=== PATIENT | male | born 1940 | race Caucasian/White ===

== ENCOUNTER 2017-07-20 22:58 | Observation (INO) | payer MEDICARE, BC ==
[2017-07-20] MEDS ORDERED: Acetaminophen 500 MG Tab PO ONE (23:22)
--- NOTE | 2017-07-20 23:41 | EDM.PDOC ---
ED HPI GENERAL MEDICAL PROBLEM - General Chief Complaint: Fever Stated Complaint: ILLNESS Time Seen by Provider: 07/20/17 23:05 Source of Information: Reports: Patient, Family History Limitations: Reports: No Limitations - History of Present Illness INITIAL COMMENTS - FREE TEXT/NARRATIVE: 76 years old male patient brought in by ambulance from home with chief complaint of not feeling well and having a fever. Started today. Denies any headache or neck pain. Denies any sore throat or runny nose or congestion. Denies any cough. Denies any chest pain or shortness breath. Denies any abdominal pain diarrhea or constipation. Patient stated that today it is a little bit harder for him to urinate. However denies any frequency or dysuria. No blood in the urine or stool. No sick contact. No recent travel. Bilateral Shoulder Pain Score (Numeric/FACES): 8 - Related Data Allergies Allergy/AdvReac Type Severity Reaction Status Date / Time simvastatin Allergy Muscle Verified 07/20/17 23:06 Aches cats Allergy Unknown not known Uncoded 07/20/17 23:06 cow milk Allergy Unknown unknown Uncoded 07/20/17 23:06 dogs Allergy Unknown unknown Uncoded 07/20/17 23:06 environmental Allergy Unknown unknown Uncoded 07/20/17 23:06 horses Allergy Unknown unknown Uncoded 07/20/17 23:06 Home Meds: Home Meds Cyclobenzaprine [Flexeril] 10 mg PO BEDTIME PRN 05/06/14 [History] Metoprolol Succinate [Toprol XL 50mg] 25 mg PO DAILY 05/06/14 [History] predniSONE 7.5 mg PO DAILY 05/06/14 [History] Albuterol [Proair HFA] 2 inh PO Q4HR PRN 08/23/16 [History] Folic Acid [Folic Acid] 1 mg PO DAILY 08/23/16 [History] Methotrexate Sodium [Methotrexate] 7 tab PO .EVERY 7 DAYS 08/23/16 [History] Docusate Sodium [Colace] 100 - 200 mg PO DAILY PRN 08/25/16 [History] Past Medical History HEENT History: Reports: Hard of Hearing Cardiovascular History: Reports: High Cholesterol, Hypertension Respiratory History: Reports: Sleep Apnea Gastrointestinal History: Reports: Chronic Constipation, Hemorrhoids, Other ( See Below) Other Gastrointestinal History: "yellow jaundice" at age 3yo Musculoskeletal History: Reports: RA Oncologic (Cancer) History: Reports: Other (See Below) Other Oncologic History: skin cancer Dermatologic History: Reports: Other (See Below) Other Dermatologic History: skin cancer - Past Surgical History GI Surgical History: Reports: Colonoscopy, Hernia, Inguinal Dermatological Surgical History: Reports: Skin Biopsy Social & Family History - Tobacco Use Smoking Status *Q: Unknown Ever Smoked - Recreational Drug Use Recreational Drug Use: No ED ROS GENERAL - Review of Systems Review Of Systems: ROS reveals no pertinent complaints other than HPI. ED EXAM, SEPSIS - Physical Exam Exam: See Below Exam Limited By: No Limitations General Appearance: Alert, WD/WN, No Apparent Distress Ears: Normal External Exam, Normal Canal, Hearing Grossly Normal, Normal TMs Nose: Normal Inspection, Normal Mucosa, No Blood Throat/Mouth: Normal Inspection, Normal Lips, Normal Teeth, Normal Gums, Normal Oropharynx, Normal Voice, No Airway Compromise Head: Atraumatic, Normocephalic Neck: Normal Inspection, Supple, Non-Tender, Full Range of Motion Respiratory/Chest: No Respiratory Distress, No Accessory Muscle Use, Chest Non- Tender, Crackles (Mild basilar crackle in the left lower lobe.) Cardiovascular: Normal Peripheral Pulses, No Edema, No Gallop, No JVD, No Murmur , No Rub, Tachycardia Extremities: Normal Inspection, Normal Range of Motion, Non-Tender, No Pedal Edema, Normal Capillary Refill Neurological: Alert, Oriented, CN II-XII Intact, Normal Cognition, Normal Gait, Normal Reflexes, No Motor/Sensory Deficits Psychiatric: Normal Affect, Normal Mood Course - Vital Signs Last Recorded V/S: Last Vital Signs Temp 38.0 C 07/21/17 00:00 Pulse 105 H 07/20/17 23:16 Resp 15 07/21/17 00:00 BP 141/92 H 07/21/17 00:00 Pulse Ox 92 L 07/21/17 00:00 - Orders/Labs/Meds Orders: Active Orders 24 hr Category Date Time Status Chest 1V Frontal [CR] Urgent Exams 07/20/17 23:32 Taken CULTURE BLOOD [BC] Urgent Lab 07/20/17 00:05 Received CULTURE BLOOD [BC] Urgent Lab 07/20/17 00:15 Received Piperacillin/Tazobactam [Zosyn] 3.375 gm Med 07/21/17 01:00 Ordered Sodium Chloride 0.9% [Normal Saline] 50 ml IV Q6H Sodium Chloride 0.9% [Normal Saline] 500 ml Med 07/20/17 23:45 Active IV .BOLUS Vancomycin 1 gm Med 07/21/17 00:50 Ordered Sodium Chloride 0.9% [Normal Saline] 250 ml IV ONETIME Blood Culture x2 Reflex Set [OM.PC] Urgent Oth 07/20/17 23:32 Ordered Medication Orders Sodium Chloride (Normal Saline) 500 mls @ 999 mls/hr IV .BOLUS [facility] Last Admin: 07/21/17 00:01 Dose: 999 mls/hr Piperacillin Sod/Tazobactam (Sod 3.375 gm/ Sodium Chloride) 50 mls @ 100 mls/ hr IV Q6H [facility] Vancomycin HCl 1 gm/ Sodium (Chloride) 250 mls @ 150 mls/hr IV ONETIME ONE Stop: 07/21/17 02:29 Labs: Laboratory Tests 07/20/17 07/20/17 07/20/17 Range/Units 23:32 23:32 23:32 WBC 13.7 H (4.5-11.0) K/uL RBC 4.38 (4.30-5.90) M/uL Hgb 13.7 (12.0-15.0) g/dL Hct 40.3 (40.0-54.0) % MCV 92 (80-98) fL MCH 31 (27-31) pg MCHC 34 (32-36) % Plt Count 182 (150-400) K/uL Neut % (Auto) 82 H (36-66) % Lymph % (Auto) 5 L (24-44) % Mcmullen % (Auto) 12 H (2-6) % Eos % (Auto) 0 L (2-4) % Baso % (Auto) 0 (0-1) % Sodium 132 L (140-148) mmol/L Potassium 4.0 (3.6-5.2) mmol/L Chloride 99 L (100-108) mmol/L Carbon Dioxide 25 (21-32) mmol/L Anion Gap 12.0 (5.0-14.0) mmol/L BUN 13 (7-18) mg/dL Creatinine 1.0 (0.8-1.3) mg/dL Est Cr Clr Drug Dosing 62.70 mL/min Estimated GFR (MDRD) > 60 (>60) Glucose 188 H (74-106) mg/dL Lactic Acid 1.8 (0.4-2.0) mmol/L Calcium 8.6 (8.5-10.1) mg/dL Total Bilirubin 1.1 H (0.2-1.0) mg/dL AST 20 (15-37) U/L ALT 29 (12-78) U/L Alkaline Phosphatase 96 (46-116) U/L Total Protein 7.4 (6.4-8.2) g/dL Albumin 3.6 (3.4-5.0) g/dL Globulin 3.8 H (2.3-3.5) g/dL Albumin/Globulin Ratio 1.0 L (1.2-2.2) Urine Color Urine Appearance Urine pH (4.5-8.0) Ur Specific [place] (1.008-1.030) Urine Protein (NEGATIVE) mg/dL Urine Glucose (UA) (NEGATIVE) mg/dL Urine Ketones (NEGATIVE) mg/dL Urine Occult Blood (NEGATIVE) Urine Nitrite (NEGAITVE) Urine Bilirubin (NEGATIVE) Urine Urobilinogen (NORMAL) mg/dL Ur Leukocyte Esterase (NEGATIVE) Urine RBC (0-5) Urine WBC (0-5) Ur Epithelial Cells Amorphous Sediment Urine Bacteria Urine Mucus 07/20/17 Range/Units 23:52 WBC (4.5-11.0) K/uL RBC (4.30-5.90) M/uL Hgb (12.0-15.0) g/dL Hct (40.0-54.0) % MCV (80-98) fL MCH (27-31) pg MCHC (32-36) % Plt Count (150-400) K/uL Neut % (Auto) (36-66) % Lymph % (Auto) (24-44) % Mcmullen % (Auto) (2-6) % Eos % (Auto) (2-4) % Baso % (Auto) (0-1) % Sodium (140-148) mmol/L Potassium (3.6-5.2) mmol/L Chloride (100-108) mmol/L Carbon Dioxide (21-32) mmol/L Anion Gap (5.0-14.0) mmol/L BUN (7-18) mg/dL Creatinine (0.8-1.3) mg/dL Est Cr Clr Drug Dosing mL/min Estimated GFR (MDRD) (>60) Glucose (74-106) mg/dL Lactic Acid (0.4-2.0) mmol/L Calcium (8.5-10.1) mg/dL Total Bilirubin (0.2-1.0) mg/dL AST (15-37) U/L ALT (12-78) U/L Alkaline Phosphatase (46-116) U/L Total Protein (6.4-8.2) g/dL Albumin (3.4-5.0) g/dL Globulin (2.3-3.5) g/dL Albumin/Globulin Ratio (1.2-2.2) Urine Color Yellow Urine Appearance Clear Urine pH 6.5 (4.5-8.0) Ur Specific [place] 1.010 (1.008-1.030) Urine Protein Negative (NEGATIVE) mg/dL Urine Glucose (UA) 250 H (NEGATIVE) mg/dL Urine Ketones Negative (NEGATIVE) mg/dL Urine Occult Blood Negative (NEGATIVE) Urine Nitrite Negative (NEGAITVE) Urine Bilirubin Negative (NEGATIVE) Urine Urobilinogen Normal (NORMAL) mg/dL Ur Leukocyte Esterase Negative (NEGATIVE) Urine RBC 0-5 (0-5) Urine WBC 0-5 (0-5) Ur Epithelial Cells Few Amorphous Sediment Few Urine Bacteria Rare Urine Mucus Few Meds: Medications Generic Name Dose Route Start Last Admin Trade Name Freq PRN Reason Stop Dose Admin Sodium Chloride 500 mls @ 999 mls/hr 07/20/17 23:45 07/21/17 00:01 Normal Saline IV 999 mls/hr .BOLUS [facility] Administration Piperacillin Sod/Tazobactam 50 mls @ 100 mls/hr 07/21/17 01:00 Sod 3.375 gm/ Sodium Chloride IV Q6H [facility] Vancomycin HCl 1 gm/ Sodium 250 mls @ 150 mls/hr 07/21/17 00:50 Chloride IV 07/21/17 02:29 ONETIME ONE Discontinued Medications Generic Name Dose Route Start Last Admin Trade Name Freq PRN Reason Stop Dose Admin Acetaminophen 1,000 mg 07/20/17 23:22 07/20/17 23:28 Tylenol Extra Strength PO 07/20/17 23:23 1,000 mg ONETIME ONE Administration - Re-Assessments/Exams Free Text/Narrative Re-Assessment/Exam: 07/20/17 23:40 Patient was seen and examined shortly after arrival. Started on monitoring manager. Patient meets SIRS criteria. Lactic acid was drawn and blood culture. IV Given 500 ml normal saline bolus. Given 1 g of Tylenol. Lab and imaging reviewed with the patient and his at the bedside. Chest x-ray suspicious for left lower lobe pneumonia. Urine unremarkable. Blood culture is pending. Patient is immunocompromised on methotrexate with no definitive clear source of infection and patient meets SIRS criteria. I opted to have him on broad- spectrum antibiotic Vanco, Zosyn for broader coverage. We'll might also need to add Levaquin for atypical coverage. Case was discussed was Dr. Cardenas hospitalist sales operations manager and he accepted admission for further management. Decision regarding adding Levaquin or any other antibiotic regimen will be up to him. Patient agrees with the plan. Stable for admission. 07/21/17 00:59 Departure - Departure Time of Disposition: 00:57 Disposition: Admitted As Inpatient 68 Condition: Good Clinical Impression: Sepsis, Pneumonia - Discharge Information Referrals: Dewey Cardenas MD [Primary Care Provider] - Forms: ED Department Discharge - My Orders Last 24 Hours: My Active Orders 07/20/17 00:05 CULTURE BLOOD [BC] Urgent 07/20/17 00:15 CULTURE BLOOD [BC] Urgent 07/20/17 23:32 Chest 1V Frontal [CR] Urgent Blood Culture x2 Reflex Set [OM.PC] Urgent 07/20/17 23:45 Sodium Chloride 0.9% [Normal Saline] 500 ml IV .BOLUS 07/21/17 00:50 Vancomycin 1 gm Sodium Chloride 0.9% [Normal Saline] 250 ml IV ONETIME 07/21/17 01:00 Piperacillin/Tazobactam [Zosyn] 3.375 gm Sodium Chloride 0.9% [Normal Saline] 50 ml IV Q6H - Assessment/Plan Last 24 Hours: My Active Orders 07/20/17 00:05 CULTURE BLOOD [BC] Urgent 07/20/17 00:15 CULTURE BLOOD [BC] Urgent 07/20/17 23:32 Chest 1V Frontal [CR] Urgent Blood Culture x2 Reflex Set [OM.PC] Urgent 07/20/17 23:45 Sodium Chloride 0.9% [Normal Saline] 500 ml IV .BOLUS 07/21/17 00:50 Vancomycin 1 gm Sodium Chloride 0.9% [Normal Saline] 250 ml IV ONETIME 07/21/17 01:00 Piperacillin/Tazobactam [Zosyn] 3.375 gm Sodium Chloride 0.9% [Normal Saline] 50 ml IV Q6H
[2017-07-20] MEDS ORDERED: Sodium Chloride 0.9% 500 ML IV SCH (23:45)
[2017-07-21] MEDS ORDERED: Piperacillin/Tazobactam 3.375 GM in Sodium Chloride 0.9% 50 ML IV SCH ×2 (01:00→02:00)
[2017-07-21] MEDS ORDERED: Acetaminophen 325 MG Tab PO PRN (01:43)
[2017-07-21] MEDS ORDERED: Sodium Chloride 0.9% 1,000 ML IV SCH (01:45)
[2017-07-21] MEDS ORDERED: CYCLOBENZAPRINE 10 MG PO PRN (01:53)
[2017-07-21] MEDS ORDERED: Docusate Sodium 100 MG Cap PO PRN (01:53)
[2017-07-21] MEDS ORDERED: Albuterol 8 GM Inhaler INH PRN ×2 (01:53→01:59)
[2017-07-21] MEDS ORDERED: Piperacillin/Tazobactam/Dext 3.375 GM in Premix Bag 1 BAG IV SCH ×2 (03:00→09:00)
[2017-07-21] MEDS ORDERED: Sodium Chloride 0.9% 50 ML ONE (03:35)
--- NOTE | 2017-07-21 05:46 | HP ---
CHIEF COMPLAINT: Fever. HISTORY OF PRESENT ILLNESS: This is a 76-year-old with significant rheumatoid arthritis, which has been somewhat flaring in shoulders with more pain, just did not feel well today, but really was not real descriptive as far as explaining how he did not feel well. He complained of his shoulders being painful and was noted to have a fever. His was concerned that maybe he was having a stroke, although there was no increase of symptoms in his arms or legs, swallowing or speaking problems. They called the ambulance for further evaluation, was noted to have a fever, but no definite identifiable source for the fever was identified. I was asked to admit the patient for further evaluation for a possible sepsis. PAST MEDICAL HISTORY: Significant for rheumatoid arthritis. MEDICATIONS: Albuterol inhaler p.r.n., Flexeril 10 mg at bedtime, docusate sodium 100 to 200 mg daily p.r.n., folic acid 1 mg daily, methotrexate 2.5 mg tablets 7 tablets every 7 days, metoprolol 25 mg daily extended release, and prednisone 2.5 mg daily. ALLERGIES: SIMVASTATIN, CATS, COW MILK, DOGS, HORSES, AND OTHER ENVIRONMENTAL ALLERGIES. SOCIAL HISTORY: Nonsmoker. . FAMILY HISTORY: Noncontributory. REVIEW OF SYSTEMS: Denies headaches, vision changes, or upper respiratory symptoms. No chest pain, shortness of breath, maybe a minimal cough. No nausea, vomiting, diarrhea, or constipation. No urinary problems reported. No swelling in his legs. No skin problems. No new neurologic complaints. He does complain of bilateral shoulder pain. OBJECTIVE: VITAL SIGNS: Weight 74 kg; initially temperature was 38.8, now 37.4; pulse 102; blood pressure 148/85; respirations 15; and O2 saturation 92% on room air. GENERAL: The patient is alert and oriented x3. Pharynx is clear. NECK: Supple. No adenopathy, thyromegaly, JVD, or carotid bruits. LUNGS: Clear. HEART: Regular without murmurs. ABDOMEN: Soft and nontender. No mass or organomegaly palpated. EXTREMITIES: No edema. SKIN: Negative. NEURO: Cranial nerves II through XII were grossly intact. Moves all extremities equally, but does have pain in his shoulders. LABORATORY DATA: White count slightly elevated at 13.7, hemoglobin 13.7, platelets 182,000 with 82% neutrophils, 5% lymphocytes, and 12% monocytes. Sodium 132, potassium 4.0, chloride 99, BUN 13, creatinine 1.0, and glucose 188. Liver function was normal. Had some sugar in his urine, but otherwise urine was unremarkable. IMAGING: Chest x-ray does not show a definite infiltrate, but await Radiology interpretation. Blood cultures are pending. ASSESSMENT: 1. Fever of unknown origin. The patient already started on IV vancomycin and Zosyn in the emergency room, which will continue. We will admit him under observation, anticipate less than 2 midnight stay. 2. Rheumatoid arthritis, for which he does see Rheumatology, on methotrexate. Dewey Cardenas MD /[id number]
[2017-07-21] MEDS: FOLIC ACID 1 MG PO SCH (08:53)
[2017-07-21] MEDS: PREDNISONE 2.5 MG PO SCH (08:54)
[2017-07-21] MEDS: Metoprolol Succinate 25 MG (PTOM) PO SCH (08:55)
[2017-07-21] MEDS ORDERED: predniSONE 5 MG Tab PO SCH (09:00)
[2017-07-22 08:07] VITALS: BP 141/96
[2017-07-22] MEDS: PREDNISONE 2.5 MG PO SCH (08:55)
[2017-07-22] MEDS: FOLIC ACID 1 MG PO SCH (08:55)
[2017-07-22] MEDS: Metoprolol Succinate 25 MG (PTOM) PO SCH (08:56)
--- NOTE | 2017-07-22 10:05 | PCM.DCSUM1 ---
Discharge Summary - Hospital Course Brief History: 76-year-old male with history of rheumatoid arthritis who presented with increased shoulder pain and weakness. He was admitted with concern for pneumonia and sepsis. - Discharge Data Discharge Date: 07/22/17 Discharge Disposition: Home, Self-Care 01 Condition: Good - Discharge Diagnosis/Problem(s) (1) Rheumatoid arthritis flare SNOMED Code(s): 125965989 ICD Code: M06.9 - RHEUMATOID ARTHRITIS, UNSPECIFIED Status: Acute - Patient Summary/Data Hospital Course: Jose was admitted for management of possible sepsis after he presented with fever and increased joint pains. There is no obvious route for infection at the time of presentation but with his mild tachycardia and fever there was concern for sepsis. He was started on broad-spectrum antibiotics at the time of presentation. After admission he did not have any additional fevers. The morning after admission he is feeling a little better but still has a fair amount of increased pain from baseline. He does not have a cough. His urine is clear. No abdominal pain. I elected to discontinue antibiotics with the suspicion that this is more of a rheumatoid arthritis flare been an infectious issue. We did increase his prednisone from 2.5 to 5 mg. Overnight following discontinuation of antibiotics there were no acute events. He did have one mild temperature elevation but no true fever. With the increased prednisone he had a fairly rapid improvement in his joint pains including both shoulders and wrists. He feels nearly back to his usual self at this time. His appetite has been good. He has been ambulating effectively and feels safe to go home at this point. He will continue his increased dose of prednisone for 4 more days before returning to his usual 2.5 mg dose. He will be following up this week if symptoms do not continue to improve or if things get worse. - Patient Instructions Diet: Regular Diet as Tolerated Activity: As Tolerated Showering/Bathing: May Shower Notify Provider of: Fever, Increased Pain, Nausea and/or Vomiting Other/Special Instructions: 1. You were in the hospital for management of fever and increased pain in your shoulders. Initially there was concern for infection but I do not believe you have an active infection. I think all of your symptoms were related to a flare of your rheumatoid arthritis. I would recommend that you take your methotrexate today as scheduled. I also recommend that you increase your prednisone to 5 mg daily for the next 4 days. 2. Please continue your other medications as previously prescribed with the exception of the prednisone listed above. 3. Please seek medical attention if you develop fever greater than 101, have severe pain not controlled with your current medications or if you develop sudden onset of shortness of breath or chest pain. - Discharge Plan Home Medications: Home Meds Cyclobenzaprine [Flexeril] 10 mg PO BEDTIME PRN 05/06/14 [History] Metoprolol Succinate [Toprol XL 50mg] 25 mg PO DAILY 05/06/14 [History] predniSONE 2.5 mg PO DAILY 05/06/14 [History] Albuterol [Proair HFA] 2 inh PO Q4HR PRN 08/23/16 [History] Folic Acid 1 mg PO DAILY 08/23/16 [History] Methotrexate Sodium [Methotrexate] 7 tab PO .EVERY 7 DAYS 08/23/16 [History] Docusate Sodium [Colace] 100 - 200 mg PO DAILY PRN 08/25/16 [History] Patient Handouts: Rheumatoid Arthritis, Prednisone tablets Referrals: Dewey Cardenas MD [Primary Care Provider] - (f/u as needed if symptoms do not continue to get better or they get worse) - Discharge Summary/Plan Comment DC Time >30 min.: No (25) - Patient Data Vitals - Most Recent: Last Vital Signs Temp 36.9 C 07/22/17 08:05 Pulse 93 07/22/17 08:56 Resp 16 07/22/17 08:05 BP 141/96 H 07/22/17 08:56 Pulse Ox 96 07/22/17 08:05 Weight - Most Recent: 78.925 kg I&O - Last 24 hours: Intake & Output 07/21/17 07/22/17 07/22/17 22:59 06:59 14:59 Intake Total 120 Output Total 200 500 450 Balance -200 -380 -450 Med Orders - Current: Current Medications Acetaminophen (Tylenol) 650 mg PO Q4H PRN PRN Reason: Pain (Mild 1-3)/fever Last Admin: 07/21/17 14:18 Dose: 650 mg Albuterol (Ventolin Hfa) 0 gm INH Q4H PRN PRN Reason: Shortness of Breath Cyclobenzaprine HCl (Flexeril) 10 mg PO BEDTIME PRN PRN Reason: Cramping Docusate Sodium (Colace) 100 - 200 mg PO DAILY PRN PRN Reason: Constipation Folic Acid (Folic Acid) 1 mg PO DAILY [facility] Last Admin: 07/22/17 08:55 Dose: 1 mg Metoprolol Succinate (Toprol Xl) 25 mg PO DAILY [facility] Last Admin: 07/22/17 08:56 Dose: 25 mg Prednisone 2.5mg ( (Ptom)) 0 each PO DAILY [facility] Last Admin: 07/22/17 08:55 Dose: 1 each Discontinued Medications Acetaminophen (Tylenol Extra Strength) 1,000 mg PO ONETIME ONE Stop: 07/20/17 23:23 Last Admin: 07/20/17 23:28 Dose: 1,000 mg Albuterol (Ventolin Hfa) 2 gm INH Q4H PRN PRN Reason: Shortness of Breath Sodium Chloride (Normal Saline) 500 mls @ 999 mls/hr IV .BOLUS [facility] Last Admin: 07/21/17 00:01 Dose: 999 mls/hr Piperacillin Sod/Tazobactam (Sod 3.375 gm/ Sodium Chloride) 50 mls @ 100 mls/ hr IV Q6H [facility] Last Admin: 07/21/17 03:02 Dose: Not Given Vancomycin HCl 1 gm/ Sodium (Chloride) 250 mls @ 150 mls/hr IV ONETIME ONE Stop: 07/21/17 02:29 Last Admin: 07/21/17 01:40 Dose: 150 mls/hr Sodium Chloride (Normal Saline) 1,000 mls @ 125 mls/hr IV ASDIRECTED [facility] Last Admin: 07/21/17 03:18 Dose: 125 mls/hr Piperacillin Sod/Tazobactam (Sod 3.375 gm/ Sodium Chloride) 50 mls @ 100 mls/ hr IV Q6H [facility] Last Admin: 07/21/17 03:02 Dose: Not Given Piperacillin/Tazobactam/ (Dextrose 3.375 gm/ Premix) 50 mls @ 100 mls/hr IV Q6H [facility] Last Admin: 07/21/17 03:46 Dose: 100 mls/hr Sodium Chloride (Normal Saline) Confirm Administered Dose 50 mls @ as directed .ROUTE .STK-MED ONE Stop: 07/21/17 03:36 Last Admin: 07/21/17 03:45 Dose: Not Given Piperacillin/Tazobactam/ (Dextrose 3.375 gm/ Premix) 50 mls @ 100 mls/hr IV Q6H [facility] Last Admin: 07/21/17 08:58 Dose: 100 mls/hr - Exam Quality Assessment: Denies: Supplemental Oxygen General: Reports: Alert, Oriented, Cooperative, No Acute Distress Neck: Reports: Supple Lungs: Reports: Normal Respiratory Effort GI/Abdominal Exam: Soft, No Distention Extremities: Increased Warmth (mild left anterior shoulder), Other (No thickening or warmth of either wrist joint) Psy/Mental Status: Reports: Alert, Normal Affect *Q Meaningful Use (DIS) - VTE *Q VTE Criteria *Q: - Stroke *Q Stroke Criteria *Q: - AMI *Q AMI Criteria *Q:
--- NOTE | 2017-07-23 09:23 | CR ---
Chest 1V Frontal INDICATION: fever FINDINGS: Comparison 04/07/2012. Shallow inspiration. No focal infiltrate. Chest otherwise negative.
== END 2017-07-22 10:55 | disposition home or self-care (01) ==
LOC: JP.ED 22:58 → JP.MS 07-21 01:43
PROVIDERS: ADMIT Family Medicine; ATTEND Internal Medicine
DX: M06.9 Rheumatoid arthritis, unspecified (principal); Z79.899 Other long term (current) drug therapy; Z88.8 Allergy status to other drugs, medicaments and biological substances; Z91.011 Allergy to milk products; Z91.048 Other nonmedicinal substance allergy status
CPT/HCPCS: 36415; 71010; 80048; 80053; 81001; 83605; 85025; 85027; 87040; 87086; 96361; 96365; 96366; 96367; 99217; 99284; 99285; A9270; G0378; J2543; J3370; J7040; J7050

== ENCOUNTER 2018-05-22 00:52 | Emergency (ER) | payer MEDICARE, BC ==
--- NOTE | 2018-05-22 01:23 | EDM.PDOC ---
ED HPI GENERAL MEDICAL PROBLEM - General Chief Complaint: Gastrointestinal Problem Stated Complaint: MEDICAL VIA NORTH Time Seen by Provider: 05/22/18 01:18 Source of Information: Reports: Patient, EMS, Old Records History Limitations: Reports: No Limitations - History of Present Illness INITIAL COMMENTS - FREE TEXT/NARRATIVE: 77 yo male developed nausea without vomiting and some diaphoresis tonight at home. EMS was called for transport. Is feeling almost back to normal on arrival. No fever or chest pain. No SOB. BM's have been normal. Feels worse if he tries to stand up. Onset: Today Onset Date: 05/22/18 Onset Time: 00:20 Duration: Minutes:, Improving Quality: Reports: Other (denies pain) Severity: Moderate (nausea) Improves with: Reports: Other (time or lying down) Worsens with: Reports: Other (standing) Context: Reports: Other (unknown) Associated Symptoms: Reports: Diaphoresis (now gone), Nausea/Vomiting (no vomiting). Denies: Chest Pain, Cough, Fever/Chills, Headaches, Shortness of Breath Treatments TRAINING COORDINATOR: Reports: Other (see below) Other Treatments TRAINING COORDINATOR: none - Related Data Allergies Allergy/AdvReac Type Severity Reaction Status Date / Time simvastatin Allergy Muscle Verified 05/22/18 01:43 Aches cats Allergy Unknown not known Uncoded 05/22/18 01:43 cow milk Allergy Unknown unknown Uncoded 05/22/18 01:43 dogs Allergy Unknown unknown Uncoded 05/22/18 01:43 environmental Allergy Unknown unknown Uncoded 05/22/18 01:43 horses Allergy Unknown unknown Uncoded 05/22/18 01:43 Home Meds: Home Meds Cyclobenzaprine [Flexeril] 10 mg PO BEDTIME PRN 05/06/14 [History] Metoprolol Succinate [Toprol XL 50mg] 25 mg PO DAILY 05/06/14 [History] Albuterol [Proair HFA] 2 inh PO Q4HR PRN 08/23/16 [History] Folic Acid 1 mg PO DAILY 08/23/16 [History] Methotrexate Sodium [Methotrexate] 7 tab PO .EVERY 7 DAYS 08/23/16 [History] Docusate Sodium [Colace] 100 - 200 mg PO DAILY PRN 08/25/16 [History] Past Medical History HEENT History: Reports: Hard of Hearing Cardiovascular History: Reports: High Cholesterol, Hypertension Respiratory History: Reports: Sleep Apnea Gastrointestinal History: Reports: Chronic Constipation, Hemorrhoids, Other ( See Below) Other Gastrointestinal History: "yellow jaundice" at age 3yo Musculoskeletal History: Reports: RA Oncologic (Cancer) History: Reports: Other (See Below) Other Oncologic History: skin cancer Dermatologic History: Reports: Other (See Below) Other Dermatologic History: skin cancer - Past Surgical History GI Surgical History: Reports: Colonoscopy, Hernia, Inguinal Dermatological Surgical History: Reports: Skin Biopsy Social & Family History - Caffeine Use Caffeine Use: Reports: None ED ROS GENERAL - Review of Systems Review Of Systems: See Below Constitutional: Reports: Diaphoresis HEENT: Reports: No Symptoms Respiratory: Reports: No Symptoms Cardiovascular: Reports: No Symptoms Endocrine: Reports: No Symptoms GI/Abdominal: Reports: No Symptoms : Reports: No Symptoms Musculoskeletal: Reports: No Symptoms Skin: Reports: Diaphoresis Neurological: Reports: No Symptoms, Tremors (chronic) ED EXAM, GI/ABD - Physical Exam Exam: See Below Exam Limited By: No Limitations General Appearance: Alert, WD/WN, No Apparent Distress Eyes: Bilateral: Normal Appearance Ears: Normal External Exam, Normal Canal, Hearing Grossly Normal Nose: Normal Inspection, Normal Mucosa, No Blood Throat/Mouth: Normal Inspection, Normal Lips, Normal Oropharynx, Normal Voice, No Airway Compromise Head: Atraumatic, Normocephalic Neck: Normal Inspection, Supple, Non-Tender Respiratory/Chest: No Respiratory Distress, Lungs Clear, Normal Breath Sounds, No Accessory Muscle Use Cardiovascular: Regular Rate, Rhythm, No Edema GI/Abdominal Exam: Normal Bowel Sounds, Soft, Non-Tender, Distended. No: No Distention, Guarding, Rigid, Rebound, Tender Back Exam: Normal Inspection. No: CVA Tenderness (R), CVA Tenderness (L) Extremities: Normal Inspection, Normal Range of Motion, Non-Tender, Pedal Edema (trace to both LE's below the knees). No: No Pedal Edema Neurological: Alert, Oriented, CN II-XII Intact, Normal Cognition, No Motor/ Sensory Deficits, Other (talks slowly and has mask-like facies, ? Parkinson's dz ) Psychiatric: Normal Mood, Flat Affect Skin Exam: Warm, Dry, Intact, Normal Color, No Rash Course - Vital Signs Last Recorded V/S: Last Vital Signs Temp 35.6 C 05/22/18 00:54 Pulse 66 05/22/18 01:25 Resp 14 05/22/18 01:25 BP 167/80 H 05/22/18 01:25 Pulse Ox 96 05/22/18 01:25 - Orders/Labs/Meds Orders: Active Orders 24 hr Category Date Time Status Abdomen 1V Upright [CR] Stat Exams 05/22/18 01:17 Taken UA W/MICROSCOPIC [URIN] Stat Lab 05/22/18 01:21 Ordered Labs: Laboratory Tests 05/22/18 05/22/18 Range/Units 01:25 01:25 WBC 6.9 (4.5-11.0) K/uL RBC 4.29 L (4.30-5.90) M/uL Hgb 13.6 (12.0-15.0) g/dL Hct 40.6 (40.0-54.0) % MCV 95 (80-98) fL MCH 32 H (27-31) pg MCHC 34 (32-36) % Plt Count 155 (150-400) K/uL Sodium 139 L (140-148) mmol/L Potassium 3.8 (3.6-5.2) mmol/L Chloride 103 (100-108) mmol/L Carbon Dioxide 27 (21-32) mmol/L Anion Gap 12.8 (5.0-14.0) mmol/L BUN 16 (7-18) mg/dL Creatinine 1.0 (0.8-1.3) mg/dL Est Cr Clr Drug Dosing 61.75 mL/min Estimated GFR (MDRD) > 60 (>60) Glucose 123 H (74-106) mg/dL Calcium 8.7 (8.5-10.1) mg/dL Troponin I < 0.017 (0.000-0.056) ng/mL - Radiology Interpretation Free Text/Narrative:: upright abd film-no sign of obstruction Departure - Departure Time of Disposition: 02:18 Disposition: Home, Self-Care 01 Condition: Good Clinical Impression: Nausea - Discharge Information *PRESCRIPTION DRUG MONITORING PROGRAM REVIEWED*: Not Applicable *COPY OF PRESCRIPTION DRUG MONITORING REPORT IN PATIENT JO ANN: Not Applicable Instructions: Nausea and Vomiting, Adult, [id number] Referrals: PCP,None [Primary Care Provider] - Forms: ED Department Discharge Additional Instructions: Get plenty of fluids daily, consider a dose of Miralax daily with a glass of water to keep your stools soft. Recheck with your provider if sx's continue, return here if worse. - My Orders Last 24 Hours: My Active Orders 05/22/18 01:17 Abdomen 1V Upright [CR] Stat 05/22/18 01:21 UA W/MICROSCOPIC [URIN] Stat - Assessment/Plan Last 24 Hours: My Active Orders 05/22/18 01:17 Abdomen 1V Upright [CR] Stat 05/22/18 01:21 UA W/MICROSCOPIC [URIN] Stat
[2018-05-22 02:18] VITALS: BP 164/75
--- NOTE | 2018-05-22 10:07 | CR ---
Abdomen 1V Upright FINDINGS: The bowel gas pattern is unremarkable. There is no bowel distention. There are no pathologi c air-fluid levels. No free air is seen. No pathologic calcifications are demonstrated. IMPRESSION: No acute findings are demonstrated.
== END 2018-05-22 02:46 | disposition home or self-care (01) ==
LOC: JP.ED 00:52
DX: R11.0 Nausea (principal); Z91.011 Allergy to milk products; Z91.09 Other allergy status, other than to drugs and biological substances; I10 Essential (primary) hypertension; Z88.8 Allergy status to other drugs, medicaments and biological substances
CPT/HCPCS: 36415; 74018; 74018-26; 80048; 84484; 85027; 99284

== ENCOUNTER 2018-11-03 14:16 | Emergency (ER) | payer MEDICARE, BC ==
[2018-11-03 15:57] VITALS: BP 141/79
--- NOTE | 2018-11-03 17:27 | EDM.PDOC ---
ED HPI GENERAL MEDICAL PROBLEM - General Chief Complaint: Neurological Problem Stated Complaint: SPEECH DISTURBANCE Time Seen by Provider: 11/03/18 14:57 Source of Information: Reports: Patient, Family History Limitations: Reports: No Limitations - History of Present Illness INITIAL COMMENTS - FREE TEXT/NARRATIVE: This man is here for some vague neuro symptoms. Last night he had a little problem word finding and then today they felt like his speech was a little bit slurred. The patient says that his mouth is dry and that's causing the problem. Sometimes a little bit weak but he's never had any kind of lateralizing weakness. Other than that he feels - Related Data Allergies Allergy/AdvReac Type Severity Reaction Status Date / Time simvastatin Allergy Muscle Verified 11/03/18 14:44 Aches cats Allergy Unknown not known Uncoded 11/03/18 14:44 cow milk Allergy Unknown unknown Uncoded 11/03/18 14:44 dogs Allergy Unknown unknown Uncoded 11/03/18 14:44 environmental Allergy Unknown unknown Uncoded 11/03/18 14:44 horses Allergy Unknown unknown Uncoded 11/03/18 14:44 Home Meds: Home Meds Cyclobenzaprine [Flexeril] 10 mg PO BEDTIME PRN 05/06/14 [History] Metoprolol Succinate [Toprol XL 50mg] 25 mg PO DAILY 05/06/14 [History] Albuterol [Proair HFA] 2 inh PO Q4HR PRN 08/23/16 [History] Folic Acid 1 mg PO DAILY 08/23/16 [History] Methotrexate Sodium [Methotrexate] 7 tab PO .EVERY 7 DAYS 08/23/16 [History] Docusate Sodium [Colace] 100 - 200 mg PO DAILY PRN 08/25/16 [History] Past Medical History HEENT History: Reports: Hard of Hearing Cardiovascular History: Reports: High Cholesterol, Hypertension Respiratory History: Reports: Sleep Apnea Gastrointestinal History: Reports: Chronic Constipation, Hemorrhoids, Other ( See Below) Other Gastrointestinal History: "yellow jaundice" at age 3yo Musculoskeletal History: Reports: RA Oncologic (Cancer) History: Reports: Other (See Below) Other Oncologic History: skin cancer Dermatologic History: Reports: Other (See Below) Other Dermatologic History: skin cancer - Infectious Disease History Infectious Disease History: Reports: Chicken Pox - Past Surgical History GI Surgical History: Reports: Colonoscopy, Hernia, Inguinal Dermatological Surgical History: Reports: Skin Biopsy Social & Family History - Family History Family Medical History: Unobtainable - Tobacco Use Smoking Status *Q: Never Smoker - Caffeine Use Caffeine Use: Reports: None ED ROS GENERAL - Review of Systems Review Of Systems: ROS reveals no pertinent complaints other than HPI. ED EXAM, NEURO - Physical Exam Exam: See Below Exam Limited By: No Limitations General Appearance: Alert, WD/WN, No Apparent Distress, Other (Speech sounds just a tiny bit slurred but does sound Like his mouth is dry although his mouth is intact moist) Eye Exam: Bilateral Eye: EOMI, PERRL Ears: Normal External Exam Nose: Normal Inspection Throat/Mouth: Normal Oropharynx Head Exam: Atraumatic Neck: Normal Inspection Respiratory/Chest: Lungs Clear Cardiovascular: Regular Rate, Rhythm, No Murmur GI/Abdominal: Soft, Non-Tender Neurological: Alert, Normal Mood/Affect, CN II-XII Intact, Normal Gait (Normal gait with assistance), No Motor/Sensory Deficits, Oriented x 3, Other (Speech may be slightly slurred but it is intelligible to me) Extremities: Normal Inspection Psychiatric: Normal Affect Skin Exam: Warm, Dry Course - Vital Signs Last Recorded V/S: Last Vital Signs Temp 36.5 C 11/03/18 14:57 Pulse 68 11/03/18 15:56 Resp 16 11/03/18 15:10 BP 141/79 H 11/03/18 15:56 Pulse Ox 95 11/03/18 15:56 - Orders/Labs/Meds Orders: Active Orders 24 hr Category Date Time Status Head wo Cont [CT] Stat Exams 11/03/18 14:58 Taken Labs: Laboratory Tests 11/03/18 11/03/18 11/03/18 Range/Units 15:10 15:10 16:15 WBC 6.1 (4.5-11.0) K/uL RBC 4.34 (4.30-5.90) M/uL Hgb 13.8 (12.0-15.0) g/dL Hct 40.8 (40.0-54.0) % MCV 94 (80-98) fL MCH 32 H (27-31) pg MCHC 34 (32-36) % Plt Count 166 (150-400) K/uL Neut % (Auto) 73 H (36-66) % Lymph % (Auto) 14 L (24-44) % [place] % (Auto) 11 H (2-6) % Eos % (Auto) 2 (2-4) % Baso % (Auto) 1 (0-1) % Sodium 139 L (140-148) mmol/L Potassium 3.8 (3.6-5.2) mmol/L Chloride 100 (100-108) mmol/L Carbon Dioxide 28 (21-32) mmol/L Anion Gap 14.8 H (5.0-14.0) mmol/L BUN 15 (7-18) mg/dL Creatinine 1.1 (0.8-1.3) mg/dL Est Cr Clr Drug Dosing 55.27 mL/min Estimated GFR (MDRD) > 60 (>60) Glucose 112 H (74-106) mg/dL Calcium 9.5 (8.5-10.1) mg/dL Total Bilirubin 0.7 (0.2-1.0) mg/dL AST 20 (15-37) U/L ALT 30 (12-78) U/L Alkaline Phosphatase 95 (46-116) U/L Total Protein 7.6 (6.4-8.2) g/dL Albumin 3.6 (3.4-5.0) g/dL Globulin 4.0 H (2.3-3.5) g/dL Albumin/Globulin Ratio 0.9 L (1.2-2.2) Urine Color Yellow Urine Appearance Clear Urine pH 6.0 (4.5-8.0) Ur Specific [place] 1.015 (1.008-1.030) Urine Protein Negative (NEGATIVE) mg/dL Urine Glucose (UA) Normal (NEGATIVE) mg/dL Urine Ketones Negative (NEGATIVE) mg/dL Urine Occult Blood Negative (NEGATIVE) Urine Nitrite Negative (NEGAITVE) Urine Bilirubin Negative (NEGATIVE) Urine Urobilinogen Normal (NORMAL) mg/dL Ur Leukocyte Esterase Negative (NEGATIVE) Urine RBC 0-5 (0-5) Urine WBC 0-5 (0-5) Ur Epithelial Cells Rare Amorphous Sediment Not seen Urine Bacteria Not seen Urine Mucus Rare - Radiology Interpretation Free Text/Narrative:: Head CT showed just age-related changes. - Re-Assessments/Exams Free Text/Narrative Re-Assessment/Exam: 11/03/18 17:25 After all labs and CT back we had him stand up and walk around little bit and he did just fine. The nurse thinks he might benefit from some physical therapy but there's nothing that would make it dangerous for him to go home. Departure - Departure Time of Disposition: 17:25 Disposition: Home, Self-Care 01 Condition: Fair Clinical Impression: TIA (transient ischemic attack) - Discharge Information Referrals: Dewey Cardenas MD [Primary Care Provider] - Additional Instructions: It's possible that you had a very mild mini stroke. If you're not already taking aspirin or any other blood thinner they go ahead and take one 81 mg aspirin daily. Follow-up with your doctor within a day or 2. - My Orders Last 24 Hours: My Active Orders 11/03/18 14:58 Head wo Cont [CT] Stat - Assessment/Plan Last 24 Hours: My Active Orders 11/03/18 14:58 Head wo Cont [CT] Stat
== END 2018-11-03 17:41 | disposition home or self-care (01) ==
LOC: JP.ED 14:16
DX: G45.9 Transient cerebral ischemic attack, unspecified (principal); I10 Essential (primary) hypertension; M06.9 Rheumatoid arthritis, unspecified; Z79.899 Other long term (current) drug therapy; Z91.011 Allergy to milk products; Z91.09 Other allergy status, other than to drugs and biological substances
CPT/HCPCS: 36415; 70450; 80053; 81001; 85025; 99284; 99285-25

== ENCOUNTER 2020-06-02 15:15 | Emergency (ER) | payer MEDICARE, BC ==
[2020-06-02 16:59] VITALS: BP 193/92; PULSE 79
--- NOTE | 2020-06-02 18:19 | EDM.PDOC ---
ED HPI GENERAL MEDICAL PROBLEM - General Chief Complaint: Neuro Symptoms/Deficits Stated Complaint: MEDICAL VIA [facility]TH Time Seen by Provider: 06/02/20 16:15 Source of Information: Reports: Patient, Family History Limitations: Reports: No Limitations - History of Present Illness INITIAL COMMENTS - FREE TEXT/NARRATIVE: This is a 79 yo gentleman with hx of Parkinson's disease who presents with concerns of gait instability. He reports that for the last several days he has felt more unstable with his gait, particularly when he stands up out of a chair. He believes this is due to running out of his Sinemet. He denies any fevers or chills, shortness of breath, abdominal pain. He does have urinary frequency. He has no focal weakness. He does not feel presyncopal. He has not fallen or struck his head. - Related Data Allergies Allergy/AdvReac Type Severity Reaction Status Date / Time simvastatin Allergy Muscle Verified 06/02/20 15:19 Aches cats Allergy Unknown not known Uncoded 06/02/20 15:19 cow milk Allergy Unknown unknown Uncoded 06/02/20 15:19 dogs Allergy Unknown unknown Uncoded 06/02/20 15:19 environmental Allergy Unknown unknown Uncoded 06/02/20 15:19 horses Allergy Unknown unknown Uncoded 06/02/20 15:19 Home Meds: Home Meds Cyclobenzaprine [Flexeril] 10 mg PO BEDTIME PRN 05/06/14 [History] Metoprolol Succinate [Toprol XL 50mg] 25 mg PO DAILY 05/06/14 [History] Albuterol [Proair HFA] 2 inh PO Q4HR PRN 08/23/16 [History] Folic Acid 1 mg PO DAILY 08/23/16 [History] Methotrexate Sodium [Methotrexate] 7 tab PO .EVERY 7 DAYS 08/23/16 [History] Docusate Sodium [Colace] 100 - 200 mg PO DAILY PRN 08/25/16 [History] Carbidopa/Levodopa [Sinemet 25-100 mg Tablet] 1 each PO BID #14 tablet 06/02/20 [Rx] predniSONE [Prednisone] 2.5 mg PO DAILY 06/02/20 [History] Past Medical History HEENT History: Reports: Hard of Hearing, Impaired Vision Cardiovascular History: Reports: High Cholesterol, Hypertension Respiratory History: Reports: Sleep Apnea Other Respiratory History: has cpap does not use Gastrointestinal History: Reports: Chronic Constipation, Hemorrhoids, Other (See Below) Other Gastrointestinal History: "yellow jaundice" at age 3yo Genitourinary History: Reports: Urinary Incontinence Musculoskeletal History: Reports: RA Neurological History: Reports: Parkinson's Immunologic History: Reports: None Oncologic (Cancer) History: Reports: Other (See Below) Other Oncologic History: skin cancer Dermatologic History: Reports: Other (See Below) Other Dermatologic History: skin cancer - Infectious Disease History Infectious Disease History: Reports: Chicken Pox - Past Surgical History Head Surgeries/Procedures: Reports: None HEENT Surgical History: Reports: Cataract Surgery Cardiovascular Surgical History: Reports: None Respiratory Surgical History: Reports: None GI Surgical History: Reports: Colonoscopy, Hernia, Inguinal Neurological Surgical History: Reports: None Oncologic Surgical History: Reports: None Dermatological Surgical History: Reports: Skin Biopsy Social & Family History - Family History Family Medical History: Unobtainable - Tobacco Use Smoking Status *Q: Never Smoker Second Hand Smoke Exposure: No - Caffeine Use Caffeine Use: Reports: None - Recreational Drug Use Recreational Drug Use: No ED ROS GENERAL - Review of Systems Review Of Systems: See Below Constitutional: Reports: No Symptoms HEENT: Reports: No Symptoms Respiratory: Reports: No Symptoms Cardiovascular: Reports: No Symptoms Endocrine: Reports: No Symptoms GI/Abdominal: Reports: No Symptoms : Reports: No Symptoms Musculoskeletal: Reports: No Symptoms Skin: Reports: No Symptoms Neurological: Reports: Difficulty Walking Psychiatric: Reports: No Symptoms Hematologic/Lymphatic: Reports: No Symptoms Immunologic: Reports: No Symptoms ED EXAM, NEURO - Physical Exam Exam: See Below Exam Limited By: No Limitations General Appearance: Alert, No Apparent Distress Ears: Normal External Exam Nose: Normal Inspection Throat/Mouth: Normal Inspection Head Exam: Atraumatic, Normocephalic Neck: Normal Inspection Respiratory/Chest: Lungs Clear Cardiovascular: Regular Rate, Rhythm GI/Abdominal: Soft, Non-Tender Neurological: Alert, Normal Mood/Affect, No Motor/Sensory Deficits, Other (tremor) Back Exam: Normal Inspection Extremities: Normal Inspection Psychiatric: Normal Affect, Normal Mood Skin Exam: Warm, Dry Course - Vital Signs Last Recorded V/S: Last Vital Signs Temp 36.8 C 06/02/20 15:26 Pulse 79 06/02/20 16:59 Resp 24 H 06/02/20 16:07 BP 193/92 H 06/02/20 16:59 Pulse Ox 96 06/02/20 16:07 - Orders/Labs/Meds Orders: Active Orders 24 hr Category Date Time Status EKG Documentation Completion [RC] ASDIRECTED Care 06/02/20 15:27 Active EKG 12 Lead [EK] Routine Ther 06/02/20 15:26 Ordered Labs: Laboratory Tests 06/02/20 06/02/20 06/02/20 Range/Units 16:47 16:47 17:28 WBC 5.1 (4.5-11.0) K/uL RBC 4.00 L (4.30-5.90) M/uL Hgb 12.6 (12.0-15.0) g/dL Hct 38.9 L (40.0-54.0) % MCV 97 (80-98) fL MCH 32 H (27-31) pg MCHC 32 (32-36) % Plt Count 164 (150-400) K/uL Sodium 140 (140-148) mmol/L Potassium 4.0 (3.6-5.2) mmol/L Chloride 103 (100-108) mmol/L Carbon Dioxide 28 (21-32) mmol/L Anion Gap 8.8 (5.0-14.0) mmol/L BUN 15 (7-18) mg/dL Creatinine 0.9 (0.8-1.3) mg/dL Est Cr Clr Drug Dosing 66.15 mL/min Estimated GFR (MDRD) > 60 (>60) Glucose 132 H (74-106) mg/dL Calcium 8.7 (8.5-10.1) mg/dL Total Bilirubin 0.8 (0.2-1.0) mg/dL AST 22 (15-37) U/L ALT 22 (12-78) U/L Alkaline Phosphatase 89 (46-116) U/L Total Protein 6.7 (6.4-8.2) g/dL Albumin 3.3 L (3.4-5.0) g/dL Globulin 3.4 (2.3-3.5) g/dL Albumin/Globulin Ratio 1.0 L (1.2-2.2) Urine Color Yellow (YELLOW) Urine Appearance Clear (CLEAR) Urine pH 6.0 (5.0-8.0) Ur Specific [place] 1.020 (1.008-1.030) Urine Protein Negative (NEGATIVE) mg/dL Urine Glucose (UA) Negative (NEGATIVE) mg/dL Urine Ketones Negative (NEGATIVE) mg/dL Urine Occult Blood Negative (NEGATIVE) Urine Nitrite Negative (NEGATIVE) Urine Bilirubin Negative (NEGATIVE) Urine Urobilinogen 0.2 (0.2-1.0) EU/dL Ur Leukocyte Esterase Negative (NEGATIVE) Urine RBC Not seen (0-5) Urine WBC Not seen (0-5) Ur Epithelial Cells Not seen Urine Bacteria Not seen - Re-Assessments/Exams Free Text/Narrative Re-Assessment/Exam: This is a 79-year-old male who presents with concerns of worsening Parkinson symptoms. This is in the setting of being out of his Sinemet. On exam he is found to have a tremor, he is somewhat soft spoken, but can relate history and is otherwise neuro intact. Performed basic screening labs and EKG which were unremarkable. I agree is likely to have worsening gait instability and parkinsonism since he has been off of Sinemet. He believes there was some sort of mixup with his medications, so I prescribed him a short course of this until he can touch base with his PCP or neurologist. I believe he is safe for discharge and patient is agreeable with our plan. We placed a referral to his PCP for follow-up. 06/02/20 18:26 Departure - Departure Time of Disposition: 18:17 Disposition: Home, Self-Care 01 Clinical Impression: Gait instability - Discharge Information Prescriptions: Carbidopa/Levodopa [Sinemet 25-100 mg Tablet] 1 each PO BID #14 tablet Instructions: How to Use a Cane Referrals: Dewey Cardenas MD [Primary Care Provider] - Forms: ED Department Discharge Additional Instructions: We did not find any abnormalities on your work up in the ER today. Your worsening Parkinson symptoms may be why you are having trouble with your gait. We have written a script for the medication you believe you are missing (sinemet). We have placed a referral to Dr Cardenas's office, please follow up with him. Return to the ER for worsening symptoms. Thank you for allowing us to care for you today. Sepsis Event Note (ED) - Evaluation Sepsis Screening Result: No Definite Risk - Focused Exam Vital Signs: Vital Signs Temp Pulse Resp BP Pulse Ox 06/02/20 16:59 79 193/92 H 06/02/20 16:07 75 24 H 156/75 H 96 06/02/20 15:26 36.8 C 81 16 158/91 H 95 06/02/20 15:23 36.8 C 81 16 158/91 H 95 - My Orders Last 24 Hours: My Active Orders 06/02/20 15:26 EKG 12 Lead [EK] Routine 06/02/20 15:27 EKG Documentation Completion [RC] ASDIRECTED - Assessment/Plan Last 24 Hours: My Active Orders 06/02/20 15:26 EKG 12 Lead [EK] Routine 06/02/20 15:27 EKG Documentation Completion [RC] ASDIRECTED
== END 2020-06-02 18:30 | disposition home or self-care (01) ==
LOC: JP.ED 15:15
DX: R26.89 Other abnormalities of gait and mobility (principal); R25.1 Tremor, unspecified; I10 Essential (primary) hypertension; Z88.8 Allergy status to other drugs, medicaments and biological substances; Z91.09 Other allergy status, other than to drugs and biological substances; Z91.011 Allergy to milk products; Z79.899 Other long term (current) drug therapy
CPT/HCPCS: 36415; 80053; 81001; 85027; 93005; 99284-25

== ENCOUNTER 2021-03-31 15:33 | Inpatient (IN) | payer MEDICARE, BC ==
[2021-03-31] MEDS ORDERED: Sodium Chloride 0.9% 1,000 ML IV SCH (16:15)
--- NOTE | 2021-03-31 16:21 | EDM.PDOC ---
ED HPI GENERAL MEDICAL PROBLEM - General Chief Complaint: General Stated Complaint: [facility] Time Seen by Provider: 03/31/21 15:50 Source of Information: Reports: Patient History Limitations: Reports: Other (limited historian) - History of Present Illness INITIAL COMMENTS - FREE TEXT/NARRATIVE: 80 year old male presents via EMS from home where he lives with his due to generalized weakness and left groin pain. Patient reports that he has had an intermittent "rash" to his left groin fold for "a while". He reports that he was seen by his PCP and given an ointment but symptoms seemed to have gotten worse since then. He reports that today he was too weak and tired to get out of bed so he called 911. He reports normal urination. Denies fevers. Onset: Gradual Duration: Day(s):, Getting Worse Location: Reports: Other (left groin) Quality: Reports: Other (painful) Severity: Moderate Improves with: Reports: None Worsens with: Reports: Movement Associated Symptoms: Reports: No Other Symptoms Left Groin Pain Score (Numeric/FACES): 0 - Related Data Allergies Allergy/AdvReac Type Severity Reaction Status Date / Time simvastatin Allergy Muscle Verified 06/02/20 15:19 Aches [id number] Reductase Allergy Cannot Verified 03/31/21 17:28 Inhibitor Remember sulfamethoxazole Allergy Cannot Verified 03/31/21 17:28 [From Remember Sulfamethoxazole-Trimethoprim] trimethoprim Allergy Cannot Verified 03/31/21 17:28 [From Remember Sulfamethoxazole-Trimethoprim] vancomycin Allergy Hives Verified 03/31/21 20:58 cats Allergy Unknown not known Uncoded 06/02/20 15:19 cow milk Allergy Unknown unknown Uncoded 06/02/20 15:19 dogs Allergy Unknown unknown Uncoded 06/02/20 15:19 environmental Allergy Unknown unknown Uncoded 06/02/20 15:19 horses Allergy Unknown unknown Uncoded 06/02/20 15:19 Home Meds: Home Meds Cyclobenzaprine [Flexeril] 10 mg PO BEDTIME PRN 05/06/14 [History] Metoprolol Succinate [Toprol XL 50mg] 25 mg PO DAILY 05/06/14 [History] Albuterol [Proair HFA] 2 inh PO Q4HR PRN 08/23/16 [History] Folic Acid 1 mg PO DAILY 08/23/16 [History] Methotrexate Sodium [Methotrexate] 7 tab PO .EVERY 7 DAYS 08/23/16 [History] Docusate Sodium [Colace] 100 - 200 mg PO DAILY PRN 08/25/16 [History] Carbidopa/Levodopa [Sinemet 25-100 mg Tablet] 1 each PO BID #14 tablet 06/02/20 [Rx] predniSONE [Prednisone] 2.5 mg PO DAILY 06/02/20 [History] Nystatin [Nystatin Crm] 1 dose TOP ASDIRECTED 03/31/21 [History] Past Medical History HEENT History: Reports: Hard of Hearing, Impaired Vision Cardiovascular History: Reports: High Cholesterol, Hypertension Respiratory History: Reports: Sleep Apnea Other Respiratory History: has cpap does not use Gastrointestinal History: Reports: Chronic Constipation, Hemorrhoids, Other (See Below) Other Gastrointestinal History: "yellow jaundice" at age 3yo Genitourinary History: Reports: Urinary Incontinence Musculoskeletal History: Reports: RA Neurological History: Reports: Parkinson's Immunologic History: Reports: None Oncologic (Cancer) History: Reports: Other (See Below) Other Oncologic History: skin cancer Dermatologic History: Reports: Other (See Below) Other Dermatologic History: skin cancer - Infectious Disease History Infectious Disease History: Reports: Chicken Pox - Past Surgical History HEENT Surgical History: Reports: Cataract Surgery GI Surgical History: Reports: Colonoscopy, Hernia, Inguinal Dermatological Surgical History: Reports: Skin Biopsy Social & Family History - Family History Family Medical History: Unobtainable - Tobacco Use Tobacco Use Status *Q: Unknown Ever Used Tobacco - Caffeine Use Caffeine Use: Reports: None - Recreational Drug Use Recreational Drug Use: No ED ROS GENERAL - Review of Systems Review Of Systems: See Below Constitutional: Reports: Malaise, Weakness, Fatigue HEENT: Reports: No Symptoms Respiratory: Reports: No Symptoms Cardiovascular: Reports: No Symptoms Endocrine: Reports: No Symptoms GI/Abdominal: Reports: No Symptoms : Reports: Other (significant erythema and edema to left groin area, there is a break in the skin, area is moist and foul odor is present. Swelling to scrotum with erythema as well) Musculoskeletal: Reports: No Symptoms Skin: Reports: Wound (cellulitis to left groin), Other Neurological: Reports: Weakness, Other (slight confusion, unsure if this is patients baseline) Psychiatric: Reports: No Symptoms Hematologic/Lymphatic: Reports: No Symptoms Immunologic: Reports: No Symptoms ED EXAM, GENERAL - Physical Exam Exam: See Below Free Text/Narrative:: Pt is alert and active on cart, significant swelling noted to scrotum with erythema that travels to left groin fold. Area is moist and there is a foul odor present. Edema LLE>RLE and is pitting x1. Pt is generally pale, skin is dry, dry oral mucous membranes. Respirations are regular and non labored. Exam Limited By: No Limitations General Appearance: Alert Throat/Mouth: Normal Inspection (dry) Head: Atraumatic Respiratory/Chest: No Respiratory Distress Cardiovascular: Normal Peripheral Pulses (BLE edema) GI/Abdominal: Soft, Non-Tender (Male) Exam: Scrotum Tenderness (L), Other (erythema, area is moist, foul odor) Extremities: Pedal Edema Neurological: Alert, Oriented Psychiatric: Normal Affect Skin Exam: Warm, Dry, Erythema, Wound/Incision Lymphatic: No Adenopathy Course - Vital Signs Text/Narrative:: CMC, CMP, Lactic, NS bolus 1000 mL, plan for admission due to cellulitis requiring IV ABX Last Recorded V/S: Last Vital Signs Temp 37.0 C 04/01/21 03:17 Pulse 108 H 04/01/21 03:17 Resp 16 04/01/21 03:17 BP 151/88 H 04/01/21 03:17 Pulse Ox 95 04/01/21 03:17 - Orders/Labs/Meds Orders: Active Orders 24 hr Category Date Time Status CULTURE BLOOD [BC] Urgent Lab 03/31/21 18:50 Received CULTURE BLOOD [BC] Urgent Lab 03/31/21 18:54 Received Sodium Chloride 0.9% [Normal Saline] 1,000 ml Med 03/31/21 16:15 Active IV ASDIRECTED Blood Culture x2 Reflex Set [OM.PC] Urgent Oth 03/31/21 18:43 Ordered Medication Orders Acetaminophen (Acetaminophen 325 Mg Tab) 650 mg PO Q4H PRN PRN Reason: Pain (Mild 1-3)/fever Albuterol (Albuterol 0.083% 2.5 Mg/3 Ml Neb Soln) 2.5 mg NEB Q4H PRN PRN Reason: Shortness Of Breath/wheezing Albuterol/Ipratropium (Albuterol/Ipratropium 3.0-0.5 Mg/3 Ml Neb Soln) 3 ml NEB QID PRN PRN Reason: Shortness Of Breath/wheezing Carbidopa/Levodopa (Carbidopa/Levodopa 25-100 Mg Tab) 1 tab PO BID [facility] Last Admin: 03/31/21 21:13 Dose: 1 tab Documented by: EMILY Cyclobenzaprine HCl (Cyclobenzaprine 10 Mg Tab) 10 mg PO BEDTIME PRN PRN Reason: Cramping Last Admin: 03/31/21 23:01 Dose: 10 mg Documented by: EMILY Docusate Sodium (Docusate Sodium 100 Mg Cap) 200 mg PO DAILY PRN PRN Reason: Constipation Folic Acid (Folic Acid 1 Mg Tab) 1 mg PO DAILY [facility] Sodium Chloride (Normal Saline) 1,000 mls @ 500 mls/hr IV ASDIRECTED [facility] Last Admin: 03/31/21 16:50 Dose: 500 mls/hr Documented by: NINOSKA Sodium Chloride (Normal Saline) 1,000 mls @ 125 mls/hr IV ASDIRECTED [facility] Last Admin: 04/01/21 04:44 Dose: 125 mls/hr Documented by: Infusion: 04/01/21 04:44 Dose: 125 mls/hr Documented by: Admin: 03/31/21 21:26 Dose: 125 mls/hr Documented by: EMILY Insulin Human Lispro (Insulin Lispro 100 Unit/Ml 3 Ml Kwikpen) 0 unit SUBCUT QIDACANDBED [facility]; Protocol Last Admin: 03/31/21 22:53 Dose: Not Given Documented by: INA Melatonin (Melatonin 3 Mg Tab) 6 mg PO BEDTIME PRN PRN Reason: Insomnia Metoprolol Succinate (Metoprolol Succinate 25 Mg Tab.Er) 25 mg PO DAILY [facility] Morphine Sulfate (Morphine 2 Mg/Ml Syringe) 2 mg IVPUSH Q2H PRN PRN Reason: Pain (severe 7-10) Nystatin (Nystatin Topical Powder 15 Gm Bottle) 0 gm TOP TID [facility] Last Admin: 03/31/21 21:24 Dose: 1 applic Documented by: EMILY Nystatin (Nystatin Susp 100,000 Unit/Ml 5 Ml Ud Cup) 5 ml PO QID [facility] Last Admin: 04/01/21 06:50 Dose: 5 ml Documented by: Admin: 03/31/21 21:15 Dose: 5 ml Documented by: EMILY Ondansetron HCl (Ondansetron 4 Mg Tab.Dis) 4 mg PO Q6H PRN PRN Reason: Nausea able to take PO Ondansetron HCl (Ondansetron 4 Mg/2 Ml Sdv) 4 mg IV Q4H PRN PRN Reason: Nausea/Vomiting Oxycodone HCl (Oxycodone 5 Mg Tab) 5 mg PO Q4H PRN PRN Reason: Pain (moderate 4-6) Pantoprazole Sodium (Pantoprazole 40 Mg Vial) 40 mg IV BEDTIME [facility] Last Admin: 03/31/21 21:21 Dose: 40 mg Documented by: EMILY Prednisone (Prednisone 5 Mg Tab) 2.5 mg PO DAILY@0800 [facility] Labs: Laboratory Tests 03/31/21 03/31/21 03/31/21 Range/Units 16:19 16:20 16:20 WBC 4.8 (4.5-11.0) K/uL RBC 3.33 L (4.30-5.90) M/uL Hgb 11.2 L (12.0-15.0) g/dL Hct 33.1 L (40.0-54.0) % MCV 99 H (80-98) fL MCH 34 H (27-31) pg MCHC 34 (32-36) % Plt Count 94 L (150-400) K/uL Neut % (Auto) 84.1 H (36-66) % Lymph % (Auto) 11.2 L (24-44) % Cascade % (Auto) 1.0 L (2-6) % Eos % (Auto) 3.5 (2-4) % Baso % (Auto) 0.2 (0-1) % Sodium (140-148) mmol/L Potassium (3.6-5.2) mmol/L Chloride (100-108) mmol/L Carbon Dioxide (21-32) mmol/L Anion Gap (5.0-14.0) mmol/L BUN (7-18) mg/dL Creatinine (0.8-1.3) mg/dL Est Cr Clr Drug Dosing mL/min Estimated GFR (MDRD) (>60) Glucose (74-106) mg/dL Lactic Acid 0.7 (0.4-2.0) mmol/L Calcium (8.5-10.1) mg/dL Total Bilirubin (0.2-1.0) mg/dL AST (15-37) U/L ALT (12-78) U/L Alkaline Phosphatase (46-116) U/L Total Protein (6.4-8.2) g/dL Albumin (3.4-5.0) g/dL Globulin (2.3-3.5) g/dL Albumin/Globulin Ratio (1.2-2.2) Urine Color Yellow (YELLOW) Urine Appearance Clear (CLEAR) Urine pH 5.5 (5.0-8.0) Ur Specific Anderson > 1.030 (1.008-1.030) Urine Protein Trace H (NEGATIVE) mg/dL Urine Glucose (UA) Normal (NEGATIVE) mg/dL Urine Ketones Negative (NEGATIVE) mg/dL Urine Occult Blood Negative (NEGATIVE) Urine Nitrite Negative (NEGATIVE) Urine Bilirubin Small H (NEGATIVE) Urine Urobilinogen 0.2 (0.2-1.0) EU/dL Ur Leukocyte Esterase Negative (NEGATIVE) Urine RBC 0-5 (0-5) Urine WBC Not seen (0-5) Ur Epithelial Cells Not seen Amorphous Sediment Not seen Urine Bacteria Rare Urine Mucus Not seen 03/31/21 Range/Units 16:20 WBC (4.5-11.0) K/uL RBC (4.30-5.90) M/uL Hgb (12.0-15.0) g/dL Hct (40.0-54.0) % MCV (80-98) fL MCH (27-31) pg MCHC (32-36) % Plt Count (150-400) K/uL Neut % (Auto) (36-66) % Lymph % (Auto) (24-44) % Cascade % (Auto) (2-6) % Eos % (Auto) (2-4) % Baso % (Auto) (0-1) % Sodium 138 L (140-148) mmol/L Potassium 3.8 (3.6-5.2) mmol/L Chloride 102 (100-108) mmol/L Carbon Dioxide 29 (21-32) mmol/L Anion Gap 10.8 (5.0-14.0) mmol/L BUN 21 H (7-18) mg/dL Creatinine 0.7 L (0.8-1.3) mg/dL Est Cr Clr Drug Dosing 83.70 mL/min Estimated GFR (MDRD) > 60 (>60) Glucose 108 H (74-106) mg/dL Lactic Acid (0.4-2.0) mmol/L Calcium 8.0 L (8.5-10.1) mg/dL Total Bilirubin 1.3 H D (0.2-1.0) mg/dL AST 26 (15-37) U/L ALT 32 (12-78) U/L Alkaline Phosphatase 75 (46-116) U/L Total Protein 6.1 L (6.4-8.2) g/dL Albumin 3.1 L (3.4-5.0) g/dL Globulin 3.0 (2.3-3.5) g/dL Albumin/Globulin Ratio 1.0 L (1.2-2.2) Urine Color (YELLOW) Urine Appearance (CLEAR) Urine pH (5.0-8.0) Ur Specific Anderson (1.008-1.030) Urine Protein (NEGATIVE) mg/dL Urine Glucose (UA) (NEGATIVE) mg/dL Urine Ketones (NEGATIVE) mg/dL Urine Occult Blood (NEGATIVE) Urine Nitrite (NEGATIVE) Urine Bilirubin (NEGATIVE) Urine Urobilinogen (0.2-1.0) EU/dL Ur Leukocyte Esterase (NEGATIVE) Urine RBC (0-5) Urine WBC (0-5) Ur Epithelial Cells Amorphous Sediment Urine Bacteria Urine Mucus Meds: Medications Generic Name Dose Route Start Last Admin Trade Name Freq PRN Reason Stop Dose Admin Acetaminophen 650 mg 03/31/21 20:32 Acetaminophen 325 Mg Tab PO Q4H PRN Pain (Mild 1-3)/fever Albuterol 2.5 mg 03/31/21 20:32 Albuterol 0.083% 2.5 Mg/3 Ml Neb Soln NEB Q4H PRN Shortness Of Breath/wheezing Albuterol/Ipratropium 3 ml 03/31/21 20:32 Albuterol/Ipratropium 3.0-0.5 Mg/3 Ml Neb Soln NEB QID PRN Shortness Of Breath/wheezing Carbidopa/Levodopa 1 tab 03/31/21 21:00 03/31/21 21:13 Carbidopa/Levodopa 25-100 Mg Tab PO 1 tab BID [facility] Administration Cyclobenzaprine HCl 10 mg 03/31/21 20:32 03/31/21 23:01 Cyclobenzaprine 10 Mg Tab PO 10 mg BEDTIME PRN Administration Cramping Docusate Sodium 200 mg 03/31/21 22:29 Docusate Sodium 100 Mg Cap PO DAILY PRN Constipation Folic Acid 1 mg 04/01/21 09:00 Folic Acid 1 Mg Tab PO DAILY [facility] Sodium Chloride 1,000 mls @ 500 mls/hr 03/31/21 16:15 03/31/21 16:50 Normal Saline IV 500 mls/hr ASDIRECTED [facility] Administration Sodium Chloride 1,000 mls @ 125 mls/hr 03/31/21 20:32 04/01/21 04:44 Normal Saline IV 125 mls/hr ASDIRECTED [facility] Administration Insulin Human Lispro 0 unit 03/31/21 20:32 03/31/21 22:53 Insulin Lispro 100 Unit/Ml 3 Ml Kwikpen SUBCUT Not Given QIDACANDBED [facility] Protocol Melatonin 6 mg 03/31/21 20:32 Melatonin 3 Mg Tab PO BEDTIME PRN Insomnia Metoprolol Succinate 25 mg 04/01/21 09:00 Metoprolol Succinate 25 Mg Tab.Er PO DAILY [facility] Morphine Sulfate 2 mg 03/31/21 20:32 Morphine 2 Mg/Ml Syringe IVPUSH Q2H PRN Pain (severe 7-10) Nystatin 0 gm 03/31/21 21:00 03/31/21 21:24 Nystatin Topical Powder 15 Gm Bottle TOP 1 applic TID [facility] Administration Nystatin 5 ml 03/31/21 22:00 04/01/21 06:50 Nystatin Susp 100,000 Unit/Ml 5 Ml Ud Cup PO 5 ml QID [facility] Administration Ondansetron HCl 4 mg 03/31/21 20:32 Ondansetron 4 Mg Tab.Dis PO Q6H PRN Nausea able to take PO Ondansetron HCl 4 mg 03/31/21 20:32 Ondansetron 4 Mg/2 Ml Sdv IV Q4H PRN Nausea/Vomiting Oxycodone HCl 5 mg 03/31/21 20:32 Oxycodone 5 Mg Tab PO Q4H PRN Pain (moderate 4-6) Pantoprazole Sodium 40 mg 03/31/21 21:00 03/31/21 21:21 Pantoprazole 40 Mg Vial IV 40 mg BEDTIME [facility] Administration Prednisone 2.5 mg 04/01/21 08:00 Prednisone 5 Mg Tab PO DAILY@0800 [facility] Discontinued Medications Generic Name Dose Route Start Last Admin Trade Name Bandar PRN Reason Stop Dose Admin Diphenhydramine HCl 25 mg 03/31/21 20:47 03/31/21 21:18 Diphenhydramine 50 Mg/Ml Sdv IVPUSH 03/31/21 20:48 25 mg ONETIME ONE Administration Diphenhydramine HCl Confirm 03/31/21 20:49 03/31/21 21:08 Diphenhydramine 50 Mg/Ml Sdv Administered 03/31/21 20:50 Not Given Dose 50 mg .ROUTE .STK-MED ONE Docusate Sodium 100 - 200 mg 03/31/21 20:32 Docusate Sodium 100 Mg Cap PO DAILY PRN Constipation Enoxaparin Sodium 30 mg 04/01/21 09:00 Enoxaparin 30 Mg/0.3 Ml Syringe SUBCUT DAILY [facility] Fluconazole 100 mg 03/31/21 20:32 03/31/21 21:13 Fluconazole 100 Mg Tab PO 03/31/21 20:33 100 mg ONETIME ONE Administration Sodium Chloride Confirm 03/31/21 18:52 03/31/21 19:04 Normal Saline Administered 03/31/21 18:53 Not Given Dose 50 mls @ as directed .ROUTE .STK-MED ONE Vancomycin HCl 1 gm/ Sodium 250 mls @ 166.667 mls/hr 03/31/21 19:00 03/31/21 19:07 Chloride IV 03/31/21 20:29 166.667 mls/hr ONETIME ONE Administration Ketorolac Tromethamine 30 mg 03/31/21 20:32 Ketorolac 30 Mg/Ml Sdv IVPUSH Q6H PRN Pain (moderate 4-6) Methylprednisolone Sodium Succinate 62.5 mg 03/31/21 20:55 03/31/21 21:19 Methylprednisolone Sodium Succinate 125 Mg/2 Ml Sdv IVPUSH 03/31/21 20:56 62.5 mg ONETIME ONE Administration Vancomycin HCl 1 gm 03/31/21 19:00 Vancomycin 1 Gm Sdv IV .PHARMACY TO DOSE [facility] Departure - Departure Time of Disposition: 20:10 Disposition: Admitted As Inpatient 68 Condition: Good Clinical Impression: Cellulitis of groin, left, Cellulitis - Discharge Information Sepsis Event Note (ED) - Evaluation Sepsis Screening Result: No Definite Risk - My Orders Last 24 Hours: My Active Orders 03/31/21 16:15 Sodium Chloride 0.9% [Normal Saline] 1,000 ml IV ASDIRECTED - Assessment/Plan Last 24 Hours: My Active Orders 03/31/21 16:15 Sodium Chloride 0.9% [Normal Saline] 1,000 ml IV ASDIRECTED
[2021-03-31] MEDS ORDERED: Sodium Chloride 0.9% 0 ML ONE (18:52)
[2021-03-31] MEDS ORDERED: Vancomycin 1 GM SDV IV SCH (19:00)
--- NOTE | 2021-03-31 20:25 | PCM.HP.2 ---
H&P History of Present Illness - General Date of Service: 03/31/21 Admit Problem/Dx: Admission Diagnosis/Problem Admission Diagnosis/Problem Cellulitis of left groin Source of Information: Patient, EMS Notes Reviewed, Family, Provider, RN History Limitations: Reports: No Limitations - History of Present Illness Initial Comments - Free Text/Narative: chief complaint-weakness ER Report History of Present Illness 80 year old male presents via EMS from home where he lives with his due to generalized weakness and left groin pain. Patient reports that he has had an in termittent "rash" to his left groin fold for "a while". He reports that he was seen by his PCP and given an ointment but symptoms seemed to have gotten worse since then. He reports that today he was too weak and tired to get out of bed so he called 911. He reports normal urination. Denies fevers. Onset: Gradual Onset of Symptoms: Reports: Gradual Duration of Symptoms: Reports: Day(s):, Getting Worse Location: Reports: Other (left groin and scrotum) Quality: Reports: Ache, Burning Severity: Severe Improves with: Reports: None Worsens with: Reports: None Context: Reports: Other (rash to the groin for months, now worse the past few days) Associated Symptoms: Reports: Malaise, Weakness Left Groin Pain Score (Numeric/FACES): 10 - Related Data Allergies/Adverse Reactions: Allergies Allergy/AdvReac Type Severity Reaction Status Date / Time simvastatin Allergy Muscle Verified 06/02/20 15:19 Aches Dunwkua-Rtd-Das Reductase Allergy Cannot Verified 03/31/21 17:28 Inhibitor Remember sulfamethoxazole Allergy Cannot Verified 03/31/21 17:28 [From Remember Sulfamethoxazole-Trimethoprim] trimethoprim Allergy Cannot Verified 03/31/21 17:28 [From Remember Sulfamethoxazole-Trimethoprim] vancomycin Allergy Hives Verified 03/31/21 20:58 cats Allergy Unknown not known Uncoded 06/02/20 15:19 cow milk Allergy Unknown unknown Uncoded 06/02/20 15:19 dogs Allergy Unknown unknown Uncoded 06/02/20 15:19 environmental Allergy Unknown unknown Uncoded 06/02/20 15:19 horses Allergy Unknown unknown Uncoded 06/02/20 15:19 Home Medications: Home Meds Cyclobenzaprine [Flexeril] 10 mg PO BEDTIME PRN 05/06/14 [History] Metoprolol Succinate [Toprol XL 50mg] 25 mg PO DAILY 05/06/14 [History] Albuterol [Proair HFA] 2 inh PO Q4HR PRN 08/23/16 [History] Folic Acid 1 mg PO DAILY 08/23/16 [History] Methotrexate Sodium [Methotrexate] 7 tab PO .EVERY 7 DAYS 08/23/16 [History] Docusate Sodium [Colace] 100 - 200 mg PO DAILY PRN 08/25/16 [History] Carbidopa/Levodopa [Sinemet 25-100 mg Tablet] 1 each PO BID #14 tablet 06/02/20 [Rx] predniSONE [Prednisone] 2.5 mg PO DAILY 06/02/20 [History] Nystatin [Nystatin Crm] 1 dose TOP ASDIRECTED 03/31/21 [History] Past Medical History HEENT History: Reports: Hard of Hearing, Impaired Vision Cardiovascular History: Reports: High Cholesterol, Hypertension Respiratory History: Reports: Sleep Apnea Other Respiratory History: has cpap does not use Gastrointestinal History: Reports: Chronic Constipation, Hemorrhoids, Other (See Below) Other Gastrointestinal History: "yellow jaundice" at age 3yo Genitourinary History: Reports: Urinary Incontinence Musculoskeletal History: Reports: RA Neurological History: Reports: Parkinson's Immunologic History: Reports: None Oncologic (Cancer) History: Reports: Other (See Below) Other Oncologic History: skin cancer Dermatologic History: Reports: Other (See Below) Other Dermatologic History: skin cancer - Infectious Disease History Infectious Disease History: Reports: Chicken Pox - Past Surgical History HEENT Surgical History: Reports: Cataract Surgery GI Surgical History: Reports: Colonoscopy, Hernia, Inguinal Dermatological Surgical History: Reports: Skin Biopsy Social & Family History - Family History Family Medical History: Unobtainable - Tobacco Use Tobacco Use Status *Q: Unknown Ever Used Tobacco - Caffeine Use Caffeine Use: Reports: None - Recreational Drug Use Recreational Drug Use: No - Living Situation & Occupation Living situation: Reports: with Significant Other, with Family (lives at home with family) Occupation: Retired (lives with [employer] and has adult Step-children. No children of his own.) H&P Review of Systems - Review of Systems: Review Of Systems: See Below General: Reports: Malaise, Weakness, Fatigue, Other (pleasant alert frail elderly Male. ) HEENT: Reports: Glasses Pulmonary: Reports: No Symptoms Cardiovascular: Reports: Chest Pain (for 2 years - reports unchanged. no concerns) Gastrointestinal: Reports: Decreased Appetite Genitourinary: Reports: No Symptoms Musculoskeletal: Reports: Other (rheumatoid arthritis) Skin: Reports: Rash, Erythema, Wound, Other (drainage, odor, open lesions noted to the left groin fold extends to scrotum) Psychiatric: Reports: No Symptoms Neurological: Reports: Pre-Existing Deficit (advanced Parkinson disease), Tremors (Parkinson Disease) Hematologic/Lymphatic: Reports: No Symptoms Immunologic: Reports: No Symptoms Exam - Exam Exam: See Below - Vital Signs Vital Signs: Last Vital Signs Temp 97.7 F 03/31/21 15:47 Pulse 79 03/31/21 19:37 Resp 16 03/31/21 15:47 BP 150/54 H 03/31/21 19:37 Pulse Ox 98 03/31/21 19:37 Weight: 150 lb - Exam Quality Assessment: DVT Prophylaxis, Skin Breakdown General: Alert, Oriented, Cooperative, Mild Distress HEENT: PERRLA, Conjunctiva Clear, EACs Clear, EOMI, Hearing Intact, Mucosa Moist & [place], Nares Patent, Normal Nasal Septum, Posterior Pharynx Clear, TMs Clear, Glasses Neck: Trachea Midline, Other (limited range of motion due to rheumatoid arthritis) Lungs: Clear to Auscultation, Normal Respiratory Effort, Decreased Breath Sounds Cardiovascular: Regular Rate, Regular Rhythm, Normal S1, Normal S2 GI/Abdominal Exam: Normal Bowel Sounds, Soft, Non-Tender, No Organomegaly, No Distention, Pelvis Stable (Male) Exam: No Hernia, Circumcised, Rash (groin- open lesions, odor, drainage), Scrotal Swelling (left scrotal swelling chronic - increased in size past two days.), Scrotum Tenderness (L) Rectal (Males) Exam: Deferred Back Exam: Normal Inspection Extremities: No Pedal Edema, Limited Range of Motion (due to Parkinson and Rheumatoid Arthritis), Other (enlarged joint of ankles and knees due to arthritis) Skin: Warm, Moist (left groin), Rash (open lesion, foul odor), Wound (left groin with open lesions) Neurological: Strength Equal Bilateral, Normal Speech, Normal Tone Neuro Extensive - Mental Status: Alert, Oriented x3, Normal Mood/Affect, Normal Cognition Neuro Extensive - Motor, Sensory, Reflexes: Motor/Sensory Deficits (advanced Parkinson Disease- frail with tremor of hands) Psychiatric: Alert, Normal Affect, Normal Mood - Patient Data Lab Results Last 24 hrs: Laboratory Results - last 24 hr 03/31/21 03/31/21 03/31/21 Range/Units 16:19 16:20 16:20 WBC 4.8 (4.5-11.0) K/uL RBC 3.33 L (4.30-5.90) M/uL Hgb 11.2 L (12.0-15.0) g/dL Hct 33.1 L (40.0-54.0) % MCV 99 H (80-98) fL MCH 34 H (27-31) pg MCHC 34 (32-36) % Plt Count 94 L (150-400) K/uL Neut % (Auto) 84.1 H (36-66) % Lymph % (Auto) 11.2 L (24-44) % [place] % (Auto) 1.0 L (2-6) % Eos % (Auto) 3.5 (2-4) % Baso % (Auto) 0.2 (0-1) % Sodium (140-148) mmol/L Potassium (3.6-5.2) mmol/L Chloride (100-108) mmol/L Carbon Dioxide (21-32) mmol/L Anion Gap (5.0-14.0) mmol/L BUN (7-18) mg/dL Creatinine (0.8-1.3) mg/dL Est Cr Clr Drug Dosing mL/min Estimated GFR (MDRD) (>60) Glucose (74-106) mg/dL Lactic Acid 0.7 (0.4-2.0) mmol/L Calcium (8.5-10.1) mg/dL Total Bilirubin (0.2-1.0) mg/dL AST (15-37) U/L ALT (12-78) U/L Alkaline Phosphatase (46-116) U/L Total Protein (6.4-8.2) g/dL Albumin (3.4-5.0) g/dL Globulin (2.3-3.5) g/dL Albumin/Globulin Ratio (1.2-2.2) Urine Color Yellow (YELLOW) Urine Appearance Clear (CLEAR) Urine pH 5.5 (5.0-8.0) Ur Specific [place] > 1.030 (1.008-1.030) Urine Protein Trace H (NEGATIVE) mg/dL Urine Glucose (UA) Normal (NEGATIVE) mg/dL Urine Ketones Negative (NEGATIVE) mg/dL Urine Occult Blood Negative (NEGATIVE) Urine Nitrite Negative (NEGATIVE) Urine Bilirubin Small H (NEGATIVE) Urine Urobilinogen 0.2 (0.2-1.0) EU/dL Ur Leukocyte Esterase Negative (NEGATIVE) Urine RBC 0-5 (0-5) Urine WBC Not seen (0-5) Ur Epithelial Cells Not seen Amorphous Sediment Not seen Urine Bacteria Rare Urine Mucus Not seen 03/31/21 Range/Units 16:20 WBC (4.5-11.0) K/uL RBC (4.30-5.90) M/uL Hgb (12.0-15.0) g/dL Hct (40.0-54.0) % MCV (80-98) fL MCH (27-31) pg MCHC (32-36) % Plt Count (150-400) K/uL Neut % (Auto) (36-66) % Lymph % (Auto) (24-44) % [place] % (Auto) (2-6) % Eos % (Auto) (2-4) % Baso % (Auto) (0-1) % Sodium 138 L (140-148) mmol/L Potassium 3.8 (3.6-5.2) mmol/L Chloride 102 (100-108) mmol/L Carbon Dioxide 29 (21-32) mmol/L Anion Gap 10.8 (5.0-14.0) mmol/L BUN 21 H (7-18) mg/dL Creatinine 0.7 L (0.8-1.3) mg/dL Est Cr Clr Drug Dosing 83.70 mL/min Estimated GFR (MDRD) > 60 (>60) Glucose 108 H (74-106) mg/dL Lactic Acid (0.4-2.0) mmol/L Calcium 8.0 L (8.5-10.1) mg/dL Total Bilirubin 1.3 H D (0.2-1.0) mg/dL AST 26 (15-37) U/L ALT 32 (12-78) U/L Alkaline Phosphatase 75 (46-116) U/L Total Protein 6.1 L (6.4-8.2) g/dL Albumin 3.1 L (3.4-5.0) g/dL Globulin 3.0 (2.3-3.5) g/dL Albumin/Globulin Ratio 1.0 L (1.2-2.2) Urine Color (YELLOW) Urine Appearance (CLEAR) Urine pH (5.0-8.0) Ur Specific [place] (1.008-1.030) Urine Protein (NEGATIVE) mg/dL Urine Glucose (UA) (NEGATIVE) mg/dL Urine Ketones (NEGATIVE) mg/dL Urine Occult Blood (NEGATIVE) Urine Nitrite (NEGATIVE) Urine Bilirubin (NEGATIVE) Urine Urobilinogen (0.2-1.0) EU/dL Ur Leukocyte Esterase (NEGATIVE) Urine RBC (0-5) Urine WBC (0-5) Ur Epithelial Cells Amorphous Sediment Urine Bacteria Urine Mucus Result Diagrams: 03/31/21 16:20 03/31/21 16:20 Sepsis Event Note - Evaluation Sepsis Screening Result: No Definite Risk - Focused Exam Vital Signs: Vital Signs Temp Pulse Resp BP Pulse Ox 03/31/21 19:37 79 150/54 H 98 03/31/21 19:04 72 149/68 H 95 03/31/21 18:01 79 162/76 H 95 03/31/21 17:06 73 153/78 H 97 03/31/21 15:47 97.7 F 87 16 152/82 H 97 03/31/21 15:38 97.7 F 87 16 152/82 H 97 - Problem List (1) Cellulitis of groin, left SNOMED Code(s): 77904998 ICD Code: L03.314 - CELLULITIS OF GROIN Status: Acute Priority: High Current Visit: Yes (2) Parkinson disease SNOMED Code(s): 86652414 ICD Code: G20 - PARKINSON'S DISEASE Status: Acute Priority: High Current Visit: Yes (3) Diabetes type 2, controlled SNOMED Code(s): 72846404, 936108678 ICD Code: E11.9 - TYPE 2 DIABETES MELLITUS WITHOUT COMPLICATIONS Status: Acute Priority: Low Current Visit: Yes Qualifiers: Diabetes mellitus prison insulin use: without prison use Diabetes mellitus complication status: without complication Qualified Code(s): E11.9 - Type 2 diabetes mellitus without complications Problem List Initiated/Reviewed/Updated: Yes Orders Last 24hrs: Active Orders 24 hr Category Date Time Status Patient Status Manage Transfer [TRANSFER] Routine ADT 03/31/21 19:02 Active CULTURE BLOOD [BC] Urgent Lab 03/31/21 18:50 Received CULTURE BLOOD [BC] Urgent Lab 03/31/21 18:54 Received Sodium Chloride 0.9% [Normal Saline] 1,000 ml Med 03/31/21 16:15 Active IV ASDIRECTED Vancomycin Med 03/31/21 19:00 Active 1 gm IV .PHARMACY TO DOSE Vancomycin 1 gm Med 03/31/21 19:00 Active Sodium Chloride 0.9% [Normal Saline] 250 ml IV ONETIME Blood Culture x2 Reflex Set [OM.PC] Urgent Oth 03/31/21 18:43 Ordered Resuscitation Status Routine Resus Stat 03/31/21 19:07 Ordered Medication Orders Sodium Chloride (Normal Saline) 1,000 mls @ 500 mls/hr IV ASDIRECTED [facility] Last Admin: 03/31/21 16:50 Dose: 500 mls/hr Documented by: NINOSKA Vancomycin HCl 1 gm/ Sodium (Chloride) 250 mls @ 166.667 mls/hr IV ONETIME ONE Stop: 03/31/21 20:29 Last Admin: 03/31/21 19:07 Dose: 166.667 mls/hr Documented by: WILL Vancomycin HCl (Vancomycin 1 Gm Sdv) 1 gm IV .PHARMACY TO DOSE [facility] Assessment/Plan Comment:: Assessment/Plan Comment:: ASSESSMENT AND PLAN CELLULITIS LEFT GROIN-area of cellulitis and abscess involving the left groin extends to left scrotum. He is failed outpatient management with topical antibiotic therapy. -IV Normal Saline 125 ml/hr for rehydration -Pain medication as needed -IV antibiotic therapy; vancomycin 1 gram every 12 hours -Diflucan 100 mg daily -Consult Wound -am labs CBC, BMP DIABETES MELLITUS- reports diet controlled, last HgbA1c 5.7 -4 times daily glucometers -Low-dose sliding scale Humalog Parkinson's Disease -continue outpatient medications MAINTENANCE ISSUES -DVT prophylaxis; SCDs -GI prophylaxis - IV Protonix 40 mg daily -Galindo catheter; not indicated -Nutrition- regular diet -consult to Wound CODE STATUS-DNR/DNI ADMISSION STATUS-patient will be admitted to inpatient status, expect at least a 2 night hospital stay for evaluation and management of problems as outlined above. At the time of this admission I do not reasonably expected evaluation and management of this problem will require more than a 96 hour hospital stay. DISPOSITION-anticipate discharge to home after the hospital stay. PRIMARY CARE PROVIDER-Dr. Cardenas HOSPITALIST - Dr. Kelly Bran - Mortality Measure Good - Mortality Measure Prognosis:: Good
[2021-03-31] MEDS ORDERED: Fluconazole 100 MG Tab PO ONE (20:32)
[2021-03-31] MEDS ORDERED: Docusate Sodium 100 MG Cap PO PRN ×2 (20:32→22:29)
[2021-03-31] MEDS ORDERED: Albuterol 0.083% 2.5 MG/3 ML Neb Soln NEB PRN (20:32)
[2021-03-31] MEDS ORDERED: Acetaminophen 325 MG Tab PO PRN (20:32)
[2021-03-31] MEDS ORDERED: Ondansetron 4 MG/2 ML SDV IV PRN (20:32)
[2021-03-31] MEDS ORDERED: Cyclobenzaprine 10 MG Tab PO PRN (20:32)
[2021-03-31] MEDS ORDERED: Albuterol/Ipratropium 3.0-0.5 MG/3 ML Neb Soln NEB PRN (20:32)
[2021-03-31] MEDS ORDERED: Ketorolac 30 MG/ML SDV IVPUSH PRN (20:32)
[2021-03-31] MEDS ORDERED: oxyCODONE 5 MG Tab PO PRN (20:32)
[2021-03-31] MEDS ORDERED: Morphine 2 MG/ML SYRINGE IVPUSH PRN (20:32)
[2021-03-31] MEDS ORDERED: Melatonin 3 MG Tab PO PRN (20:32)
[2021-03-31] MEDS ORDERED: Ondansetron 4 MG Tab.DIS PO PRN (20:32)
[2021-03-31] MEDS ORDERED: diphenhydrAMINE 50 MG/ML SDV IVPUSH ONE (20:47)
[2021-03-31] MEDS ORDERED: diphenhydrAMINE 50 MG/ML SDV ONE (20:49)
[2021-03-31] MEDS ORDERED: methylPREDNISolone Sodium Succinate 125 MG/2 ML SDV IVPUSH ONE (20:55)
[2021-03-31] MEDS ORDERED: Pantoprazole 40 MG Vial IV SCH (21:00)
[2021-03-31] MEDS: Carbidopa/Levodopa 25-100 MG Tab PO SCH (21:13)
[2021-03-31] MEDS: Nystatin Susp 100,000 Unit/ML 5 ML UD Cup PO SCH (21:15)
[2021-03-31] MEDS: Nystatin Topical Powder 15 GM Bottle TOP SCH (21:24)
[2021-03-31] MEDS: Sodium Chloride 0.9% 1,000 ML IV SCH (21:26)
--- NOTE | 2021-03-31 22:47 | PCM.SN.2 ---
- Free Text/Narrative Note: time 2044 call from [address] [place] [address]- Mr. Wilcox finished IV Vancomycin now with hives. S: denies any chest pain, shortness of breath, urticaria or any symptoms. or tongue or throat discomfort reports feeling fine. O: chest - lungs clear to bases, heart rate 70's B/P 150/ 54, normal respiratory effort skin - large circular raise red areas note to scalp, face, neck and upper chest A: Allergic Reaction to Vancomycin P: IV Benadryl 25 mg, IV Solu-medrol 62.5 mg once. monitor for any further symptoms.
[2021-03-31] MEDS: Insulin Lispro 100 Unit/ML 3 ML KwikPen SUBCUT SCH (22:53)
[2021-04-01] MEDS: Sodium Chloride 0.9% 1,000 ML IV SCH (04:44)
[2021-04-01] MEDS: Nystatin Susp 100,000 Unit/ML 5 ML UD Cup PO SCH ×4 (06:50→21:12)
[2021-04-01] MEDS: Nystatin Topical Powder 15 GM Bottle TOP SCH ×3 (08:11→21:13)
[2021-04-01] MEDS: Insulin Lispro 100 Unit/ML 3 ML KwikPen SUBCUT SCH ×4 (08:17→21:27)
[2021-04-01] MEDS ORDERED: Enoxaparin 30 MG/0.3 ML Syringe SUBCUT SCH (09:00)
[2021-04-01] MEDS: Carbidopa/Levodopa 25-100 MG Tab PO SCH ×2 (10:56→21:12)
[2021-04-01] MEDS: predniSONE 5 MG Tab PO SCH (10:56)
[2021-04-01] MEDS: Folic Acid 1 MG Tab PO SCH (10:56)
[2021-04-01] MEDS: Metoprolol Succinate 25 MG Tab.ER PO SCH (10:57)
--- NOTE | 2021-04-01 15:32 | US ---
Scrotum and Contents CLINICAL HISTORY: Scrotal swelling FINDINGS: The right testicle is not definable. There is soft tissue density occupying the right scrotal sac. It is heterogeneous. No definite testicular margin is identified. This does not appear to extend into the inguinal canal. The right epididymis is not discernible. The left testicle measures left testicle measures 3.3 x 3.7 x 2.1 cm cm. The left epididymis is slightly prominent at 1.7 cm. There is mildly heterogeneous. No increased flow is identified. There is the rete testis. There is a small hydrocele. There are some small varicosities. There is normal left testicular flow. IMPRESSION: Heterogeneous soft tissue occupying the right scrotum without definable right testicle. This may represent a large testicular or extratesticular mass. Other soft tissue mass is not excluded. There is no abscess formation Generalized scrotal thickening Rete testis on the left on the left with no mass. Small hydrocele and small left varicocele
--- NOTE | 2021-04-01 15:59 | PCM.PN ---
- General Info Date of Service: 04/01/21 Admission Dx/Problem (Free Text): Erysipelas versus intertrigo of the left groin and left axilla Subjective Update: Mr. Wilcox became confused today before I was able to see him. He was able to answer questions with words however the answers did not pertain to the question or did not make sense. He is lethargic. There is a well demarcated beefy red lesion of the left groin crease extending from the anterior to posterior and into the buttock crease. There is also a small proximately 2 inch area of beefy red lesion in the right groin crease. There is also a small approximately 1 inch lesion in the right axilla. His scrotum is enlarged with an erythematous coloration and does not appear edematous. The skin of the scrotum is intact. He does not show signs of edema of the ankles or anywhere else on the body. His daughter has stated that the scrotum has been enlarging for some time. He states that she did bring this up to his primary care physician but they have done nothing about it. She would like it looked into. Functional Status: Reports: Ambulating, Urinating, Other (New onset confusion with lethargy) - Review of Systems Systems Review Comment:: Review of systems unable to obtain due to patient's confusion - Patient Data Vitals - Most Recent: Last Vital Signs Temp 96.7 F L 04/01/21 11:41 Pulse 73 04/01/21 11:41 Resp 16 04/01/21 11:41 BP 128/97 H 04/01/21 11:41 Pulse Ox 95 04/01/21 11:41 Weight - Most Recent: 142 lb I&O - Last 24 Hours: Intake & Output 04/01/21 04/01/21 04/01/21 06:59 14:59 22:59 Intake Total 1318 560 Output Total 975 200 Balance 343 360 Lab Results Last 24 Hours: Laboratory Results - last 24 hr 03/31/21 03/31/21 03/31/21 Range/Units 16:19 16:20 16:20 WBC 4.8 (4.5-11.0) K/uL RBC 3.33 L (4.30-5.90) M/uL Hgb 11.2 L (12.0-15.0) g/dL Hct 33.1 L (40.0-54.0) % MCV 99 H (80-98) fL MCH 34 H (27-31) pg MCHC 34 (32-36) % Plt Count 94 L (150-400) K/uL Neut % (Auto) 84.1 H (36-66) % Lymph % (Auto) 11.2 L (24-44) % [place] % (Auto) 1.0 L (2-6) % Eos % (Auto) 3.5 (2-4) % Baso % (Auto) 0.2 (0-1) % Sodium (140-148) mmol/L Potassium (3.6-5.2) mmol/L Chloride (100-108) mmol/L Carbon Dioxide (21-32) mmol/L Anion Gap (5.0-14.0) mmol/L BUN (7-18) mg/dL Creatinine (0.8-1.3) mg/dL Est Cr Clr Drug Dosing mL/min Estimated GFR (MDRD) (>60) Glucose (74-106) mg/dL POC Glucose (74-106) mg/dL Lactic Acid 0.7 (0.4-2.0) mmol/L Calcium (8.5-10.1) mg/dL Total Bilirubin (0.2-1.0) mg/dL AST (15-37) U/L ALT (12-78) U/L Alkaline Phosphatase (46-116) U/L Total Protein (6.4-8.2) g/dL Albumin (3.4-5.0) g/dL Globulin (2.3-3.5) g/dL Albumin/Globulin Ratio (1.2-2.2) Urine Color Yellow (YELLOW) Urine Appearance Clear (CLEAR) Urine pH 5.5 (5.0-8.0) Ur Specific [place] > 1.030 (1.008-1.030) Urine Protein Trace H (NEGATIVE) mg/dL Urine Glucose (UA) Normal (NEGATIVE) mg/dL Urine Ketones Negative (NEGATIVE) mg/dL Urine Occult Blood Negative (NEGATIVE) Urine Nitrite Negative (NEGATIVE) Urine Bilirubin Small H (NEGATIVE) Urine Urobilinogen 0.2 (0.2-1.0) EU/dL Ur Leukocyte Esterase Negative (NEGATIVE) Urine RBC 0-5 (0-5) Urine WBC Not seen (0-5) Ur Epithelial Cells Not seen Amorphous Sediment Not seen Urine Bacteria Rare Urine Mucus Not seen 03/31/21 03/31/21 03/31/21 Range/Units 16:20 20:58 22:42 WBC (4.5-11.0) K/uL RBC (4.30-5.90) M/uL Hgb (12.0-15.0) g/dL Hct (40.0-54.0) % MCV (80-98) fL MCH (27-31) pg MCHC (32-36) % Plt Count (150-400) K/uL Neut % (Auto) (36-66) % Lymph % (Auto) (24-44) % [place] % (Auto) (2-6) % Eos % (Auto) (2-4) % Baso % (Auto) (0-1) % Sodium 138 L (140-148) mmol/L Potassium 3.8 (3.6-5.2) mmol/L Chloride 102 (100-108) mmol/L Carbon Dioxide 29 (21-32) mmol/L Anion Gap 10.8 (5.0-14.0) mmol/L BUN 21 H (7-18) mg/dL Creatinine 0.7 L (0.8-1.3) mg/dL Est Cr Clr Drug Dosing 83.70 mL/min Estimated GFR (MDRD) > 60 (>60) Glucose 108 H (74-106) mg/dL POC Glucose 94 145 H (74-106) mg/dL Lactic Acid (0.4-2.0) mmol/L Calcium 8.0 L (8.5-10.1) mg/dL Total Bilirubin 1.3 H D (0.2-1.0) mg/dL AST 26 (15-37) U/L ALT 32 (12-78) U/L Alkaline Phosphatase 75 (46-116) U/L Total Protein 6.1 L (6.4-8.2) g/dL Albumin 3.1 L (3.4-5.0) g/dL Globulin 3.0 (2.3-3.5) g/dL Albumin/Globulin Ratio 1.0 L (1.2-2.2) Urine Color (YELLOW) Urine Appearance (CLEAR) Urine pH (5.0-8.0) Ur Specific [place] (1.008-1.030) Urine Protein (NEGATIVE) mg/dL Urine Glucose (UA) (NEGATIVE) mg/dL Urine Ketones (NEGATIVE) mg/dL Urine Occult Blood (NEGATIVE) Urine Nitrite (NEGATIVE) Urine Bilirubin (NEGATIVE) Urine Urobilinogen (0.2-1.0) EU/dL Ur Leukocyte Esterase (NEGATIVE) Urine RBC (0-5) Urine WBC (0-5) Ur Epithelial Cells Amorphous Sediment Urine Bacteria Urine Mucus 04/01/21 04/01/21 04/01/21 Range/Units 05:50 05:50 07:27 WBC 3.3 L (4.5-11.0) K/uL RBC 3.18 L (4.30-5.90) M/uL Hgb 10.4 L (12.0-15.0) g/dL Hct 31.4 L (40.0-54.0) % MCV 99 H (80-98) fL MCH 33 H (27-31) pg MCHC 33 (32-36) % Plt Count 75 L (150-400) K/uL Neut % (Auto) 91.9 H (36-66) % Lymph % (Auto) 8.1 L (24-44) % [place] % (Auto) 0.0 L (2-6) % Eos % (Auto) 0.0 L (2-4) % Baso % (Auto) 0.0 (0-1) % Sodium 140 (140-148) mmol/L Potassium 3.8 (3.6-5.2) mmol/L Chloride 106 (100-108) mmol/L Carbon Dioxide 28 (21-32) mmol/L Anion Gap 6.4 (5.0-14.0) mmol/L BUN 16 (7-18) mg/dL Creatinine 0.8 (0.8-1.3) mg/dL Est Cr Clr Drug Dosing 69.75 mL/min Estimated GFR (MDRD) > 60 (>60) Glucose 177 H (74-106) mg/dL POC Glucose 162 H (74-106) mg/dL Lactic Acid (0.4-2.0) mmol/L Calcium 7.7 L (8.5-10.1) mg/dL Total Bilirubin (0.2-1.0) mg/dL AST (15-37) U/L ALT (12-78) U/L Alkaline Phosphatase (46-116) U/L Total Protein (6.4-8.2) g/dL Albumin (3.4-5.0) g/dL Globulin (2.3-3.5) g/dL Albumin/Globulin Ratio (1.2-2.2) Urine Color (YELLOW) Urine Appearance (CLEAR) Urine pH (5.0-8.0) Ur Specific [place] (1.008-1.030) Urine Protein (NEGATIVE) mg/dL Urine Glucose (UA) (NEGATIVE) mg/dL Urine Ketones (NEGATIVE) mg/dL Urine Occult Blood (NEGATIVE) Urine Nitrite (NEGATIVE) Urine Bilirubin (NEGATIVE) Urine Urobilinogen (0.2-1.0) EU/dL Ur Leukocyte Esterase (NEGATIVE) Urine RBC (0-5) Urine WBC (0-5) Ur Epithelial Cells Amorphous Sediment Urine Bacteria Urine Mucus 04/01/21 Range/Units 11:29 WBC (4.5-11.0) K/uL RBC (4.30-5.90) M/uL Hgb (12.0-15.0) g/dL Hct (40.0-54.0) % MCV (80-98) fL MCH (27-31) pg MCHC (32-36) % Plt Count (150-400) K/uL Neut % (Auto) (36-66) % Lymph % (Auto) (24-44) % [place] % (Auto) (2-6) % Eos % (Auto) (2-4) % Baso % (Auto) (0-1) % Sodium (140-148) mmol/L Potassium (3.6-5.2) mmol/L Chloride (100-108) mmol/L Carbon Dioxide (21-32) mmol/L Anion Gap (5.0-14.0) mmol/L BUN (7-18) mg/dL Creatinine (0.8-1.3) mg/dL Est Cr Clr Drug Dosing mL/min Estimated GFR (MDRD) (>60) Glucose (74-106) mg/dL POC Glucose 238 H (74-106) mg/dL Lactic Acid (0.4-2.0) mmol/L Calcium (8.5-10.1) mg/dL Total Bilirubin (0.2-1.0) mg/dL AST (15-37) U/L ALT (12-78) U/L Alkaline Phosphatase (46-116) U/L Total Protein (6.4-8.2) g/dL Albumin (3.4-5.0) g/dL Globulin (2.3-3.5) g/dL Albumin/Globulin Ratio (1.2-2.2) Urine Color (YELLOW) Urine Appearance (CLEAR) Urine pH (5.0-8.0) Ur Specific [place] (1.008-1.030) Urine Protein (NEGATIVE) mg/dL Urine Glucose (UA) (NEGATIVE) mg/dL Urine Ketones (NEGATIVE) mg/dL Urine Occult Blood (NEGATIVE) Urine Nitrite (NEGATIVE) Urine Bilirubin (NEGATIVE) Urine Urobilinogen (0.2-1.0) EU/dL Ur Leukocyte Esterase (NEGATIVE) Urine RBC (0-5) Urine WBC (0-5) Ur Epithelial Cells Amorphous Sediment Urine Bacteria Urine Mucus Bran Results Last 24 Hours: Microbiology 03/31/21 22:53 Gram Stain - Final Groin, Left Med Orders - Current: Current Medications Acetaminophen (Acetaminophen 325 Mg Tab) 650 mg PO Q4H PRN PRN Reason: Pain (Mild 1-3)/fever Albuterol (Albuterol 0.083% 2.5 Mg/3 Ml Neb Soln) 2.5 mg NEB Q4H PRN PRN Reason: Shortness Of Breath/wheezing Albuterol/Ipratropium (Albuterol/Ipratropium 3.0-0.5 Mg/3 Ml Neb Soln) 3 ml NEB QID PRN PRN Reason: Shortness Of Breath/wheezing Carbidopa/Levodopa (Carbidopa/Levodopa 25-100 Mg Tab) 1 tab PO BID [facility] [place] Last Admin: 04/01/21 10:56 Dose: 1 tab Documented by: Cyclobenzaprine HCl (Cyclobenzaprine 10 Mg Tab) 10 mg PO BEDTIME PRN PRN Reason: Cramping Last Admin: 03/31/21 23:01 Dose: 10 mg Documented by: Docusate Sodium (Docusate Sodium 100 Mg Cap) 200 mg PO DAILY PRN PRN Reason: Constipation Folic Acid (Folic Acid 1 Mg Tab) 1 mg PO DAILY [facility] [place] Last Admin: 04/01/21 10:56 Dose: 1 mg Documented by: Sodium Chloride (Normal Saline) 1,000 mls @ 125 mls/hr IV ASDIRECTED [facility] [place] Last Admin: 04/01/21 04:44 Dose: 125 mls/hr Documented by: Fluconazole/Sodium Chloride (100 mg/ Premix) 50 mls @ 100 mls/hr IV Q24H [facility] [place] Ceftriaxone Sodium 2 gm/ (Sodium Chloride) 50 mls @ 100 mls/hr IV Q24H [facility] [place] Insulin Human Lispro (Insulin Lispro 100 Unit/Ml 3 Ml Kwikpen) 0 unit SUBCUT QIDACANDBED [facility] [place]; Protocol Last Admin: 04/01/21 14:21 Dose: 2 units Documented by: Melatonin (Melatonin 3 Mg Tab) 6 mg PO BEDTIME PRN PRN Reason: Insomnia Metoprolol Succinate (Metoprolol Succinate 25 Mg Tab.Er) 25 mg PO DAILY [facility] [place] Last Admin: 04/01/21 10:57 Dose: 25 mg Documented by: Morphine Sulfate (Morphine 2 Mg/Ml Syringe) 2 mg IVPUSH Q2H PRN PRN Reason: Pain (severe 7-10) Nystatin (Nystatin Topical Powder 15 Gm Bottle) 0 gm TOP TID [facility] [place] Last Admin: 04/01/21 14:16 Dose: 1 applic Documented by: Nystatin (Nystatin Susp 100,000 Unit/Ml 5 Ml Ud Cup) 5 ml PO QID [facility] [place] Last Admin: 04/01/21 10:57 Dose: 5 ml Documented by: Ondansetron HCl (Ondansetron 4 Mg Tab.Dis) 4 mg PO Q6H PRN PRN Reason: Nausea able to take PO Ondansetron HCl (Ondansetron 4 Mg/2 Ml Sdv) 4 mg IV Q4H PRN PRN Reason: Nausea/Vomiting Oxycodone HCl (Oxycodone 5 Mg Tab) 5 mg PO Q4H PRN PRN Reason: Pain (moderate 4-6) Pantoprazole Sodium (Pantoprazole 40 Mg Tab.Cr) 40 mg PO BEDTIME [facility] [place] Prednisone (Prednisone 5 Mg Tab) 2.5 mg PO DAILY@0800 [facility] [place] Last Admin: 04/01/21 10:56 Dose: 2.5 mg Documented by: Discontinued Medications Diphenhydramine HCl (Diphenhydramine 50 Mg/Ml Sdv) 25 mg IVPUSH ONETIME ONE Stop: 03/31/21 20:48 Last Admin: 03/31/21 21:18 Dose: 25 mg Documented by: Diphenhydramine HCl (Diphenhydramine 50 Mg/Ml Sdv) Confirm Administered Dose 50 mg .ROUTE .STK-MED ONE Stop: 03/31/21 20:50 Last Admin: 03/31/21 21:08 Dose: Not Given Documented by: Docusate Sodium (Docusate Sodium 100 Mg Cap) 100 - 200 mg PO DAILY PRN PRN Reason: Constipation Enoxaparin Sodium (Enoxaparin 30 Mg/0.3 Ml Syringe) 30 mg SUBCUT DAILY [facility] Fluconazole (Fluconazole 100 Mg Tab) 100 mg PO ONETIME ONE Stop: 03/31/21 20:33 Last Admin: 03/31/21 21:13 Dose: 100 mg Documented by: Sodium Chloride (Normal Saline) 1,000 mls @ 500 mls/hr IV ASDIRECTED [facility] Last Admin: 03/31/21 16:50 Dose: 500 mls/hr Documented by: Sodium Chloride (Normal Saline) Confirm Administered Dose 50 mls @ as directed .ROUTE .STK-MED ONE Stop: 03/31/21 18:53 Last Admin: 03/31/21 19:04 Dose: Not Given Documented by: Vancomycin HCl 1 gm/ Sodium (Chloride) 250 mls @ 166.667 mls/hr IV ONETIME ONE Stop: 03/31/21 20:29 Last Admin: 03/31/21 19:07 Dose: 166.667 mls/hr Documented by: Ketorolac Tromethamine (Ketorolac 30 Mg/Ml Sdv) 30 mg IVPUSH Q6H PRN PRN Reason: Pain (moderate 4-6) Methylprednisolone Sodium Succinate (Methylprednisolone Sodium Succinate 125 Mg/2 Ml Sdv) 62.5 mg IVPUSH ONETIME ONE Stop: 03/31/21 20:56 Last Admin: 03/31/21 21:19 Dose: 62.5 mg Documented by: Pantoprazole Sodium (Pantoprazole 40 Mg Vial) 40 mg IV BEDTIME [facility] Last Admin: 03/31/21 21:21 Dose: 40 mg Documented by: Vancomycin HCl (Vancomycin 1 Gm Sdv) 1 gm IV .PHARMACY TO DOSE [facility] - Exam General: Mild Distress, Lethargic. No: Alert, Oriented, Cooperative Lungs: Clear to Auscultation, Normal Respiratory Effort Cardiovascular: Regular Rate, Regular Rhythm GI/Abdominal Exam: Normal Bowel Sounds, Soft, Non-Tender, No Distention (Male) Exam: Circumcised, Scrotal Swelling, Other (lesions as described in HPI) Extremities: Normal Inspection, No Pedal Edema Skin: Warm, Dry, Other (Lesions as described in HPI and bilateral groin creases and left axilla) Neurological: No New Focal Deficit Psy/Mental Status: No: Alert - Patient Data Lab Results Last 24 hrs: Laboratory Results - last 24 hr 03/31/21 03/31/21 03/31/21 Range/Units 16:19 16:20 16:20 WBC 4.8 (4.5-11.0) K/uL RBC 3.33 L (4.30-5.90) M/uL Hgb 11.2 L (12.0-15.0) g/dL Hct 33.1 L (40.0-54.0) % MCV 99 H (80-98) fL MCH 34 H (27-31) pg MCHC 34 (32-36) % Plt Count 94 L (150-400) K/uL Neut % (Auto) 84.1 H (36-66) % Lymph % (Auto) 11.2 L (24-44) % [place] % (Auto) 1.0 L (2-6) % Eos % (Auto) 3.5 (2-4) % Baso % (Auto) 0.2 (0-1) % Sodium (140-148) mmol/L Potassium (3.6-5.2) mmol/L Chloride (100-108) mmol/L Carbon Dioxide (21-32) mmol/L Anion Gap (5.0-14.0) mmol/L BUN (7-18) mg/dL Creatinine (0.8-1.3) mg/dL Est Cr Clr Drug Dosing mL/min Estimated GFR (MDRD) (>60) Glucose (74-106) mg/dL POC Glucose (74-106) mg/dL Lactic Acid 0.7 (0.4-2.0) mmol/L Calcium (8.5-10.1) mg/dL Total Bilirubin (0.2-1.0) mg/dL AST (15-37) U/L ALT (12-78) U/L Alkaline Phosphatase (46-116) U/L Total Protein (6.4-8.2) g/dL Albumin (3.4-5.0) g/dL Globulin (2.3-3.5) g/dL Albumin/Globulin Ratio (1.2-2.2) Urine Color Yellow (YELLOW) Urine Appearance Clear (CLEAR) Urine pH 5.5 (5.0-8.0) Ur Specific [place] > 1.030 (1.008-1.030) Urine Protein Trace H (NEGATIVE) mg/dL Urine Glucose (UA) Normal (NEGATIVE) mg/dL Urine Ketones Negative (NEGATIVE) mg/dL Urine Occult Blood Negative (NEGATIVE) Urine Nitrite Negative (NEGATIVE) Urine Bilirubin Small H (NEGATIVE) Urine Urobilinogen 0.2 (0.2-1.0) EU/dL Ur Leukocyte Esterase Negative (NEGATIVE) Urine RBC 0-5 (0-5) Urine WBC Not seen (0-5) Ur Epithelial Cells Not seen Amorphous Sediment Not seen Urine Bacteria Rare Urine Mucus Not seen 03/31/21 03/31/21 03/31/21 Range/Units 16:20 20:58 22:42 WBC (4.5-11.0) K/uL RBC (4.30-5.90) M/uL Hgb (12.0-15.0) g/dL Hct (40.0-54.0) % MCV (80-98) fL MCH (27-31) pg MCHC (32-36) % Plt Count (150-400) K/uL Neut % (Auto) (36-66) % Lymph % (Auto) (24-44) % [place] % (Auto) (2-6) % Eos % (Auto) (2-4) % Baso % (Auto) (0-1) % Sodium 138 L (140-148) mmol/L Potassium 3.8 (3.6-5.2) mmol/L Chloride 102 (100-108) mmol/L Carbon Dioxide 29 (21-32) mmol/L Anion Gap 10.8 (5.0-14.0) mmol/L BUN 21 H (7-18) mg/dL Creatinine 0.7 L (0.8-1.3) mg/dL Est Cr Clr Drug Dosing 83.70 mL/min Estimated GFR (MDRD) > 60 (>60) Glucose 108 H (74-106) mg/dL POC Glucose 94 145 H (74-106) mg/dL Lactic Acid (0.4-2.0) mmol/L Calcium 8.0 L (8.5-10.1) mg/dL Total Bilirubin 1.3 H D (0.2-1.0) mg/dL AST 26 (15-37) U/L ALT 32 (12-78) U/L Alkaline Phosphatase 75 (46-116) U/L Total Protein 6.1 L (6.4-8.2) g/dL Albumin 3.1 L (3.4-5.0) g/dL Globulin 3.0 (2.3-3.5) g/dL Albumin/Globulin Ratio 1.0 L (1.2-2.2) Urine Color (YELLOW) Urine Appearance (CLEAR) Urine pH (5.0-8.0) Ur Specific [place] (1.008-1.030) Urine Protein (NEGATIVE) mg/dL Urine Glucose (UA) (NEGATIVE) mg/dL Urine Ketones (NEGATIVE) mg/dL Urine Occult Blood (NEGATIVE) Urine Nitrite (NEGATIVE) Urine Bilirubin (NEGATIVE) Urine Urobilinogen (0.2-1.0) EU/dL Ur Leukocyte Esterase (NEGATIVE) Urine RBC (0-5) Urine WBC (0-5) Ur Epithelial Cells Amorphous Sediment Urine Bacteria Urine Mucus 04/01/21 04/01/21 04/01/21 Range/Units 05:50 05:50 07:27 WBC 3.3 L (4.5-11.0) K/uL RBC 3.18 L (4.30-5.90) M/uL Hgb 10.4 L (12.0-15.0) g/dL Hct 31.4 L (40.0-54.0) % MCV 99 H (80-98) fL MCH 33 H (27-31) pg MCHC 33 (32-36) % Plt Count 75 L (150-400) K/uL Neut % (Auto) 91.9 H (36-66) % Lymph % (Auto) 8.1 L (24-44) % [place] % (Auto) 0.0 L (2-6) % Eos % (Auto) 0.0 L (2-4) % Baso % (Auto) 0.0 (0-1) % Sodium 140 (140-148) mmol/L Potassium 3.8 (3.6-5.2) mmol/L Chloride 106 (100-108) mmol/L Carbon Dioxide 28 (21-32) mmol/L Anion Gap 6.4 (5.0-14.0) mmol/L BUN 16 (7-18) mg/dL Creatinine 0.8 (0.8-1.3) mg/dL Est Cr Clr Drug Dosing 69.75 mL/min Estimated GFR (MDRD) > 60 (>60) Glucose 177 H (74-106) mg/dL POC Glucose 162 H (74-106) mg/dL Lactic Acid (0.4-2.0) mmol/L Calcium 7.7 L (8.5-10.1) mg/dL Total Bilirubin (0.2-1.0) mg/dL AST (15-37) U/L ALT (12-78) U/L Alkaline Phosphatase (46-116) U/L Total Protein (6.4-8.2) g/dL Albumin (3.4-5.0) g/dL Globulin (2.3-3.5) g/dL Albumin/Globulin Ratio (1.2-2.2) Urine Color (YELLOW) Urine Appearance (CLEAR) Urine pH (5.0-8.0) Ur Specific [place] (1.008-1.030) Urine Protein (NEGATIVE) mg/dL Urine Glucose (UA) (NEGATIVE) mg/dL Urine Ketones (NEGATIVE) mg/dL Urine Occult Blood (NEGATIVE) Urine Nitrite (NEGATIVE) Urine Bilirubin (NEGATIVE) Urine Urobilinogen (0.2-1.0) EU/dL Ur Leukocyte Esterase (NEGATIVE) Urine RBC (0-5) Urine WBC (0-5) Ur Epithelial Cells Amorphous Sediment Urine Bacteria Urine Mucus 04/01/21 Range/Units 11:29 WBC (4.5-11.0) K/uL RBC (4.30-5.90) M/uL Hgb (12.0-15.0) g/dL Hct (40.0-54.0) % MCV (80-98) fL MCH (27-31) pg MCHC (32-36) % Plt Count (150-400) K/uL Neut % (Auto) (36-66) % Lymph % (Auto) (24-44) % [place] % (Auto) (2-6) % Eos % (Auto) (2-4) % Baso % (Auto) (0-1) % Sodium (140-148) mmol/L Potassium (3.6-5.2) mmol/L Chloride (100-108) mmol/L Carbon Dioxide (21-32) mmol/L Anion Gap (5.0-14.0) mmol/L BUN (7-18) mg/dL Creatinine (0.8-1.3) mg/dL Est Cr Clr Drug Dosing mL/min Estimated GFR (MDRD) (>60) Glucose (74-106) mg/dL POC Glucose 238 H (74-106) mg/dL Lactic Acid (0.4-2.0) mmol/L Calcium (8.5-10.1) mg/dL Total Bilirubin (0.2-1.0) mg/dL AST (15-37) U/L ALT (12-78) U/L Alkaline Phosphatase (46-116) U/L Total Protein (6.4-8.2) g/dL Albumin (3.4-5.0) g/dL Globulin (2.3-3.5) g/dL Albumin/Globulin Ratio (1.2-2.2) Urine Color (YELLOW) Urine Appearance (CLEAR) Urine pH (5.0-8.0) Ur Specific [place] (1.008-1.030) Urine Protein (NEGATIVE) mg/dL Urine Glucose (UA) (NEGATIVE) mg/dL Urine Ketones (NEGATIVE) mg/dL Urine Occult Blood (NEGATIVE) Urine Nitrite (NEGATIVE) Urine Bilirubin (NEGATIVE) Urine Urobilinogen (0.2-1.0) EU/dL Ur Leukocyte Esterase (NEGATIVE) Urine RBC (0-5) Urine WBC (0-5) Ur Epithelial Cells Amorphous Sediment Urine Bacteria Urine Mucus Result Diagrams: 04/01/21 05:50 04/01/21 05:50 Bran Results Last 24 hrs: Microbiology 03/31/21 22:53 Gram Stain - Final Groin, Left Sepsis Event Note - Evaluation Sepsis Screening Result: No Definite Risk - Focused Exam Vital Signs: Vital Signs Temp Pulse Pulse Resp BP BP Pulse Ox 04/01/21 11:41 96.7 F L 73 16 128/97 H 95 04/01/21 10:57 68 142/63 H 04/01/21 07:44 96.8 F L 68 16 142/63 H 95 - Problem List & Annotations (1) Erysipelas SNOMED Code(s): 70906343 Code(s): A46 - ERYSIPELAS Status: Acute Current Visit: Yes - Problem List Review Problem List Initiated/Reviewed/Updated: Yes - My Orders Last 24 Hours: My Active Orders 04/01/21 10:48 Consult to Physical Therapy [PT Evaluation and Treatment] [CONS] Routine 04/01/21 15:30 cefTRIAXone [Rocephin] 2 gm Sodium Chloride 0.9% [Normal Saline] 50 ml IV Q24H 04/01/21 17:00 Fluconazole/Normal Saline [Diflucan in NS 200 MG/100 ML] 100 mg Premix Bag 1 bag IV Q24H - Plan Plan:: Assessment/Plan Comment:: ASSESSMENT AND PLAN Most likely erysipelas versus less likely intertrigo that failed outpatient topical antifungal/antibiotic treatment-left and right groin folds, left axilla -There is concern for the development of sepsis as he has become lethargic ho wever his vital signs remain stable, will monitor closely -IV Normal Saline 75 mL/h to avoid sepsis and maintain hydration -Pain medication as needed -IV ceftriaxone 2 g for possible erysipelas, to cover for group A strep, he had a reaction to vancomycin so that will be avoided -IV fluconazole 100 mg for possible intertrigo along with topical nystatin powder -The wound is to be kept dry, seem to have been placed to absorb moisture, the affected area was marked to determine if it is enlarging -Consult Wound Soft tissue mass in the right scrotum-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 -The scrotum appeared enlarged and erythematous and because of this and its proximity to the current infection and ultrasound was ordered. -Incidentally a soft tissue mass where the right scrotum should be was present. -He will need outpatient follow-up for this mass and possible biopsy, I did speak with family regarding this Diabetes mellitus- reports diet controlled, last HgbA1c 5.7 -4 times daily glucometers -Low-dose sliding scale Humalog Parkinson's Disease -continue outpatient medications MAINTENANCE ISSUES -DVT prophylaxis; SCDs -GI prophylaxis - IV Protonix 40 mg daily -Galindo catheter; not indicated -Nutrition- regular diet -consult to Wound CODE STATUS-DNR/DNI Plan: We will continue to treat him with IV antibiotics and antifungals for a total of 7 days. He is confused today so we will not even consider discharge until he is mentating better. I had an extensive talk with his [id number] about the scrotal mass and follow-up for this with urology we can put that toge ther for her. She also talked to me about possible fpc. She states that she believes it is time for her [id number] and utgian-sm-[id number] to move to a fpc as they are in steady decline. We will try to provide those resources to her. DISPOSITION-anticipate discharge to home after the hospital stay. PRIMARY CARE PROVIDER-Dr. Ronald Bran, DO
[2021-04-01] MEDS: cefTRIAXone 2 GM in Sodium Chloride 0.9% 50 ML IV SCH (16:06)
[2021-04-01] MEDS: Fluconazole/Normal Saline 100 MG in Premix Bag 1 BAG IV SCH (16:52)
[2021-04-01] MEDS: Pantoprazole 40 MG Tab.CR PO SCH (21:12)
[2021-04-02] MEDS: Nystatin Susp 100,000 Unit/ML 5 ML UD Cup PO SCH ×4 (06:46→21:00)
[2021-04-02] MEDS: Insulin Lispro 100 Unit/ML 3 ML KwikPen SUBCUT SCH ×4 (07:40→20:48)
[2021-04-02] MEDS: Carbidopa/Levodopa 25-100 MG Tab PO SCH ×2 (09:05→20:41)
[2021-04-02] MEDS: predniSONE 5 MG Tab PO SCH (09:05)
[2021-04-02] MEDS: Metoprolol Succinate 25 MG Tab.ER PO SCH (09:05)
[2021-04-02] MEDS: Folic Acid 1 MG Tab PO SCH (09:05)
[2021-04-02] MEDS: Sodium Chloride 0.9% 1,000 ML IV SCH (12:38)
[2021-04-02] MEDS: Nystatin Topical Powder 15 GM Bottle TOP SCH ×3 (14:36→20:40)
[2021-04-02] MEDS: cefTRIAXone 2 GM in Sodium Chloride 0.9% 50 ML IV SCH (15:44)
[2021-04-02] MEDS: Fluconazole/Normal Saline 100 MG in Premix Bag 1 BAG IV SCH (17:13)
--- NOTE | 2021-04-02 17:16 | PCM.PN ---
- General Info Date of Service: 04/02/21 Admission Dx/Problem (Free Text): Erysipelas versus intertrigo of the left groin and left axilla Subjective Update: Mr. Wilcox is doing very well today. He is no longer confused. The area of induration of the left groin fold is improving and less red/purple than it was yesterday. The area on the right fold of the groin looks significantly better a s well as the area in the axilla on the left. He states that he is feeling better and not having any noticeable symptoms. He is wanting to go home but I expressed to him that I wanted to keep him on IV medications for at least another day, this was also expressed to his [id number] and who are at bedside this afternoon when I saw him for the second time. Functional Status: Reports: Tolerating Diet, Urinating - Review of Systems General: Reports: No Symptoms, Appetite. Denies: Fever, Weakness, Chills HEENT: Reports: No Symptoms. Denies: Headaches, Visual Changes Pulmonary: Reports: No Symptoms. Denies: Shortness of Breath, Cough, Wheezing Cardiovascular: Reports: No Symptoms. Denies: Chest Pain, Palpitations Gastrointestinal: Reports: No Symptoms. Denies: Abdominal Pain, Constipation, Diarrhea Genitourinary: Reports: No Symptoms. Denies: Dysuria, Frequency, Urgency Musculoskeletal: Reports: No Symptoms, Neck Pain Skin: Reports: Other (The lesions are significantly less tender today) Neurological: Reports: No Symptoms. Denies: Confusion, Headache Psychiatric: Reports: No Symptoms. Denies: Confusion - Patient Data Vitals - Most Recent: Last Vital Signs Temp 97.1 F 04/02/21 15:18 Pulse 92 04/02/21 15:18 Resp 16 04/02/21 15:18 BP 144/55 H 04/02/21 15:18 Pulse Ox 96 04/02/21 15:18 Weight - Most Recent: 142 lb I&O - Last 24 Hours: Intake & Output 04/02/21 04/02/21 04/02/21 06:59 14:59 22:59 Intake Total 240 Output Total 325 200 200 Balance -325 -200 40 Lab Results Last 24 Hours: Laboratory Results - last 24 hr 04/01/21 04/02/21 04/02/21 Range/Units 21:23 07:20 11:26 POC Glucose 160 H 103 103 (74-106) mg/dL 04/02/21 Range/Units 16:28 POC Glucose 99 (74-106) mg/dL Bran Results Last 24 Hours: Microbiology 03/31/21 22:53 Gram Stain - Final Groin, Left Wound Culture - Preliminary 03/31/21 18:54 Aerobic Blood Culture - Preliminary Blood - Arm, Right NO GROWTH AFTER 1 DAY Anaerobic Blood Culture - Preliminary NO GROWTH AFTER 1 DAY 03/31/21 18:50 Aerobic Blood Culture - Preliminary Blood - Arm, Left NO GROWTH AFTER 1 DAY Anaerobic Blood Culture - Preliminary NO GROWTH AFTER 1 DAY Med Orders - Current: Current Medications Acetaminophen (Acetaminophen 325 Mg Tab) 650 mg PO Q4H PRN PRN Reason: Pain (Mild 1-3)/fever Albuterol (Albuterol 0.083% 2.5 Mg/3 Ml Neb Soln) 2.5 mg NEB Q4H PRN PRN Reason: Shortness Of Breath/wheezing Albuterol/Ipratropium (Albuterol/Ipratropium 3.0-0.5 Mg/3 Ml Neb Soln) 3 ml NEB QID PRN PRN Reason: Shortness Of Breath/wheezing Carbidopa/Levodopa (Carbidopa/Levodopa 25-100 Mg Tab) 1 tab PO BID [facility] Last Admin: 04/02/21 09:05 Dose: 1 tab Documented by: Cyclobenzaprine HCl (Cyclobenzaprine 10 Mg Tab) 10 mg PO BEDTIME PRN PRN Reason: Cramping Last Admin: 03/31/21 23:01 Dose: 10 mg Documented by: Docusate Sodium (Docusate Sodium 100 Mg Cap) 200 mg PO DAILY PRN PRN Reason: Constipation Folic Acid (Folic Acid 1 Mg Tab) 1 mg PO DAILY [facility] Last Admin: 04/02/21 09:05 Dose: 1 mg Documented by: Sodium Chloride (Normal Saline) 1,000 mls @ 75 mls/hr IV ASDIRECTED [facility] Last Admin: 04/02/21 12:38 Dose: 125 mls/hr Documented by: Fluconazole/Sodium Chloride (100 mg/ Premix) 50 mls @ 100 mls/hr IV Q24H [facility] Last Admin: 04/01/21 16:52 Dose: 100 mls/hr Documented by: Ceftriaxone Sodium 2 gm/ (Sodium Chloride) 50 mls @ 100 mls/hr IV Q24H [facility] Last Admin: 04/02/21 15:44 Dose: 100 mls/hr Documented by: Insulin Human Lispro (Insulin Lispro 100 Unit/Ml 3 Ml Kwikpen) 0 unit SUBCUT QIDACANDBED [facility]; Protocol Last Admin: 04/02/21 17:09 Dose: Not Given Documented by: Melatonin (Melatonin 3 Mg Tab) 6 mg PO BEDTIME PRN PRN Reason: Insomnia Metoprolol Succinate (Metoprolol Succinate 25 Mg Tab.Er) 25 mg PO DAILY [facility] Last Admin: 04/02/21 09:05 Dose: 25 mg Documented by: Morphine Sulfate (Morphine 2 Mg/Ml Syringe) 2 mg IVPUSH Q2H PRN PRN Reason: Pain (severe 7-10) Nystatin (Nystatin Topical Powder 15 Gm Bottle) 0 gm TOP TID [facility] Last Admin: 04/02/21 14:36 Dose: 1 applic Documented by: Nystatin (Nystatin Susp 100,000 Unit/Ml 5 Ml Ud Cup) 5 ml PO QID [facility] Last Admin: 04/02/21 15:44 Dose: 5 ml Documented by: Ondansetron HCl (Ondansetron 4 Mg Tab.Dis) 4 mg PO Q6H PRN PRN Reason: Nausea able to take PO Ondansetron HCl (Ondansetron 4 Mg/2 Ml Sdv) 4 mg IV Q4H PRN PRN Reason: Nausea/Vomiting Oxycodone HCl (Oxycodone 5 Mg Tab) 5 mg PO Q4H PRN PRN Reason: Pain (moderate 4-6) Pantoprazole Sodium (Pantoprazole 40 Mg Tab.Cr) 40 mg PO BEDTIME [facility] Last Admin: 04/01/21 21:12 Dose: 40 mg Documented by: Prednisone (Prednisone 5 Mg Tab) 2.5 mg PO DAILY@0800 [facility] Last Admin: 04/02/21 09:05 Dose: 2.5 mg Documented by: Discontinued Medications Diphenhydramine HCl (Diphenhydramine 50 Mg/Ml Sdv) 25 mg IVPUSH ONETIME ONE Stop: 03/31/21 20:48 Last Admin: 03/31/21 21:18 Dose: 25 mg Documented by: Diphenhydramine HCl (Diphenhydramine 50 Mg/Ml Sdv) Confirm Administered Dose 50 mg .ROUTE .STK-MED ONE Stop: 03/31/21 20:50 Last Admin: 03/31/21 21:08 Dose: Not Given Documented by: Docusate Sodium (Docusate Sodium 100 Mg Cap) 100 - 200 mg PO DAILY PRN PRN Reason: Constipation Enoxaparin Sodium (Enoxaparin 30 Mg/0.3 Ml Syringe) 30 mg SUBCUT DAILY [facility] Fluconazole (Fluconazole 100 Mg Tab) 100 mg PO ONETIME ONE Stop: 03/31/21 20:33 Last Admin: 03/31/21 21:13 Dose: 100 mg Documented by: Sodium Chloride (Normal Saline) 1,000 mls @ 500 mls/hr IV ASDIRECTED [facility] Last Admin: 03/31/21 16:50 Dose: 500 mls/hr Documented by: Sodium Chloride (Normal Saline) Confirm Administered Dose 50 mls @ as directed .ROUTE .STK-MED ONE Stop: 03/31/21 18:53 Last Admin: 03/31/21 19:04 Dose: Not Given Documented by: Vancomycin HCl 1 gm/ Sodium (Chloride) 250 mls @ 166.667 mls/hr IV ONETIME ONE Stop: 03/31/21 20:29 Last Admin: 03/31/21 19:07 Dose: 166.667 mls/hr Documented by: Ketorolac Tromethamine (Ketorolac 30 Mg/Ml Sdv) 30 mg IVPUSH Q6H PRN PRN Reason: Pain (moderate 4-6) Methylprednisolone Sodium Succinate (Methylprednisolone Sodium Succinate 125 Mg/2 Ml Sdv) 62.5 mg IVPUSH ONETIME ONE Stop: 03/31/21 20:56 Last Admin: 03/31/21 21:19 Dose: 62.5 mg Documented by: Pantoprazole Sodium (Pantoprazole 40 Mg Vial) 40 mg IV BEDTIME [facility] Last Admin: 03/31/21 21:21 Dose: 40 mg Documented by: Vancomycin HCl (Vancomycin 1 Gm Sdv) 1 gm IV .PHARMACY TO DOSE [facility] - Exam General: Alert, Oriented, Cooperative, No Acute Distress HEENT: Pupils Equal, EOMI, Mucous Membr. Moist/[place] Lungs: Clear to Auscultation, Normal Respiratory Effort Cardiovascular: Regular Rate, Regular Rhythm GI/Abdominal Exam: Normal Bowel Sounds, Soft, Non-Tender, No Distention (Male) Exam: Circumcised, Scrotal Swelling, Testicular Mass. No: Scrotum Tenderness (L), Scrotum Tenderness (R) Back Exam: Normal Inspection Extremities: Normal Inspection, Non-Tender, No Pedal Edema Skin: Warm, Dry Wound/Incisions: No Drainage, Erythema, Erythema Improving, Other (Moisture wicking antibiotic gauze is helping with moisture in the area) Neurological: No New Focal Deficit Psy/Mental Status: Alert, Normal Affect, Normal Mood - Patient Data Lab Results Last 24 hrs: Laboratory Results - last 24 hr 04/01/21 04/02/21 04/02/21 Range/Units 21:23 07:20 11:26 POC Glucose 160 H 103 103 (74-106) mg/dL 04/02/21 Range/Units 16:28 POC Glucose 99 (74-106) mg/dL Result Diagrams: 04/01/21 05:50 04/01/21 05:50 Bran Results Last 24 hrs: Microbiology 03/31/21 22:53 Gram Stain - Final Groin, Left Wound Culture - Preliminary 03/31/21 18:54 Aerobic Blood Culture - Preliminary Blood - Arm, Right NO GROWTH AFTER 1 DAY Anaerobic Blood Culture - Preliminary NO GROWTH AFTER 1 DAY 03/31/21 18:50 Aerobic Blood Culture - Preliminary Blood - Arm, Left NO GROWTH AFTER 1 DAY Anaerobic Blood Culture - Preliminary NO GROWTH AFTER 1 DAY Sepsis Event Note - Evaluation Sepsis Screening Result: No Definite Risk - Focused Exam Vital Signs: Vital Signs Temp Temp Pulse Pulse Resp BP BP 04/02/21 15:18 97.1 F 92 16 144/55 H 04/02/21 11:00 97.1 F 69 16 132/57 L 04/02/21 09:05 77 139/57 L 04/02/21 07:47 96.1 F L 61 16 139/57 L Pulse Ox 04/02/21 15:18 96 04/02/21 11:00 98 04/02/21 09:05 04/02/21 07:47 95 - Problem List & Annotations (1) Erysipelas SNOMED Code(s): 86180169 Code(s): A46 - ERYSIPELAS Status: Acute Current Visit: Yes (2) Parkinson disease SNOMED Code(s): 60816495 Code(s): G20 - PARKINSON'S DISEASE Status: Chronic Priority: High Current Visit: Yes - Problem List Review Problem List Initiated/Reviewed/Updated: Yes - My Orders Last 24 Hours: My Active Orders 04/01/21 17:00 Fluconazole/Normal Saline [Diflucan in NS 200 MG/100 ML] 100 mg Premix Bag 1 bag IV Q24H 04/02/21 07:50 SCD [Sequential Compression Device] [OM.PC] Routine - Plan Plan:: Assessment/Plan Comment:: ASSESSMENT AND PLAN Most likely erysipelas versus less likely intertrigo that failed outpatient topical antifungal/antibiotic treatment-left and right groin folds, left axilla -IV Normal Saline 75 mL/h to avoid sepsis and maintain hydration -Pain medication as needed -IV ceftriaxone 2 g for possible erysipelas, to cover for group A strep, he had a reaction to vancomycin so that will be avoided -IV fluconazole 100 mg for possible intertrigo along with topical nystatin powder -Continue to keep the wound as dry as possible -There is significant improvement in the erythema of the wound today and it is significantly less tender Soft tissue mass in the right scrotum-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 -Ultrasound of the scrotum shows a heterogeneous right mass where the right testicle should be, there was no evidence of testicle in the area -The patient states that the scrotum has been enlarging for the past 1 to 2 years, the [id number] caregiver states that the scrotum used to be very hard and it is now significantly less so -He will need outpatient follow-up for this mass and possible biopsy, I did speak with family regarding this Diabetes mellitus- reports diet controlled, last HgbA1c 5.7 -4 times daily glucometers -Low-dose sliding scale Humalog Parkinson's Disease -continue outpatient medications MAINTENANCE ISSUES -DVT prophylaxis; SCDs -GI prophylaxis - IV Protonix 40 mg daily -Galindo catheter; not indicated -Nutrition- regular diet -consult to Wound CODE STATUS-DNR/DNI Plan: We will keep him through the weekend for IV antibiotics. We will need to discharge him on oral antibiotics, this will be planned for Sunday. He will be discharged with his [id number]. For discharge planning we do need to provide her with information on nursing homes for the patient and his . DISPOSITION-anticipate discharge to home after the hospital stay. PRIMARY CARE PROVIDER-Dr. Ronald Bran, DO
[2021-04-02] MEDS: Pantoprazole 40 MG Tab.CR PO SCH (20:41)
[2021-04-03] MEDS: Sodium Chloride 0.9% 1,000 ML IV SCH (02:34)
[2021-04-03] MEDS: Nystatin Susp 100,000 Unit/ML 5 ML UD Cup PO SCH ×4 (05:42→21:08)
[2021-04-03] MEDS: Insulin Lispro 100 Unit/ML 3 ML KwikPen SUBCUT SCH ×4 (08:18→21:08)
[2021-04-03] MEDS: Carbidopa/Levodopa 25-100 MG Tab PO SCH ×2 (08:19→21:09)
[2021-04-03] MEDS: Folic Acid 1 MG Tab PO SCH (08:19)
[2021-04-03] MEDS: predniSONE 5 MG Tab PO SCH (08:19)
[2021-04-03] MEDS: Metoprolol Succinate 25 MG Tab.ER PO SCH (08:20)
[2021-04-03] MEDS: Nystatin Topical Powder 15 GM Bottle TOP SCH ×3 (10:40→21:09)
--- NOTE | 2021-04-03 14:03 | PCM.PN ---
- General Info Date of Service: 04/03/21 Admission Dx/Problem (Free Text): Erysipelas secondary to intertrigo of the left groin and left axilla, incidental right scrotal mass Subjective Update: Mr. Wilcox is thinking clearly and doing well today. His left axilla is no longer erythematous. The right groin crease has significantly improved and decreased in size. The left groin crease has also significantly decreased in size. The areas in the left groin fold where there was significant maceration of the skin remain bright red but they are improving. He is wanting to go home as he feels significantly better. He has no complaints other than pain in the groin areas affected especially with walking. Functional Status: Reports: Pain Controlled, Tolerating Diet, Ambulating, Urinating - Review of Systems General: Reports: No Symptoms, Appetite. Denies: Fever, Weakness, Fatigue, Chills HEENT: Reports: No Symptoms. Denies: Headaches, Visual Changes Pulmonary: Reports: No Symptoms. Denies: Shortness of Breath, Cough Cardiovascular: Reports: No Symptoms. Denies: Chest Pain, Palpitations Gastrointestinal: Reports: No Symptoms. Denies: Abdominal Pain, Constipation, Decreased Appetite, Diarrhea, Nausea, Vomiting Genitourinary: Reports: No Symptoms. Denies: Dysuria, Frequency, Burning Musculoskeletal: Reports: No Symptoms Skin: Reports: No Symptoms Neurological: Reports: No Symptoms. Denies: Confusion, Headache Psychiatric: Reports: No Symptoms. Denies: Confusion - Patient Data Vitals - Most Recent: Last Vital Signs Temp 96.9 F 04/03/21 10:33 Pulse 76 04/03/21 10:33 Resp 16 04/03/21 10:33 BP 151/54 H 04/03/21 10:33 Pulse Ox 95 04/03/21 10:33 Weight - Most Recent: 142 lb I&O - Last 24 Hours: Intake & Output 04/02/21 04/03/21 04/03/21 22:59 06:59 14:59 Intake Total 2703 Output Total 650 1000 200 Balance 2053 -1000 -200 Lab Results Last 24 Hours: Laboratory Results - last 24 hr 04/02/21 04/02/21 04/03/21 Range/Units 16:28 20:48 07:20 POC Glucose 99 153 H 93 (74-106) mg/dL 04/03/21 Range/Units 11:21 POC Glucose 112 H (74-106) mg/dL Bran Results Last 24 Hours: Microbiology 03/31/21 22:53 Gram Stain - Final Groin, Left Wound Culture - Preliminary Burkholderia Cepacia 03/31/21 18:54 Aerobic Blood Culture - Preliminary Blood - Arm, Right NO GROWTH AFTER 2 DAYS Anaerobic Blood Culture - Preliminary NO GROWTH AFTER 2 DAYS 03/31/21 18:50 Aerobic Blood Culture - Preliminary Blood - Arm, Left NO GROWTH AFTER 2 DAYS Anaerobic Blood Culture - Preliminary NO GROWTH AFTER 2 DAYS Med Orders - Current: Current Medications Acetaminophen (Acetaminophen 325 Mg Tab) 650 mg PO Q4H PRN PRN Reason: Pain (Mild 1-3)/fever Albuterol (Albuterol 0.083% 2.5 Mg/3 Ml Neb Soln) 2.5 mg NEB Q4H PRN PRN Reason: Shortness Of Breath/wheezing Albuterol/Ipratropium (Albuterol/Ipratropium 3.0-0.5 Mg/3 Ml Neb Soln) 3 ml NEB QID PRN PRN Reason: Shortness Of Breath/wheezing Carbidopa/Levodopa (Carbidopa/Levodopa 25-100 Mg Tab) 1 tab PO BID [facility] Last Admin: 04/03/21 08:19 Dose: 1 tab Documented by: Cyclobenzaprine HCl (Cyclobenzaprine 10 Mg Tab) 10 mg PO BEDTIME PRN PRN Reason: Cramping Last Admin: 03/31/21 23:01 Dose: 10 mg Documented by: Docusate Sodium (Docusate Sodium 100 Mg Cap) 200 mg PO DAILY PRN PRN Reason: Constipation Folic Acid (Folic Acid 1 Mg Tab) 1 mg PO DAILY [facility] Last Admin: 04/03/21 08:19 Dose: 1 mg Documented by: Fluconazole/Sodium Chloride (100 mg/ Premix) 50 mls @ 100 mls/hr IV Q24H [facility] Last Admin: 04/02/21 17:13 Dose: 100 mls/hr Documented by: Ceftriaxone Sodium 2 gm/ (Sodium Chloride) 50 mls @ 100 mls/hr IV Q24H [facility] Last Admin: 04/02/21 15:44 Dose: 100 mls/hr Documented by: Insulin Human Lispro (Insulin Lispro 100 Unit/Ml 3 Ml Kwikpen) 0 unit SUBCUT QIDACANDBED [facility]; Protocol Last Admin: 04/03/21 12:16 Dose: Not Given Documented by: Melatonin (Melatonin 3 Mg Tab) 6 mg PO BEDTIME PRN PRN Reason: Insomnia Metoprolol Succinate (Metoprolol Succinate 25 Mg Tab.Er) 25 mg PO DAILY [facility] Last Admin: 04/03/21 08:20 Dose: 25 mg Documented by: Morphine Sulfate (Morphine 2 Mg/Ml Syringe) 2 mg IVPUSH Q2H PRN PRN Reason: Pain (severe 7-10) Nystatin (Nystatin Topical Powder 15 Gm Bottle) 0 gm TOP TID [facility] Last Admin: 04/03/21 10:40 Dose: 1 applic Documented by: Nystatin (Nystatin Susp 100,000 Unit/Ml 5 Ml Ud Cup) 5 ml PO QID [facility] Last Admin: 04/03/21 10:40 Dose: 5 ml Documented by: Ondansetron HCl (Ondansetron 4 Mg Tab.Dis) 4 mg PO Q6H PRN PRN Reason: Nausea able to take PO Ondansetron HCl (Ondansetron 4 Mg/2 Ml Sdv) 4 mg IV Q4H PRN PRN Reason: Nausea/Vomiting Oxycodone HCl (Oxycodone 5 Mg Tab) 5 mg PO Q4H PRN PRN Reason: Pain (moderate 4-6) Pantoprazole Sodium (Pantoprazole 40 Mg Tab.Cr) 40 mg PO BEDTIME [facility] Last Admin: 04/02/21 20:41 Dose: 40 mg Documented by: Prednisone (Prednisone 5 Mg Tab) 2.5 mg PO DAILY@0800 [facility] Last Admin: 04/03/21 08:19 Dose: 2.5 mg Documented by: Discontinued Medications Diphenhydramine HCl (Diphenhydramine 50 Mg/Ml Sdv) 25 mg IVPUSH ONETIME ONE Stop: 03/31/21 20:48 Last Admin: 03/31/21 21:18 Dose: 25 mg Documented by: Diphenhydramine HCl (Diphenhydramine 50 Mg/Ml Sdv) Confirm Administered Dose 50 mg .ROUTE .STK-MED ONE Stop: 03/31/21 20:50 Last Admin: 03/31/21 21:08 Dose: Not Given Documented by: Docusate Sodium (Docusate Sodium 100 Mg Cap) 100 - 200 mg PO DAILY PRN PRN Reason: Constipation Enoxaparin Sodium (Enoxaparin 30 Mg/0.3 Ml Syringe) 30 mg SUBCUT DAILY [facility] Fluconazole (Fluconazole 100 Mg Tab) 100 mg PO ONETIME ONE Stop: 03/31/21 20:33 Last Admin: 03/31/21 21:13 Dose: 100 mg Documented by: Sodium Chloride (Normal Saline) 1,000 mls @ 500 mls/hr IV ASDIRECTED [facility] Last Admin: 03/31/21 16:50 Dose: 500 mls/hr Documented by: Sodium Chloride (Normal Saline) Confirm Administered Dose 50 mls @ as directed .ROUTE .STK-MED ONE Stop: 03/31/21 18:53 Last Admin: 03/31/21 19:04 Dose: Not Given Documented by: Vancomycin HCl 1 gm/ Sodium (Chloride) 250 mls @ 166.667 mls/hr IV ONETIME ONE Stop: 03/31/21 20:29 Last Admin: 03/31/21 19:07 Dose: 166.667 mls/hr Documented by: Sodium Chloride (Normal Saline) 1,000 mls @ 75 mls/hr IV ASDIRECTED [facility] Last Admin: 04/03/21 02:34 Dose: 125 mls/hr Documented by: Ketorolac Tromethamine (Ketorolac 30 Mg/Ml Sdv) 30 mg IVPUSH Q6H PRN PRN Reason: Pain (moderate 4-6) Methylprednisolone Sodium Succinate (Methylprednisolone Sodium Succinate 125 Mg/2 Ml Sdv) 62.5 mg IVPUSH ONETIME ONE Stop: 03/31/21 20:56 Last Admin: 03/31/21 21:19 Dose: 62.5 mg Documented by: Pantoprazole Sodium (Pantoprazole 40 Mg Vial) 40 mg IV BEDTIME [facility] Last Admin: 03/31/21 21:21 Dose: 40 mg Documented by: Vancomycin HCl (Vancomycin 1 Gm Sdv) 1 gm IV .PHARMACY TO DOSE [facility] - Exam Quality Assessment: Skin Breakdown (Improving) General: Alert, Oriented, Cooperative, No Acute Distress HEENT: Pupils Equal, EOMI, Mucous Membr. Moist/[place] Lungs: Clear to Auscultation, Normal Respiratory Effort Cardiovascular: Regular Rate, Regular Rhythm GI/Abdominal Exam: Normal Bowel Sounds, Soft, Non-Tender, No Distention (Male) Exam: Scrotal Swelling, Other (Groin lesion as described in HPI) Back Exam: Normal Inspection Extremities: Normal Inspection, No Pedal Edema Skin: Warm, Dry, Intact Wound/Incisions: Other (As described in HPI, improving) Neurological: No New Focal Deficit Psy/Mental Status: Alert, Normal Affect, Normal Mood - Patient Data Lab Results Last 24 hrs: Laboratory Results - last 24 hr 04/02/21 04/02/21 04/03/21 Range/Units 16:28 20:48 07:20 POC Glucose 99 153 H 93 (74-106) mg/dL 04/03/21 Range/Units 11:21 POC Glucose 112 H (74-106) mg/dL Result Diagrams: 04/01/21 05:50 04/01/21 05:50 Bran Results Last 24 hrs: Microbiology 03/31/21 22:53 Gram Stain - Final Groin, Left Wound Culture - Preliminary Burkholderia Cepacia 03/31/21 18:54 Aerobic Blood Culture - Preliminary Blood - Arm, Right NO GROWTH AFTER 2 DAYS Anaerobic Blood Culture - Preliminary NO GROWTH AFTER 2 DAYS 03/31/21 18:50 Aerobic Blood Culture - Preliminary Blood - Arm, Left NO GROWTH AFTER 2 DAYS Anaerobic Blood Culture - Preliminary NO GROWTH AFTER 2 DAYS Sepsis Event Note - Evaluation Sepsis Screening Result: No Definite Risk - Focused Exam Vital Signs: Vital Signs Temp Temp Pulse Pulse Resp BP BP 04/03/21 10:33 96.9 F 76 16 151/54 H 04/03/21 08:20 63 153/53 H 04/03/21 07:13 95.5 F L 63 16 153/53 H 04/03/21 02:54 96.1 F L 70 16 147/66 H Pulse Ox 04/03/21 10:33 95 04/03/21 08:20 04/03/21 07:13 95 04/03/21 02:54 97 - Problem List & Annotations (1) Erysipelas SNOMED Code(s): 27822189 Code(s): A46 - ERYSIPELAS Status: Acute Current Visit: Yes (2) Parkinson disease SNOMED Code(s): 80390257 Code(s): G20 - PARKINSON'S DISEASE Status: Chronic Priority: High Current Visit: Yes - Problem List Review Problem List Initiated/Reviewed/Updated: Yes - My Orders Last 24 Hours: My Active Orders 04/03/21 Lunch Mechanical Soft Diet [DIET] - Plan Plan:: Assessment/Plan Comment:: ASSESSMENT AND PLAN Erysipelas secondary to intertrigo that failed outpatient topical antifungal/antibiotic treatment (treatment for initial rash began in January)-left and right groin folds, left axilla-improving -Pain medication as needed -IV ceftriaxone 2 g for possible erysipelas, to cover for group A strep, he had a reaction to vancomycin so that will be avoided -IV fluconazole 100 mg for possible intertrigo along with topical nystatin powder -Continue to keep the wound as dry as possible-using moisture wicking cloth and groin folds Soft tissue mass in the right scrotum-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 -Ultrasound of the scrotum shows a heterogeneous right mass where the right testicle should be, there was no evidence of testicle in the area -The patient states that the scrotum has been enlarging for the past 1 to 2 years, the [id number] caregiver states that the scrotum used to be very hard and it is now significantly less so -He will need outpatient follow-up for this mass and possible biopsy/CT evaluation, I did speak with family regarding this Diabetes mellitus- reports diet controlled, last HgbA1c 5.7 -4 times daily glucometers -Low-dose sliding scale Humalog Parkinson's Disease -continue outpatient medications MAINTENANCE ISSUES -DVT prophylaxis: SCDs -GI prophylaxis: PPI -Galindo catheter: Not indicated -Nutrition: Regular diet CODE STATUS-DNR/DNI Plan: Continue IV antibiotics and monitor for improvement of lesions of the groin. [id number] will need information about nursing homes with discharge planning on Sunday. If he is ready to go on Sunday IV antibiotics can be changed to oral for discharge, this has been discussed with the family. DISPOSITION-anticipate discharge to home after the hospital stay. 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 Ronald Bran DO
[2021-04-03] MEDS: cefTRIAXone 2 GM in Sodium Chloride 0.9% 50 ML IV SCH (15:55)
[2021-04-03] MEDS: Fluconazole/Normal Saline 100 MG in Premix Bag 1 BAG IV SCH (17:17)
[2021-04-03] MEDS: Pantoprazole 40 MG Tab.CR PO SCH (21:08)
[2021-04-04] MEDS: Nystatin Susp 100,000 Unit/ML 5 ML UD Cup PO SCH ×5 (06:31→21:27)
[2021-04-04] MEDS: Folic Acid 1 MG Tab PO SCH (08:24)
[2021-04-04] MEDS: Insulin Lispro 100 Unit/ML 3 ML KwikPen SUBCUT SCH ×2 (08:24→12:39)
[2021-04-04] MEDS: Carbidopa/Levodopa 25-100 MG Tab PO SCH ×2 (08:24→20:09)
[2021-04-04] MEDS: predniSONE 5 MG Tab PO SCH (08:25)
[2021-04-04] MEDS: Metoprolol Succinate 25 MG Tab.ER PO SCH (08:25)
[2021-04-04] MEDS: Nystatin Topical Powder 15 GM Bottle TOP SCH (10:21)
--- NOTE | 2021-04-04 11:50 | PCM.PN ---
- General Info Date of Service: 04/04/21 Subjective Update: There were no acute events overnight. Vital signs have been stable. He has had further improvement in the groin rash and the right side is nearly back to vincent l. He continues to have some discomfort with dressing changes involving the left groin area. He is weak and is not able to stand on his own. He has not had any fevers. There are no new positive culture results. He feels weak and tired but otherwise feels okay. Platelet level and white count are slightly lower again today. We did talk today about discharge planning. His [id number] provides much of the assistance for the patient and his . She does not feel that she can provide adequate care for either of them or both of them at home at this time given the progression of their chronic illnesses further complicated by acute issues. She is wondering about [facility]dc versus assisted living cares after hospital discharge. Functional Status: Reports: Pain Controlled, Tolerating Diet - Review of Systems General: Reports: Weakness - Patient Data Vitals - Most Recent: Last Vital Signs Temp 35.6 C L 04/04/21 11:00 Pulse 70 04/04/21 11:00 Resp 16 04/04/21 11:00 BP 152/53 H 04/04/21 11:00 Pulse Ox 96 04/04/21 11:00 Weight - Most Recent: 64.41 kg I&O - Last 24 Hours: Intake & Output 04/03/21 04/04/21 04/04/21 22:59 06:59 14:59 Intake Total 1816 300 Output Total 900 400 Balance 916 -100 Lab Results Last 24 Hours: Laboratory Results - last 24 hr 04/03/21 04/03/21 04/04/21 Range/Units 16:38 20:53 05:00 WBC 2.8 L (4.5-11.0) K/uL RBC 3.11 L (4.30-5.90) M/uL Hgb 10.2 L (12.0-15.0) g/dL Hct 30.3 L (40.0-54.0) % MCV 97 (80-98) fL MCH 33 H (27-31) pg MCHC 34 (32-36) % Plt Count 44 L (150-400) K/uL Sodium (140-148) mmol/L Potassium (3.6-5.2) mmol/L Chloride (100-108) mmol/L Carbon Dioxide (21-32) mmol/L Anion Gap (5.0-14.0) mmol/L BUN (7-18) mg/dL Creatinine (0.8-1.3) mg/dL Est Cr Clr Drug Dosing mL/min Estimated GFR (MDRD) (>60) Glucose (74-106) mg/dL POC Glucose 116 H 134 H (74-106) mg/dL Calcium (8.5-10.1) mg/dL 04/04/21 04/04/21 04/04/21 Range/Units 05:00 07:47 11:29 WBC (4.5-11.0) K/uL RBC (4.30-5.90) M/uL Hgb (12.0-15.0) g/dL Hct (40.0-54.0) % MCV (80-98) fL MCH (27-31) pg MCHC (32-36) % Plt Count (150-400) K/uL Sodium 142 (140-148) mmol/L Potassium 3.8 (3.6-5.2) mmol/L Chloride 107 (100-108) mmol/L Carbon Dioxide 31 (21-32) mmol/L Anion Gap 4.4 L (5.0-14.0) mmol/L BUN 10 (7-18) mg/dL Creatinine 0.9 (0.8-1.3) mg/dL Est Cr Clr Drug Dosing 61.63 mL/min Estimated GFR (MDRD) > 60 (>60) Glucose 109 H (74-106) mg/dL POC Glucose 102 123 H (74-106) mg/dL Calcium 8.1 L (8.5-10.1) mg/dL Bran Results Last 24 Hours: Microbiology 03/31/21 22:53 Gram Stain - Final Groin, Left Wound Culture - Final Burkholderia Cepacia Staphylococcus Epidermidis 03/31/21 18:54 Aerobic Blood Culture - Preliminary Blood - Arm, Right NO GROWTH AFTER 3 DAYS Anaerobic Blood Culture - Preliminary NO GROWTH AFTER 3 DAYS 03/31/21 18:50 Aerobic Blood Culture - Preliminary Blood - Arm, Left NO GROWTH AFTER 3 DAYS Anaerobic Blood Culture - Preliminary NO GROWTH AFTER 3 DAYS Med Orders - Current: Current Medications Acetaminophen (Acetaminophen 325 Mg Tab) 650 mg PO Q4H PRN PRN Reason: Pain (Mild 1-3)/fever Albuterol (Albuterol 0.083% 2.5 Mg/3 Ml Neb Soln) 2.5 mg NEB Q4H PRN PRN Reason: Shortness Of Breath/wheezing Carbidopa/Levodopa (Carbidopa/Levodopa 25-100 Mg Tab) 1 tab PO BID [facility] Last Admin: 04/04/21 08:24 Dose: 1 tab Documented by: Cyclobenzaprine HCl (Cyclobenzaprine 10 Mg Tab) 10 mg PO BEDTIME PRN PRN Reason: Cramping Last Admin: 03/31/21 23:01 Dose: 10 mg Documented by: Docusate Sodium (Docusate Sodium 100 Mg Cap) 200 mg PO DAILY PRN PRN Reason: Constipation Folic Acid (Folic Acid 1 Mg Tab) 1 mg PO DAILY [facility] Last Admin: 04/04/21 08:24 Dose: 1 mg Documented by: Melatonin (Melatonin 3 Mg Tab) 6 mg PO BEDTIME PRN PRN Reason: Insomnia Metoprolol Succinate (Metoprolol Succinate 25 Mg Tab.Er) 25 mg PO DAILY [facility] Last Admin: 04/04/21 08:25 Dose: 25 mg Documented by: Morphine Sulfate (Morphine 2 Mg/Ml Syringe) 2 mg IVPUSH Q2H PRN PRN Reason: Pain (severe 7-10) Nystatin (Nystatin Susp 100,000 Unit/Ml 5 Ml Ud Cup) 5 ml PO QID [facility] Last Admin: 04/04/21 10:19 Dose: 5 ml Documented by: Ondansetron HCl (Ondansetron 4 Mg Tab.Dis) 4 mg PO Q6H PRN PRN Reason: Nausea able to take PO Ondansetron HCl (Ondansetron 4 Mg/2 Ml Sdv) 4 mg IV Q4H PRN PRN Reason: Nausea/Vomiting Oxycodone HCl (Oxycodone 5 Mg Tab) 5 mg PO Q4H PRN PRN Reason: Pain (moderate 4-6) Pantoprazole Sodium (Pantoprazole 40 Mg Tab.Cr) 40 mg PO BEDTIME [facility] Last Admin: 04/03/21 21:08 Dose: 40 mg Documented by: Prednisone (Prednisone 5 Mg Tab) 2.5 mg PO DAILY@0800 [facility] Last Admin: 04/04/21 08:25 Dose: 2.5 mg Documented by: Discontinued Medications Albuterol/Ipratropium (Albuterol/Ipratropium 3.0-0.5 Mg/3 Ml Neb Soln) 3 ml NEB QID PRN PRN Reason: Shortness Of Breath/wheezing Diphenhydramine HCl (Diphenhydramine 50 Mg/Ml Sdv) 25 mg IVPUSH ONETIME ONE Stop: 03/31/21 20:48 Last Admin: 03/31/21 21:18 Dose: 25 mg Documented by: Diphenhydramine HCl (Diphenhydramine 50 Mg/Ml Sdv) Confirm Administered Dose 50 mg .ROUTE .STK-MED ONE Stop: 03/31/21 20:50 Last Admin: 03/31/21 21:08 Dose: Not Given Documented by: Docusate Sodium (Docusate Sodium 100 Mg Cap) 100 - 200 mg PO DAILY PRN PRN Reason: Constipation Enoxaparin Sodium (Enoxaparin 30 Mg/0.3 Ml Syringe) 30 mg SUBCUT DAILY [facility] Fluconazole (Fluconazole 100 Mg Tab) 100 mg PO ONETIME ONE Stop: 03/31/21 20:33 Last Admin: 03/31/21 21:13 Dose: 100 mg Documented by: Sodium Chloride (Normal Saline) 1,000 mls @ 500 mls/hr IV ASDIRECTED [facility] Last Admin: 03/31/21 16:50 Dose: 500 mls/hr Documented by: Sodium Chloride (Normal Saline) Confirm Administered Dose 50 mls @ as directed .ROUTE .STK-MED ONE Stop: 03/31/21 18:53 Last Admin: 03/31/21 19:04 Dose: Not Given Documented by: Vancomycin HCl 1 gm/ Sodium (Chloride) 250 mls @ 166.667 mls/hr IV ONETIME ONE Stop: 03/31/21 20:29 Last Admin: 03/31/21 19:07 Dose: 166.667 mls/hr Documented by: Sodium Chloride (Normal Saline) 1,000 mls @ 75 mls/hr IV ASDIRECTED [facility] Last Admin: 04/03/21 02:34 Dose: 125 mls/hr Documented by: Fluconazole/Sodium Chloride (100 mg/ Premix) 50 mls @ 100 mls/hr IV Q24H [facility] Last Admin: 04/03/21 17:17 Dose: 100 mls/hr Documented by: Ceftriaxone Sodium 2 gm/ (Sodium Chloride) 50 mls @ 100 mls/hr IV Q24H [facility] Last Admin: 04/03/21 15:55 Dose: 100 mls/hr Documented by: Insulin Human Lispro (Insulin Lispro 100 Unit/Ml 3 Ml Kwikpen) 0 unit SUBCUT QIDACANDBED [facility]; Protocol Last Admin: 04/04/21 08:24 Dose: Not Given Documented by: Ketorolac Tromethamine (Ketorolac 30 Mg/Ml Sdv) 30 mg IVPUSH Q6H PRN PRN Reason: Pain (moderate 4-6) Methylprednisolone Sodium Succinate (Methylprednisolone Sodium Succinate 125 Mg/2 Ml Sdv) 62.5 mg IVPUSH ONETIME ONE Stop: 03/31/21 20:56 Last Admin: 03/31/21 21:19 Dose: 62.5 mg Documented by: Nystatin (Nystatin Topical Powder 15 Gm Bottle) 0 gm TOP TID [facility] Last Admin: 04/04/21 10:21 Dose: 1 applic Documented by: Pantoprazole Sodium (Pantoprazole 40 Mg Vial) 40 mg IV BEDTIME [facility] Last Admin: 03/31/21 21:21 Dose: 40 mg Documented by: Vancomycin HCl (Vancomycin 1 Gm Sdv) 1 gm IV .PHARMACY TO DOSE [facility] - Exam Quality Assessment: No: Supplemental Oxygen General: Alert, Cooperative, No Acute Distress Lungs: Normal Respiratory Effort GI/Abdominal Exam: Soft, No Distention Extremities: No Pedal Edema Skin: Warm, Dry, Rash (maceration right groin fold ) Neurological: Other (parkinsons tremor ) Psy/Mental Status: Alert, Normal Affect - Patient Data Lab Results Last 24 hrs: Laboratory Results - last 24 hr 04/03/21 04/03/21 04/04/21 Range/Units 16:38 20:53 05:00 WBC 2.8 L (4.5-11.0) K/uL RBC 3.11 L (4.30-5.90) M/uL Hgb 10.2 L (12.0-15.0) g/dL Hct 30.3 L (40.0-54.0) % MCV 97 (80-98) fL MCH 33 H (27-31) pg MCHC 34 (32-36) % Plt Count 44 L (150-400) K/uL Sodium (140-148) mmol/L Potassium (3.6-5.2) mmol/L Chloride (100-108) mmol/L Carbon Dioxide (21-32) mmol/L Anion Gap (5.0-14.0) mmol/L BUN (7-18) mg/dL Creatinine (0.8-1.3) mg/dL Est Cr Clr Drug Dosing mL/min Estimated GFR (MDRD) (>60) Glucose (74-106) mg/dL POC Glucose 116 H 134 H (74-106) mg/dL Calcium (8.5-10.1) mg/dL 04/04/21 04/04/21 04/04/21 Range/Units 05:00 07:47 11:29 WBC (4.5-11.0) K/uL RBC (4.30-5.90) M/uL Hgb (12.0-15.0) g/dL Hct (40.0-54.0) % MCV (80-98) fL MCH (27-31) pg MCHC (32-36) % Plt Count (150-400) K/uL Sodium 142 (140-148) mmol/L Potassium 3.8 (3.6-5.2) mmol/L Chloride 107 (100-108) mmol/L Carbon Dioxide 31 (21-32) mmol/L Anion Gap 4.4 L (5.0-14.0) mmol/L BUN 10 (7-18) mg/dL Creatinine 0.9 (0.8-1.3) mg/dL Est Cr Clr Drug Dosing 61.63 mL/min Estimated GFR (MDRD) > 60 (>60) Glucose 109 H (74-106) mg/dL POC Glucose 102 123 H (74-106) mg/dL Calcium 8.1 L (8.5-10.1) mg/dL Result Diagrams: 04/04/21 05:00 04/04/21 05:00 Bran Results Last 24 hrs: Microbiology 03/31/21 22:53 Gram Stain - Final Groin, Left Wound Culture - Final Burkholderia Cepacia Staphylococcus Epidermidis 03/31/21 18:54 Aerobic Blood Culture - Preliminary Blood - Arm, Right NO GROWTH AFTER 3 DAYS Anaerobic Blood Culture - Preliminary NO GROWTH AFTER 3 DAYS 03/31/21 18:50 Aerobic Blood Culture - Preliminary Blood - Arm, Left NO GROWTH AFTER 3 DAYS Anaerobic Blood Culture - Preliminary NO GROWTH AFTER 3 DAYS Sepsis Event Note - Evaluation Sepsis Screening Result: No Definite Risk - Focused Exam Vital Signs: Vital Signs Temp Pulse Pulse Resp BP BP Pulse Ox 04/04/21 11:00 35.6 C L 70 16 152/53 H 96 04/04/21 08:25 96 152/80 H 04/04/21 07:00 36.5 C 73 16 152/80 H 95 04/04/21 02:40 35.6 C L 66 16 161/64 H 98 - Problem List Review Problem List Initiated/Reviewed/Updated: Yes - My Orders Last 24 Hours: My Active Orders 04/04/21 14:00 Nystatin [Nystatin Crm] 1 gm TOP TID 04/04/21 17:00 Fluconazole [Diflucan] 100 mg PO Q24H 04/04/21 21:00 Cefdinir [Omnicef] 300 mg PO BID 04/05/21 05:00 CBC W/O DIFF,HEMOGRAM [HEME] Timed (1) - Plan Plan:: Assessment/Plan Comment:: ASSESSMENT AND PLAN Erysipelas secondary to intertrigo-failed outpatient topical antifungal/an tibiotic treatment. Doing well with current level of care and only the left groin fold has residual lesions at this time. It does remain quite macerated but is improving. -Pain medication as needed -Transition to cefdinir -Transition to oral fluconazole -Nystatin cream to left groin Soft tissue mass in the right scrotum-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. History of right testicular resection because of hernia. -CT abdomen and pelvis in the morning Diabetes mellitus-diet controlled, last HgbA1c 5.7. - discontinue sliding scale insulin and Accu-Cheks Parkinson's Disease-complicated by generalized weakness as well as some swallowing difficulties. He may be progressing close to the end stage of his disease. -continue outpatient medications MAINTENANCE ISSUES -DVT prophylaxis: SCDs -GI prophylaxis: PPI -Galindo catheter: Not indicated -Nutrition: Mechanical soft DISPOSITION-anticipate [facility] to the [facility] for [facility]acute rehab after the hospital stay Neptali Bautista MD
[2021-04-04] MEDS: Nystatin Crm 15 GM Tube TOP SCH ×2 (15:11→20:10)
[2021-04-04] MEDS ORDERED: Fluconazole 100 MG Tab PO SCH (17:00)
[2021-04-04] MEDS ORDERED: Magnesium Hydroxide 400 MG/5 ML Susp 30 ML Cup PO PRN (18:07)
[2021-04-04] MEDS: Cefdinir 300 MG Cap PO SCH (20:09)
[2021-04-04] MEDS: Pantoprazole 40 MG Tab.CR PO SCH (20:09)
[2021-04-05] MEDS: Nystatin Susp 100,000 Unit/ML 5 ML UD Cup PO SCH ×4 (06:20→22:31)
[2021-04-05] MEDS ORDERED: Iopamidol 612 MG/ML 100 ML Bottle IV PRN (07:32)
[2021-04-05] MEDS ORDERED: Sodium Chloride 0.9% 10 ML Syringe FLUSH PRN (07:32)
[2021-04-05] MEDS ORDERED: Bisacodyl 10 MG Supp RECTAL ONE (08:57)
[2021-04-05] MEDS: Folic Acid 1 MG Tab PO SCH (09:00)
[2021-04-05] MEDS: Metoprolol Succinate 25 MG Tab.ER PO SCH (09:00)
[2021-04-05] MEDS: predniSONE 5 MG Tab PO SCH (09:01)
[2021-04-05] MEDS: Cefdinir 300 MG Cap PO SCH ×2 (09:01→20:17)
[2021-04-05] MEDS: Nystatin Crm 15 GM Tube TOP SCH ×3 (09:01→20:24)
[2021-04-05] MEDS: Carbidopa/Levodopa 25-100 MG Tab PO SCH ×2 (09:02→20:17)
--- NOTE | 2021-04-05 12:13 | PCM.PN ---
- General Info Date of Service: 04/05/21 Subjective Update: No acute events overnight. No fevers. Vital signs have been stable. No significant pain in the left groin this morning. Strength is a little better. He was able to ambulate a good distance once he was up but reports difficulty getting from sitting to standing and standing back down to sitting. No reports of scrotal pain. - Patient Data Vitals - Most Recent: Last Vital Signs Temp 36.4 C 04/05/21 11:00 Pulse 68 04/05/21 11:00 Resp 16 04/05/21 11:00 BP 154/67 H 04/05/21 11:00 Pulse Ox 97 04/05/21 11:00 Weight - Most Recent: 64.41 kg I&O - Last 24 Hours: Intake & Output 04/04/21 04/05/21 04/05/21 22:59 06:59 14:59 Intake Total 380 300 320 Output Total 350 200 Balance 380 -50 120 Lab Results Last 24 Hours: Laboratory Results - last 24 hr 04/04/21 04/04/21 04/05/21 Range/Units 16:28 21:49 04:10 WBC 2.8 L (4.5-11.0) K/uL RBC 2.97 L (4.30-5.90) M/uL Hgb 9.8 L (12.0-15.0) g/dL Hct 28.8 L (40.0-54.0) % MCV 97 (80-98) fL MCH 33 H (27-31) pg MCHC 34 (32-36) % Plt Count 32 L (150-400) K/uL POC Glucose 173 H 138 H (74-106) mg/dL Bran Results Last 24 Hours: Microbiology 03/31/21 18:54 Aerobic Blood Culture - Preliminary Blood - Arm, Right NO GROWTH AFTER 4 DAYS Anaerobic Blood Culture - Preliminary NO GROWTH AFTER 4 DAYS 03/31/21 18:50 Aerobic Blood Culture - Preliminary Blood - Arm, Left NO GROWTH AFTER 4 DAYS Anaerobic Blood Culture - Preliminary NO GROWTH AFTER 4 DAYS Med Orders - Current: Current Medications Acetaminophen (Acetaminophen 325 Mg Tab) 650 mg PO Q4H PRN PRN Reason: Pain (Mild 1-3)/fever Albuterol (Albuterol 0.083% 2.5 Mg/3 Ml Neb Soln) 2.5 mg NEB Q4H PRN PRN Reason: Shortness Of Breath/wheezing Carbidopa/Levodopa (Carbidopa/Levodopa 25-100 Mg Tab) 1 tab PO BID [facility] Last Admin: 04/05/21 09:02 Dose: 1 tab Documented by: Cefdinir (Cefdinir 300 Mg Cap) 300 mg PO BID [facility] Last Admin: 04/05/21 09:01 Dose: 300 mg Documented by: Cholecalciferol (Cholecalciferol (Vitamin D3) 50,000 Unit Cap) 50,000 unit PO ONETIME ONE Stop: 04/05/21 13:01 Cyclobenzaprine HCl (Cyclobenzaprine 10 Mg Tab) 10 mg PO BEDTIME PRN PRN Reason: Cramping Last Admin: 03/31/21 23:01 Dose: 10 mg Documented by: Docusate Sodium (Docusate Sodium 100 Mg Cap) 200 mg PO DAILY PRN PRN Reason: Constipation Last Admin: 04/05/21 09:12 Dose: 200 mg Documented by: Folic Acid (Folic Acid 1 Mg Tab) 1 mg PO DAILY [facility] Last Admin: 04/05/21 09:00 Dose: 1 mg Documented by: Magnesium Hydroxide (Magnesium Hydroxide 400 Mg/5 Ml Susp 30 Ml Cup) 30 ml PO BID PRN PRN Reason: Constipation Last Admin: 04/04/21 18:47 Dose: 30 ml Documented by: Melatonin (Melatonin 3 Mg Tab) 6 mg PO BEDTIME PRN PRN Reason: Insomnia Metoprolol Succinate (Metoprolol Succinate 25 Mg Tab.Er) 25 mg PO DAILY [facility] Last Admin: 04/05/21 09:00 Dose: 25 mg Documented by: Morphine Sulfate (Morphine 2 Mg/Ml Syringe) 2 mg IVPUSH Q2H PRN PRN Reason: Pain (severe 7-10) Nystatin (Nystatin Susp 100,000 Unit/Ml 5 Ml Ud Cup) 5 ml PO QID [facility] Last Admin: 04/05/21 09:01 Dose: 5 ml Documented by: Nystatin (Nystatin Crm 15 Gm Tube) 0 gm TOP TID [facility] Last Admin: 04/05/21 09:01 Dose: 1 applic Documented by: Ondansetron HCl (Ondansetron 4 Mg Tab.Dis) 4 mg PO Q6H PRN PRN Reason: Nausea able to take PO Ondansetron HCl (Ondansetron 4 Mg/2 Ml Sdv) 4 mg IV Q4H PRN PRN Reason: Nausea/Vomiting Oxycodone HCl (Oxycodone 5 Mg Tab) 5 mg PO Q4H PRN PRN Reason: Pain (moderate 4-6) Pantoprazole Sodium (Pantoprazole 40 Mg Tab.Cr) 40 mg PO BEDTIME [facility] Last Admin: 04/04/21 20:09 Dose: 40 mg Documented by: Prednisone (Prednisone 5 Mg Tab) 2.5 mg PO DAILY@0800 [facility] Last Admin: 04/05/21 09:01 Dose: 2.5 mg Documented by: Discontinued Medications Albuterol/Ipratropium (Albuterol/Ipratropium 3.0-0.5 Mg/3 Ml Neb Soln) 3 ml NEB QID PRN PRN Reason: Shortness Of Breath/wheezing Bisacodyl (Bisacodyl 10 Mg Supp) 10 mg RECTAL ONETIME ONE Stop: 04/05/21 08:58 Last Admin: 04/05/21 09:12 Dose: 10 mg Documented by: Diphenhydramine HCl (Diphenhydramine 50 Mg/Ml Sdv) 25 mg IVPUSH ONETIME ONE Stop: 03/31/21 20:48 Last Admin: 03/31/21 21:18 Dose: 25 mg Documented by: Diphenhydramine HCl (Diphenhydramine 50 Mg/Ml Sdv) Confirm Administered Dose 50 mg .ROUTE .STK-MED ONE Stop: 03/31/21 20:50 Last Admin: 03/31/21 21:08 Dose: Not Given Documented by: Docusate Sodium (Docusate Sodium 100 Mg Cap) 100 - 200 mg PO DAILY PRN PRN Reason: Constipation Enoxaparin Sodium (Enoxaparin 30 Mg/0.3 Ml Syringe) 30 mg SUBCUT DAILY [facility] Fluconazole (Fluconazole 100 Mg Tab) 100 mg PO ONETIME ONE Stop: 03/31/21 20:33 Last Admin: 03/31/21 21:13 Dose: 100 mg Documented by: Fluconazole (Fluconazole 100 Mg Tab) 100 mg PO Q24H [facility] Last Admin: 04/04/21 17:16 Dose: 100 mg Documented by: Sodium Chloride (Normal Saline) 1,000 mls @ 500 mls/hr IV ASDIRECTED [facility] Last Admin: 03/31/21 16:50 Dose: 500 mls/hr Documented by: Sodium Chloride (Normal Saline) Confirm Administered Dose 50 mls @ as directed .ROUTE .STK-MED ONE Stop: 03/31/21 18:53 Last Admin: 03/31/21 19:04 Dose: Not Given Documented by: Vancomycin HCl 1 gm/ Sodium (Chloride) 250 mls @ 166.667 mls/hr IV ONETIME ONE Stop: 03/31/21 20:29 Last Admin: 03/31/21 19:07 Dose: 166.667 mls/hr Documented by: Sodium Chloride (Normal Saline) 1,000 mls @ 75 mls/hr IV ASDIRECTED [facility] Last Admin: 04/03/21 02:34 Dose: 125 mls/hr Documented by: Fluconazole/Sodium Chloride (100 mg/ Premix) 50 mls @ 100 mls/hr IV Q24H [facility] Last Admin: 04/03/21 17:17 Dose: 100 mls/hr Documented by: Ceftriaxone Sodium 2 gm/ (Sodium Chloride) 50 mls @ 100 mls/hr IV Q24H [facility] Last Admin: 04/03/21 15:55 Dose: 100 mls/hr Documented by: Sodium Chloride (Normal Saline) 70 mls @ 3 mls/sec IV ONETIME ONE Stop: 04/05/21 07:33 Last Admin: 04/05/21 08:05 Dose: 3 mls/sec Documented by: Insulin Human Lispro (Insulin Lispro 100 Unit/Ml 3 Ml Kwikpen) 0 unit SUBCUT QIDACANDBED [facility]; Protocol Last Admin: 04/04/21 12:39 Dose: Not Given Documented by: Iopamidol (Iopamidol 612 Mg/Ml 100 Ml Bottle) 96 ml IV . DIRECTED PRN PRN Reason: RADIOLOGY EXAM Stop: 04/05/21 07:33 Last Admin: 04/05/21 08:04 Dose: 96 ml Documented by: Ketorolac Tromethamine (Ketorolac 30 Mg/Ml Sdv) 30 mg IVPUSH Q6H PRN PRN Reason: Pain (moderate 4-6) Methylprednisolone Sodium Succinate (Methylprednisolone Sodium Succinate 125 Mg/2 Ml Sdv) 62.5 mg IVPUSH ONETIME ONE Stop: 03/31/21 20:56 Last Admin: 03/31/21 21:19 Dose: 62.5 mg Documented by: Nystatin (Nystatin Topical Powder 15 Gm Bottle) 0 gm TOP TID [facility] Last Admin: 04/04/21 10:21 Dose: 1 applic Documented by: Pantoprazole Sodium (Pantoprazole 40 Mg Vial) 40 mg IV BEDTIME [facility] Last Admin: 03/31/21 21:21 Dose: 40 mg Documented by: Sodium Chloride (Sodium Chloride 0.9% 10 Ml Syringe) 10 ml FLUSH ONETIME PRN PRN Reason: PER RADIOLOGY PROTOCOL Stop: 04/05/21 07:33 Last Admin: 04/05/21 08:05 Dose: 10 ml Documented by: Vancomycin HCl (Vancomycin 1 Gm Sdv) 1 gm IV .PHARMACY TO DOSE [facility] - Exam Quality Assessment: No: Supplemental Oxygen General: Alert, Oriented, Cooperative, No Acute Distress Lungs: Normal Respiratory Effort GI/Abdominal Exam: Soft, No Distention Extremities: No Pedal Edema. No: Increased Warmth Skin: Warm, Dry Wound/Incisions: Other (Improving area of maceration in the left groin fold. No surrounding erythema or induration.) Psy/Mental Status: Alert, Normal Affect - Patient Data Lab Results Last 24 hrs: Laboratory Results - last 24 hr 04/04/21 04/04/21 04/05/21 Range/Units 16:28 21:49 04:10 WBC 2.8 L (4.5-11.0) K/uL RBC 2.97 L (4.30-5.90) M/uL Hgb 9.8 L (12.0-15.0) g/dL Hct 28.8 L (40.0-54.0) % MCV 97 (80-98) fL MCH 33 H (27-31) pg MCHC 34 (32-36) % Plt Count 32 L (150-400) K/uL POC Glucose 173 H 138 H (74-106) mg/dL Result Diagrams: 04/05/21 04:10 04/04/21 05:00 Bran Results Last 24 hrs: Microbiology 03/31/21 18:54 Aerobic Blood Culture - Preliminary Blood - Arm, Right NO GROWTH AFTER 4 DAYS Anaerobic Blood Culture - Preliminary NO GROWTH AFTER 4 DAYS 03/31/21 18:50 Aerobic Blood Culture - Preliminary Blood - Arm, Left NO GROWTH AFTER 4 DAYS Anaerobic Blood Culture - Preliminary NO GROWTH AFTER 4 DAYS Sepsis Event Note - Evaluation Sepsis Screening Result: No Definite Risk - Focused Exam Vital Signs: Vital Signs Temp Pulse Pulse Resp BP BP Pulse Ox 04/05/21 11:00 36.4 C 68 16 154/67 H 97 04/05/21 09:00 62 152/58 H 04/05/21 07:34 36.6 C 62 16 152/58 H 95 04/05/21 02:15 35.9 C L 66 16 137/55 L 94 L - Problem List Review Problem List Initiated/Reviewed/Updated: Yes - My Orders Last 24 Hours: My Active Orders 04/04/21 14:00 Nystatin [Nystatin Crm] 0 gm TOP TID 04/04/21 18:07 Magnesium Hydroxide [Milk of Magnesia] 30 ml PO BID PRN 04/04/21 21:00 GLUCOSE POC LAB TO COLLECT JPM [POC] QIDACANDBED Cefdinir [Omnicef] 300 mg PO BID 04/05/21 07:00 Abdomen Pelvis w Cont [CT] Routine 04/05/21 08:17 HEMATOPATH CONSULTATION, SMEAR Routine 04/05/21 13:00 Cholecalciferol (Vitamin D3) [Vitamin D3] 50,000 unit PO ONETIME ONE - Plan Plan:: ASSESSMENT AND PLAN - Erysipelas secondary to intertrigo-failed outpatient topical antifungal/antibiotic treatment. Steadily improving with some residual inflammation in the left groin fold. 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 This is highly suspicious for renal cell carcinoma. -Physical therapy to improve strength and endurance -Outpatient follow-up to consider resection Soft tissue mass in the right scrotum-CT suggest this is a fat-containing hernia. -Outpatient surgical follow-up Diabetes mellitus-diet controlled, last HgbA1c 5.7. -discontinue sliding scale insulin and Accu-Cheks Parkinson's Disease-complicated by generalized weakness as well as some swallowing difficulties. He may be progressing close to the end stage of his disease. -continue outpatient medications MAINTENANCE ISSUES -DVT prophylaxis: SCDs -GI prophylaxis: PPI -Galindo catheter: Not indicated -Nutrition: Mechanical soft DISPOSITION-anticipate [facility] for subacute re[facility] after the hospital stay Neptali Bautista MD
--- NOTE | 2021-04-05 12:50 | CT ---
Abdomen Pelvis w Cont CLINICAL HISTORY: Scrotal mass COMPARISON: Current ultrasound. TECHNIQUE: Transverse scans were obtained from the base of the lungs to the pubic symphysis following oral contrast and IV infusion of contrast.Auto dosage reduction and iterative reconstructiontechniques employed. FINDINGS: There has been previous right herniorrhaphy. There is a 1.8 x 2.8 x 2.8 cm soft tissue focus in the lower portion of the right inguinal canal. There are surgical clips and sutures from previous herniorrhaphy repair. There is a very large left-sided inguinal hernia containing peritoneal fat. Scans down through the scrotum show a single testicle. There is some minimal hydrocele. The lung bases show bilateral pleural parenchymal scarring posteriorly. The liver shows no mass or biliary dilatation. There is interposition of the colon anteriorly under the right hemidiaphragm.. The gallbladder contains multiple internal densities consistent with stones. The spleen has normal size and shape. The pancreas shows no mass or inflammatory change. The adrenal glands appear normal bilaterally . There is a 2.7 x 2.2 x 2.6 cm solid mass off the lower pole of the left kidney anteriorly. The ureters a 2.4 x 2.9 cm low-attenuation focus of the midpole of the right kidney. This may represent a simple or complex cyst. There is no hydronephrosis. No stones are seen. The ureters have an normal course and caliber. The bladder has a normal contour. The aorta shows some atheromatous plaque without aneurysm. Aorta and iliac arteries are tortuous. There is no suspicious retroperitoneal adenopathy. Small intestinal configuration is nonacute. There is moderate stool throughout a redundant colon. There is a focal density in the left ilium which is most likely a bone island IMPRESSION: 2.7 x 2.2 x 2.6 cm solid mass off the lower pole left kidney. Renal cell carcinoma should be considered. Very large fat-containing left inguinal hernia. There is only a single testicle seen within the lower scrotum. There has been previous right inguinal surgery. This may have been previous hernia repair. There is also left lower retroperitoneal surgical suture which may be related to possible right orchiectomy. This should be correlated with patient's surgical history Cholelithiasis
[2021-04-05] MEDS ORDERED: Cholecalciferol (Vitamin D3) 50,000 Unit Cap PO ONE (13:00)
[2021-04-05] MEDS: Pantoprazole 40 MG Tab.CR PO SCH (20:17)
[2021-04-06] MEDS: Nystatin Susp 100,000 Unit/ML 5 ML UD Cup PO SCH ×4 (06:11→22:33)
[2021-04-06] MEDS: Cefdinir 300 MG Cap PO SCH ×2 (09:48→20:18)
[2021-04-06] MEDS: Metoprolol Succinate 25 MG Tab.ER PO SCH (09:48)
[2021-04-06] MEDS: Carbidopa/Levodopa 25-100 MG Tab PO SCH ×2 (09:48→20:19)
[2021-04-06] MEDS: Cyanocobalamin (Vitamin B12) 1,000 MCG Tab PO SCH (09:48)
[2021-04-06] MEDS: predniSONE 5 MG Tab PO SCH (09:48)
[2021-04-06] MEDS: Folic Acid 1 MG Tab PO SCH (09:49)
[2021-04-06] MEDS: Nystatin Crm 15 GM Tube TOP SCH ×3 (09:49→20:19)
--- NOTE | 2021-04-06 12:04 | PCM.PN ---
- General Info Date of Service: 04/06/21 Subjective Update: No acute events overnight. Patient reports he slept fairly well. Strength is slowly improving. Appetite has been decent. Minimal pain in the left groin today. Still having difficulty getting out of the chair but once he is up he is able to move around okay. Plan is for him to go to the retirement tomorrow. Functional Status: Reports: Pain Controlled, Tolerating Diet - Review of Systems General: Reports: Weakness Neurological: Reports: Tremors - Patient Data Vitals - Most Recent: Last Vital Signs Temp 36.1 C 04/06/21 10:31 Pulse 80 04/06/21 10:31 Resp 16 04/06/21 10:31 BP 144/55 H 04/06/21 10:31 Pulse Ox 98 04/06/21 10:31 Weight - Most Recent: 64.41 kg I&O - Last 24 Hours: Intake & Output 04/05/21 04/06/21 04/06/21 22:59 06:59 14:59 Intake Total 320 Output Total 700 450 Balance -380 -450 Lab Results Last 24 Hours: Laboratory Results - last 24 hr 04/06/21 04/06/21 04/06/21 Range/Units 04:10 04:10 08:07 WBC 3.6 L (4.5-11.0) K/uL RBC 3.16 L (4.30-5.90) M/uL Hgb 10.6 L (12.0-15.0) g/dL Hct 30.9 L (40.0-54.0) % MCV 98 (80-98) fL MCH 34 H (27-31) pg MCHC 34 (32-36) % Plt Count 30 L (150-400) K/uL Neut % (Auto) 47.5 (36-66) % Lymph % (Auto) 30.6 (24-44) % Zavala % (Auto) 11.2 H (2-6) % Eos % (Auto) 10.4 H (2-4) % Baso % (Auto) 0.3 (0-1) % Percent Retic 0.8 (0.5-1.5) % Lactate Dehydrogenase 226 (85-227) U/L Vitamin B12 200 (193-986) pg/ml Folate 13.1 (8.6-58.9) ng/ml Bran Results Last 24 Hours: Microbiology 03/31/21 18:54 Aerobic Blood Culture - Final Blood - Arm, Right NO GROWTH AFTER 5 DAYS Anaerobic Blood Culture - Final NO GROWTH AFTER 5 DAYS 03/31/21 18:50 Aerobic Blood Culture - Final Blood - Arm, Left NO GROWTH AFTER 5 DAYS Anaerobic Blood Culture - Final NO GROWTH AFTER 5 DAYS Med Orders - Current: Current Medications Acetaminophen (Acetaminophen 325 Mg Tab) 650 mg PO Q4H PRN PRN Reason: Pain (Mild 1-3)/fever Albuterol (Albuterol 0.083% 2.5 Mg/3 Ml Neb Soln) 2.5 mg NEB Q4H PRN PRN Reason: Shortness Of Breath/wheezing Carbidopa/Levodopa (Carbidopa/Levodopa 25-100 Mg Tab) 1 tab PO BID [facility] Last Admin: 04/06/21 09:48 Dose: 1 tab Documented by: Cefdinir (Cefdinir 300 Mg Cap) 300 mg PO BID [facility] Last Admin: 04/06/21 09:48 Dose: 300 mg Documented by: Cyanocobalamin (Cyanocobalamin (Vitamin B12) 1,000 Mcg Tab) 1,000 mcg PO DAILY [facility] Last Admin: 04/06/21 09:48 Dose: 1,000 mcg Documented by: Cyclobenzaprine HCl (Cyclobenzaprine 10 Mg Tab) 10 mg PO BEDTIME PRN PRN Reason: Cramping Last Admin: 03/31/21 23:01 Dose: 10 mg Documented by: Docusate Sodium (Docusate Sodium 100 Mg Cap) 200 mg PO DAILY PRN PRN Reason: Constipation Last Admin: 04/05/21 09:12 Dose: 200 mg Documented by: Folic Acid (Folic Acid 1 Mg Tab) 1 mg PO DAILY [facility] Last Admin: 04/06/21 09:49 Dose: 1 mg Documented by: Magnesium Hydroxide (Magnesium Hydroxide 400 Mg/5 Ml Susp 30 Ml Cup) 30 ml PO BID PRN PRN Reason: Constipation Last Admin: 04/04/21 18:47 Dose: 30 ml Documented by: Melatonin (Melatonin 3 Mg Tab) 6 mg PO BEDTIME PRN PRN Reason: Insomnia Metoprolol Succinate (Metoprolol Succinate 25 Mg Tab.Er) 25 mg PO DAILY [facility] Last Admin: 04/06/21 09:48 Dose: 25 mg Documented by: Morphine Sulfate (Morphine 2 Mg/Ml Syringe) 2 mg IVPUSH Q2H PRN PRN Reason: Pain (severe 7-10) Nystatin (Nystatin Susp 100,000 Unit/Ml 5 Ml Ud Cup) 5 ml PO QID [facility] Last Admin: 04/06/21 09:49 Dose: 5 ml Documented by: Nystatin (Nystatin Crm 15 Gm Tube) 0 gm TOP TID [facility] Last Admin: 04/06/21 09:49 Dose: 1 applic Documented by: Ondansetron HCl (Ondansetron 4 Mg Tab.Dis) 4 mg PO Q6H PRN PRN Reason: Nausea able to take PO Ondansetron HCl (Ondansetron 4 Mg/2 Ml Sdv) 4 mg IV Q4H PRN PRN Reason: Nausea/Vomiting Oxycodone HCl (Oxycodone 5 Mg Tab) 5 mg PO Q4H PRN PRN Reason: Pain (moderate 4-6) Pantoprazole Sodium (Pantoprazole 40 Mg Tab.Cr) 40 mg PO BEDTIME [facility] Last Admin: 04/05/21 20:17 Dose: 40 mg Documented by: Prednisone (Prednisone 5 Mg Tab) 2.5 mg PO DAILY@0800 [facility] Last Admin: 04/06/21 09:48 Dose: 2.5 mg Documented by: Discontinued Medications Albuterol/Ipratropium (Albuterol/Ipratropium 3.0-0.5 Mg/3 Ml Neb Soln) 3 ml NEB QID PRN PRN Reason: Shortness Of Breath/wheezing Bisacodyl (Bisacodyl 10 Mg Supp) 10 mg RECTAL ONETIME ONE Stop: 04/05/21 08:58 Last Admin: 04/05/21 09:12 Dose: 10 mg Documented by: Cholecalciferol (Cholecalciferol (Vitamin D3) 50,000 Unit Cap) 50,000 unit PO ONETIME ONE Stop: 04/05/21 13:01 Last Admin: 04/05/21 13:10 Dose: 50,000 unit Documented by: Diphenhydramine HCl (Diphenhydramine 50 Mg/Ml Sdv) 25 mg IVPUSH ONETIME ONE Stop: 03/31/21 20:48 Last Admin: 03/31/21 21:18 Dose: 25 mg Documented by: Diphenhydramine HCl (Diphenhydramine 50 Mg/Ml Sdv) Confirm Administered Dose 50 mg .ROUTE .STK-MED ONE Stop: 03/31/21 20:50 Last Admin: 03/31/21 21:08 Dose: Not Given Documented by: Docusate Sodium (Docusate Sodium 100 Mg Cap) 100 - 200 mg PO DAILY PRN PRN Reason: Constipation Enoxaparin Sodium (Enoxaparin 30 Mg/0.3 Ml Syringe) 30 mg SUBCUT DAILY [facility] Fluconazole (Fluconazole 100 Mg Tab) 100 mg PO ONETIME ONE Stop: 03/31/21 20:33 Last Admin: 03/31/21 21:13 Dose: 100 mg Documented by: Fluconazole (Fluconazole 100 Mg Tab) 100 mg PO Q24H [facility] Last Admin: 04/04/21 17:16 Dose: 100 mg Documented by: Sodium Chloride (Normal Saline) 1,000 mls @ 500 mls/hr IV ASDIRECTED [facility] Last Admin: 03/31/21 16:50 Dose: 500 mls/hr Documented by: Sodium Chloride (Normal Saline) Confirm Administered Dose 50 mls @ as directed .ROUTE .STK-MED ONE Stop: 03/31/21 18:53 Last Admin: 03/31/21 19:04 Dose: Not Given Documented by: Vancomycin HCl 1 gm/ Sodium (Chloride) 250 mls @ 166.667 mls/hr IV ONETIME ONE Stop: 03/31/21 20:29 Last Admin: 03/31/21 19:07 Dose: 166.667 mls/hr Documented by: Sodium Chloride (Normal Saline) 1,000 mls @ 75 mls/hr IV ASDIRECTED [facility] Last Admin: 04/03/21 02:34 Dose: 125 mls/hr Documented by: Fluconazole/Sodium Chloride (100 mg/ Premix) 50 mls @ 100 mls/hr IV Q24H [facility] Last Admin: 04/03/21 17:17 Dose: 100 mls/hr Documented by: Ceftriaxone Sodium 2 gm/ (Sodium Chloride) 50 mls @ 100 mls/hr IV Q24H [facility] Last Admin: 04/03/21 15:55 Dose: 100 mls/hr Documented by: Sodium Chloride (Normal Saline) 70 mls @ 3 mls/sec IV ONETIME ONE Stop: 04/05/21 07:33 Last Admin: 04/05/21 08:05 Dose: 3 mls/sec Documented by: Insulin Human Lispro (Insulin Lispro 100 Unit/Ml 3 Ml Kwikpen) 0 unit SUBCUT QIDACANDBED [facility]; Protocol Last Admin: 04/04/21 12:39 Dose: Not Given Documented by: Iopamidol (Iopamidol 612 Mg/Ml 100 Ml Bottle) 96 ml IV . DIRECTED PRN PRN Reason: RADIOLOGY EXAM Stop: 04/05/21 07:33 Last Admin: 04/05/21 08:04 Dose: 96 ml Documented by: Ketorolac Tromethamine (Ketorolac 30 Mg/Ml Sdv) 30 mg IVPUSH Q6H PRN PRN Reason: Pain (moderate 4-6) Methylprednisolone Sodium Succinate (Methylprednisolone Sodium Succinate 125 Mg/2 Ml Sdv) 62.5 mg IVPUSH ONETIME ONE Stop: 03/31/21 20:56 Last Admin: 03/31/21 21:19 Dose: 62.5 mg Documented by: Nystatin (Nystatin Topical Powder 15 Gm Bottle) 0 gm TOP TID [facility] Last Admin: 04/04/21 10:21 Dose: 1 applic Documented by: Pantoprazole Sodium (Pantoprazole 40 Mg Vial) 40 mg IV BEDTIME [facility] Last Admin: 03/31/21 21:21 Dose: 40 mg Documented by: Sodium Chloride (Sodium Chloride 0.9% 10 Ml Syringe) 10 ml FLUSH ONETIME PRN PRN Reason: PER RADIOLOGY PROTOCOL Stop: 04/05/21 07:33 Last Admin: 04/05/21 08:05 Dose: 10 ml Documented by: Vancomycin HCl (Vancomycin 1 Gm Sdv) 1 gm IV .PHARMACY TO DOSE [facility] - Exam Quality Assessment: No: Supplemental Oxygen General: Alert, Oriented, Cooperative, No Acute Distress Lungs: Normal Respiratory Effort GI/Abdominal Exam: Soft, No Distention Extremities: No Pedal Edema Skin: Warm, Dry Neurological: Other (Parkinson's tremor of hands) Psy/Mental Status: Alert, Normal Affect - Patient Data Lab Results Last 24 hrs: Laboratory Results - last 24 hr 04/06/21 04/06/21 04/06/21 Range/Units 04:10 04:10 08:07 WBC 3.6 L (4.5-11.0) K/uL RBC 3.16 L (4.30-5.90) M/uL Hgb 10.6 L (12.0-15.0) g/dL Hct 30.9 L (40.0-54.0) % MCV 98 (80-98) fL MCH 34 H (27-31) pg MCHC 34 (32-36) % Plt Count 30 L (150-400) K/uL Neut % (Auto) 47.5 (36-66) % Lymph % (Auto) 30.6 (24-44) % Zavala % (Auto) 11.2 H (2-6) % Eos % (Auto) 10.4 H (2-4) % Baso % (Auto) 0.3 (0-1) % Percent Retic 0.8 (0.5-1.5) % Lactate Dehydrogenase 226 (85-227) U/L Vitamin B12 200 (193-986) pg/ml Folate 13.1 (8.6-58.9) ng/ml Result Diagrams: 04/06/21 08:07 04/04/21 05:00 Bran Results Last 24 hrs: Microbiology 03/31/21 18:54 Aerobic Blood Culture - Final Blood - Arm, Right NO GROWTH AFTER 5 DAYS Anaerobic Blood Culture - Final NO GROWTH AFTER 5 DAYS 03/31/21 18:50 Aerobic Blood Culture - Final Blood - Arm, Left NO GROWTH AFTER 5 DAYS Anaerobic Blood Culture - Final NO GROWTH AFTER 5 DAYS Sepsis Event Note - Evaluation Sepsis Screening Result: No Definite Risk - Focused Exam Vital Signs: Vital Signs Temp Pulse Pulse Resp BP BP Pulse Ox 04/06/21 10:31 36.1 C 80 16 144/55 H 98 04/06/21 09:48 68 157/66 H 04/06/21 07:00 35.9 C L 69 16 157/66 H 97 04/06/21 02:15 36.3 C 66 18 142/69 H 96 - Problem List Review Problem List Initiated/Reviewed/Updated: Yes - My Orders Last 24 Hours: My Active Orders 04/06/21 09:00 Cyanocobalamin (Vitamin B12) [Vitamin B12] 1,000 mcg PO DAILY 04/06/21 10:36 CORONAVIRUS COVID-19, TIN Routine 04/07/21 05:00 CBC W/O DIFF,HEMOGRAM [HEME] Timed (1) - Plan Plan:: ASSESSMENT AND PLAN - Erysipelas secondary to intertrigo-failed outpatient topical antifungal/antibiotic treatment. Steadily improving with minimal residual inflammation in the left groin fold. 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 This is highly suspicious for renal cell carcinoma. -Physical therapy to improve strength and endurance -Outpatient follow-up to consider resection versus transition to hospice Pancytopenia-laboratory work-up so far has been unremarkable other than a low B12 level which could explain things. Peripheral smear still pending. No radiologic evidence for lymphoma at this time. LDH was normal. Reticular site count is low suggesting underproduction. -Supplement B12 -Follow-up peripheral smear -Recheck levels tomorrow and again next week Soft tissue mass in the right scrotum-CT suggest this is a fat-containing hernia. -Consider outpatient surgical follow-up Diabetes mellitus-diet controlled, last HgbA1c 5.7. -discontinue sliding scale insulin and Accu-Cheks Parkinson's Disease-complicated by generalized weakness as well as some swallowing difficulties. He may be progressing close to the end stage of his disease. -continue outpatient medications MAINTENANCE ISSUES -DVT prophylaxis: SCDs -GI prophylaxis: PPI -Galindo catheter: Not indicated -Nutrition: Mechanical soft DISPOSITION-anticipate [facility] to the [facility] for subacute rehab after the hospital stay, likely tomorrow if stable overnight Neptali Bautista MD
--- NOTE | 2021-04-06 15:28 | PCM.DCSUM1 ---
Discharge Summary - Hospital Course Brief History: 80-year-old male with Parkinson's disease who presented with weakness, fatigue and a rash in his groin. He was admitted for management of cellulitis and likely intertrigo that had failed outpatient management. Diagnosis: Stroke: No - Discharge Data Discharge Date: 04/07/21 Discharge Disposition: DC/Tfer to SNF 03 Condition: Fair - Referral to Home Health Primary Care Physician: PCP None - Discharge Diagnosis/Problem(s) (1) Erysipelas SNOMED Code(s): 53174143 ICD Code: A46 - ERYSIPELAS Status: Acute Current Visit: Yes (2) Cellulitis of groin, left SNOMED Code(s): 75971464 ICD Code: L03.314 - CELLULITIS OF GROIN Status: Acute Priority: High Current Visit: Yes (3) Parkinson disease SNOMED Code(s): 45151513 ICD Code: G20 - PARKINSON'S DISEASE Status: Chronic Priority: High Current Visit: Yes (4) Diabetes type 2, controlled SNOMED Code(s): 62057848, 613189572 ICD Code: E11.9 - TYPE 2 DIABETES MELLITUS WITHOUT COMPLICATIONS Status: Chronic Priority: Low Current Visit: Yes Qualifiers: Diabetes mellitus termite treater insulin use: without termite treater use Diabetes mellitus complication status: without complication Qualified Code(s): E11.9 - Type 2 diabetes mellitus without complications (5) Rheumatoid arthritis SNOMED Code(s): 73127448 ICD Code: M06.9 - RHEUMATOID ARTHRITIS, UNSPECIFIED Status: Chronic Current Visit: No Qualifiers: Rheumatoid arthritis location: multiple sites Rheumatoid factor presence: unspecified presence Qualified Code(s): M06.9 - Rheumatoid arthritis, unspecified - Patient Summary/Data Consults: Consultations 03/31/21 20:32 Consult to Wound Care Services [CONS] Routine Comment: Physician Instructions: Reason for Consult: left groin and scrotum cellultis 04/01/21 10:48 Consult to Physical Therapy [PT Evaluation and Treatment] [CONS] Routine Please Evaluate and Treat. PT Reason for Consult: weakness Pending Discharge: home Discharge Disposition: Home This query below is only for informational purposes and is not editable. Admission Diagnosis/Problem: Cellulitis of left groin Hospital Course: Jose presented to the emergency room with weakness, fatigue and a rash involving both sides of the groin with the left side affected more than the right. Work-up in the emergency room suggested cellulitis probably secondary to intertrigo. This had been worsening despite his outpatient management. The patient was too weak to be safe for outpatient management. Also noted at the time of admission was a soft tissue mass in the scrotum. He was started on broad-spectrum antibiotics to cover the cellulitis but unfortunately had a reaction to the vancomycin. This was discontinued in favor of ceftriaxone. He had a scrotal ultrasound the day after admission which showed a heterogenous mass but no definitive diagnosis was obtained at this time. Aggressive wound care was performed for both groin wounds as well as the left axilla which had some intertrigo and possibly some cellulitis as well. Over the next couple of days we did see steady improvement in the cellulitis and wounds. For the possible scrotal mass we did perform a CT scan of the abdomen and pelvis and this showed a hernia extending down into the scrotum which was fat-containing. This does not bother the patient so we did not urgently consult the surgical services. The patient felt that since it was not symptomatic he would not have surgery to manage it at this time anyway. Incidentally noted on the CT scan was a solid mass on the inferior pole of the left kidney concerning for renal cell cancer. This finding was discussed with the patient as well as his [id number]. At this time he is contemplating whether or not he would go through a surgical resection if it was recommended. He has been steadily improving with regard to the cellulitis and groin wounds. The right groin is nearly back to normal and the left axilla is back to normal. The left groin fold is still mildly erythematous but dramatically improved. We have been utilizing nystatin cream to help with this. He is making progress with his strength but continues to be weak. The plan is for him to go to the shelter for subacute rehab. He may be transitioning to an assisted living type facility with his after his rehab stay. After his rehabilitation he will consider whether or not he will seek urology and/or oncology follow-up for the suspected renal cell cancer. Also of note during the hospital stay was a pancytopenia with the white blood cell count and platelets affected to the greatest extent. We did send a peripheral smear to pathology and this is pending at the time of discharge. His reticulocyte count was low and his vitamin B12 was quite low and I suspect that he has a vitamin B12 deficiency leading to the pancytopenia. His LDH was normal and there is no evidence for hemolysis. No lymphadenopathy was noted on available scans. We did start him on a B12 supplementation and I think rechecking his levels next week should give us an idea if he is responding. The peripheral smear will need to be followed up after hospital discharge. His white count is slightly higher than it had been the day prior at the time of discharge, his hemoglobin is stable and his platelet level is around 30 but stable. - Patient Instructions Diet: Regular Diet as Tolerated, Mechanical Soft Activity: As Tolerated Showering/Bathing: May Shower Other/Special Instructions: 1. Referral to Physical and Occupational Therapy - strengthening and ADLs in the setting of acute on chronic weakness with chronic Parkinson's disease. 2. CODE STATUS -DNR/DNI. 3. Recheck CBC without differential next week - follow-up pancytopenia - Discharge Plan *PRESCRIPTION DRUG MONITORING PROGRAM REVIEWED*: Not Applicable *COPY OF PRESCRIPTION DRUG MONITORING REPORT IN PATIENT JO ANN: Not Applicable Prescriptions/Med Rec: Nystatin [Nystatin Crm] 1 gm TOP TID #2 tube Acetaminophen [Tylenol] 650 mg PO Q4H PRN #100 tablet PRN Reason: Pain (Mild 1-3)/fever Cyanocobalamin (Vitamin B12) [Vitamin B12] 1,000 mcg PO DAILY #30 tablet Home Medications: Home Meds Cyclobenzaprine [Flexeril] 10 mg PO BEDTIME PRN 05/06/14 [History] Metoprolol Succinate [Toprol XL 50mg] 25 mg PO DAILY 05/06/14 [History] Albuterol [Proair HFA] 2 inh PO Q4HR PRN 08/23/16 [History] Folic Acid 1 mg PO DAILY 08/23/16 [History] Methotrexate Sodium [Methotrexate] 7 tab PO .EVERY 7 DAYS 08/23/16 [History] Docusate Sodium [Colace] 100 - 200 mg PO DAILY PRN 08/25/16 [History] Carbidopa/Levodopa [Sinemet 25-100 mg Tablet] 1 each PO BID #14 tablet 06/02/20 [Rx] predniSONE [Prednisone] 2.5 mg PO DAILY 06/02/20 [History] Acetaminophen [Tylenol] 650 mg PO Q4H PRN #100 tablet 04/06/21 [Rx] Cyanocobalamin (Vitamin B12) [Vitamin B12] 1,000 mcg PO DAILY #30 tablet 04/06/21 [Rx] Nystatin [Nystatin Crm] 1 gm TOP TID #2 tube 04/06/21 [Rx] Oxygen Therapy Mode: Room Air Patient Handouts: Cellulitis, Adult, [id number] - Discharge Summary/Plan Comment DC Time >30 min.: Yes (40-new [facility] discharge ) - Patient Data Vitals - Most Recent: Last Vital Signs Temp 36.2 C 04/06/21 14:40 Pulse 67 04/06/21 14:40 Resp 16 04/06/21 14:40 BP 119/49 L 04/06/21 14:40 Pulse Ox 96 04/06/21 14:40 Weight - Most Recent: 64.41 kg I&O - Last 24 hours: Intake & Output 04/06/21 04/06/21 04/06/21 06:59 14:59 22:59 Output Total 450 Balance -450 Lab Results - Last 24 hrs: Laboratory Results - last 24 hr 04/06/21 04/06/21 04/06/21 Range/Units 04:10 04:10 08:07 WBC 3.6 L (4.5-11.0) K/uL RBC 3.16 L (4.30-5.90) M/uL Hgb 10.6 L (12.0-15.0) g/dL Hct 30.9 L (40.0-54.0) % MCV 98 (80-98) fL MCH 34 H (27-31) pg MCHC 34 (32-36) % Plt Count 30 L (150-400) K/uL Neut % (Auto) 47.5 (36-66) % Lymph % (Auto) 30.6 (24-44) % Divide % (Auto) 11.2 H (2-6) % Eos % (Auto) 10.4 H (2-4) % Baso % (Auto) 0.3 (0-1) % Percent Retic 0.8 (0.5-1.5) % Lactate Dehydrogenase 226 (85-227) U/L Vitamin B12 200 (193-986) pg/ml Folate 13.1 (8.6-58.9) ng/ml LEANN Results - Last 24 hrs: Microbiology 03/31/21 18:54 Aerobic Blood Culture - Final Blood - Arm, Right NO GROWTH AFTER 5 DAYS Anaerobic Blood Culture - Final NO GROWTH AFTER 5 DAYS 03/31/21 18:50 Aerobic Blood Culture - Final Blood - Arm, Left NO GROWTH AFTER 5 DAYS Anaerobic Blood Culture - Final NO GROWTH AFTER 5 DAYS Med Orders - Current: Current Medications Acetaminophen (Acetaminophen 325 Mg Tab) 650 mg PO Q4H PRN PRN Reason: Pain (Mild 1-3)/fever Albuterol (Albuterol 0.083% 2.5 Mg/3 Ml Neb Soln) 2.5 mg NEB Q4H PRN PRN Reason: Shortness Of Breath/wheezing Carbidopa/Levodopa (Carbidopa/Levodopa 25-100 Mg Tab) 1 tab PO BID [facility] Last Admin: 04/06/21 09:48 Dose: 1 tab Documented by: Cefdinir (Cefdinir 300 Mg Cap) 300 mg PO BID [facility] Last Admin: 04/06/21 09:48 Dose: 300 mg Documented by: Cyanocobalamin (Cyanocobalamin (Vitamin B12) 1,000 Mcg Tab) 1,000 mcg PO DAILY [facility] Last Admin: 04/06/21 09:48 Dose: 1,000 mcg Documented by: Cyclobenzaprine HCl (Cyclobenzaprine 10 Mg Tab) 10 mg PO BEDTIME PRN PRN Reason: Cramping Last Admin: 03/31/21 23:01 Dose: 10 mg Documented by: Docusate Sodium (Docusate Sodium 100 Mg Cap) 200 mg PO DAILY PRN PRN Reason: Constipation Last Admin: 04/05/21 09:12 Dose: 200 mg Documented by: Folic Acid (Folic Acid 1 Mg Tab) 1 mg PO DAILY [facility] Last Admin: 04/06/21 09:49 Dose: 1 mg Documented by: Magnesium Hydroxide (Magnesium Hydroxide 400 Mg/5 Ml Susp 30 Ml Cup) 30 ml PO BID PRN PRN Reason: Constipation Last Admin: 04/04/21 18:47 Dose: 30 ml Documented by: Melatonin (Melatonin 3 Mg Tab) 6 mg PO BEDTIME PRN PRN Reason: Insomnia Metoprolol Succinate (Metoprolol Succinate 25 Mg Tab.Er) 25 mg PO DAILY [facility] Last Admin: 04/06/21 09:48 Dose: 25 mg Documented by: Morphine Sulfate (Morphine 2 Mg/Ml Syringe) 2 mg IVPUSH Q2H PRN PRN Reason: Pain (severe 7-10) Nystatin (Nystatin Susp 100,000 Unit/Ml 5 Ml Ud Cup) 5 ml PO QID [facility] Last Admin: 04/06/21 09:49 Dose: 5 ml Documented by: Nystatin (Nystatin Crm 15 Gm Tube) 0 gm TOP TID [facility] Last Admin: 04/06/21 09:49 Dose: 1 applic Documented by: Ondansetron HCl (Ondansetron 4 Mg Tab.Dis) 4 mg PO Q6H PRN PRN Reason: Nausea able to take PO Ondansetron HCl (Ondansetron 4 Mg/2 Ml Sdv) 4 mg IV Q4H PRN PRN Reason: Nausea/Vomiting Oxycodone HCl (Oxycodone 5 Mg Tab) 5 mg PO Q4H PRN PRN Reason: Pain (moderate 4-6) Pantoprazole Sodium (Pantoprazole 40 Mg Tab.Cr) 40 mg PO BEDTIME [facility] Last Admin: 04/05/21 20:17 Dose: 40 mg Documented by: Prednisone (Prednisone 5 Mg Tab) 2.5 mg PO DAILY@0800 [facility] Last Admin: 04/06/21 09:48 Dose: 2.5 mg Documented by: Discontinued Medications Albuterol/Ipratropium (Albuterol/Ipratropium 3.0-0.5 Mg/3 Ml Neb Soln) 3 ml NEB QID PRN PRN Reason: Shortness Of Breath/wheezing Bisacodyl (Bisacodyl 10 Mg Supp) 10 mg RECTAL ONETIME ONE Stop: 04/05/21 08:58 Last Admin: 04/05/21 09:12 Dose: 10 mg Documented by: Cholecalciferol (Cholecalciferol (Vitamin D3) 50,000 Unit Cap) 50,000 unit PO ONETIME ONE Stop: 04/05/21 13:01 Last Admin: 04/05/21 13:10 Dose: 50,000 unit Documented by: Diphenhydramine HCl (Diphenhydramine 50 Mg/Ml Sdv) 25 mg IVPUSH ONETIME ONE Stop: 03/31/21 20:48 Last Admin: 03/31/21 21:18 Dose: 25 mg Documented by: Diphenhydramine HCl (Diphenhydramine 50 Mg/Ml Sdv) Confirm Administered Dose 50 mg .ROUTE .STK-MED ONE Stop: 03/31/21 20:50 Last Admin: 03/31/21 21:08 Dose: Not Given Documented by: Docusate Sodium (Docusate Sodium 100 Mg Cap) 100 - 200 mg PO DAILY PRN PRN Reason: Constipation Enoxaparin Sodium (Enoxaparin 30 Mg/0.3 Ml Syringe) 30 mg SUBCUT DAILY [facility] Fluconazole (Fluconazole 100 Mg Tab) 100 mg PO ONETIME ONE Stop: 03/31/21 20:33 Last Admin: 03/31/21 21:13 Dose: 100 mg Documented by: Fluconazole (Fluconazole 100 Mg Tab) 100 mg PO Q24H [facility] Last Admin: 04/04/21 17:16 Dose: 100 mg Documented by: Sodium Chloride (Normal Saline) 1,000 mls @ 500 mls/hr IV ASDIRECTED [facility] Last Admin: 03/31/21 16:50 Dose: 500 mls/hr Documented by: Sodium Chloride (Normal Saline) Confirm Administered Dose 50 mls @ as directed .ROUTE .STK-MED ONE Stop: 03/31/21 18:53 Last Admin: 03/31/21 19:04 Dose: Not Given Documented by: Vancomycin HCl 1 gm/ Sodium (Chloride) 250 mls @ 166.667 mls/hr IV ONETIME ONE Stop: 03/31/21 20:29 Last Admin: 03/31/21 19:07 Dose: 166.667 mls/hr Documented by: Sodium Chloride (Normal Saline) 1,000 mls @ 75 mls/hr IV ASDIRECTED [facility] Last Admin: 04/03/21 02:34 Dose: 125 mls/hr Documented by: Fluconazole/Sodium Chloride (100 mg/ Premix) 50 mls @ 100 mls/hr IV Q24H [facility] Last Admin: 04/03/21 17:17 Dose: 100 mls/hr Documented by: Ceftriaxone Sodium 2 gm/ (Sodium Chloride) 50 mls @ 100 mls/hr IV Q24H [facility] Last Admin: 04/03/21 15:55 Dose: 100 mls/hr Documented by: Sodium Chloride (Normal Saline) 70 mls @ 3 mls/sec IV ONETIME ONE Stop: 04/05/21 07:33 Last Admin: 04/05/21 08:05 Dose: 3 mls/sec Documented by: Insulin Human Lispro (Insulin Lispro 100 Unit/Ml 3 Ml Kwikpen) 0 unit SUBCUT QIDACANDBED [facility]; Protocol Last Admin: 04/04/21 12:39 Dose: Not Given Documented by: Iopamidol (Iopamidol 612 Mg/Ml 100 Ml Bottle) 96 ml IV . DIRECTED PRN PRN Reason: RADIOLOGY EXAM Stop: 04/05/21 07:33 Last Admin: 04/05/21 08:04 Dose: 96 ml Documented by: Ketorolac Tromethamine (Ketorolac 30 Mg/Ml Sdv) 30 mg IVPUSH Q6H PRN PRN Reason: Pain (moderate 4-6) Methylprednisolone Sodium Succinate (Methylprednisolone Sodium Succinate 125 Mg/2 Ml Sdv) 62.5 mg IVPUSH ONETIME ONE Stop: 03/31/21 20:56 Last Admin: 03/31/21 21:19 Dose: 62.5 mg Documented by: Nystatin (Nystatin Topical Powder 15 Gm Bottle) 0 gm TOP TID [facility] Last Admin: 04/04/21 10:21 Dose: 1 applic Documented by: Pantoprazole Sodium (Pantoprazole 40 Mg Vial) 40 mg IV BEDTIME [facility] Last Admin: 03/31/21 21:21 Dose: 40 mg Documented by: Sodium Chloride (Sodium Chloride 0.9% 10 Ml Syringe) 10 ml FLUSH ONETIME PRN PRN Reason: PER RADIOLOGY PROTOCOL Stop: 04/05/21 07:33 Last Admin: 04/05/21 08:05 Dose: 10 ml Documented by: Vancomycin HCl (Vancomycin 1 Gm Sdv) 1 gm IV .PHARMACY TO DOSE [facility]
[2021-04-06 18:09] LABS: BASOS 1 % (Not Estab.); EOS 5 % (Not Estab.); EOS (ABSOLUTE) 0.1 x10E3/uL (0.0-0.4); HEMATOCRIT 29.3 % (37.5-51.0); HEMATOLOGY COMMENTS: Note: (.); LYMPHS 53 % (Not Estab.); LYMPHS (ABSOLUTE) 1.5 x10E3/uL (0.7-3.1); MCH 33.1 pg (26.6-33.0); MCHC 34.1 g/dL (31.5-35.7); MCV 97 fL (79-97); MONOCYTES 4 % (Not Estab.); MONOCYTES(ABSOLUTE) 0.1 x10E3/uL (0.1-0.9); NEUTROPHILS 37 % (Not Estab.); PLATELETS 31 x10E3/uL (150-450); RBC 3.02 x10E6/uL (4.14-5.80); RDW 14.4 % (11.6-15.4); WBC 2.8 x10E3/uL (3.4-10.8)
[2021-04-06] MEDS: Pantoprazole 40 MG Tab.CR PO SCH (20:19)
[2021-04-07] MEDS: Nystatin Susp 100,000 Unit/ML 5 ML UD Cup PO SCH (05:30)
[2021-04-07 07:14] VITALS: BP 169/58
[2021-04-07] MEDS: predniSONE 5 MG Tab PO SCH (08:07)
[2021-04-07] MEDS: Cefdinir 300 MG Cap PO SCH (08:07)
[2021-04-07] MEDS: Folic Acid 1 MG Tab PO SCH (08:08)
[2021-04-07] MEDS: Carbidopa/Levodopa 25-100 MG Tab PO SCH (08:08)
[2021-04-07] MEDS: Cyanocobalamin (Vitamin B12) 1,000 MCG Tab PO SCH (08:08)
[2021-04-07] MEDS: Nystatin Crm 15 GM Tube TOP SCH (08:08)
[2021-04-07 08:09] VITALS: PULSE 78
[2021-04-07] MEDS: Metoprolol Succinate 25 MG Tab.ER PO SCH (08:09)
== END 2021-04-07 09:05 | DRG 607 ==
LOC: JP.ED 15:33 → JP.MS 19:02
PROVIDERS: ADMIT Internal Medicine; ATTEND Internal Medicine
DX: L30.4 Erythema intertrigo (principal); L03.314 Cellulitis of groin; R53.1 Weakness; D61.818 Other pancytopenia; C64.2 Malignant neoplasm of left kidney, except renal pelvis; L02.214 Cutaneous abscess of groin; A46 Erysipelas; M06.9 Rheumatoid arthritis, unspecified; N50.89 Other specified disorders of the male genital organs; H91.90 Unspecified hearing loss, unspecified ear; Z66 Do not resuscitate; Z20.822 Contact with and (suspected) exposure to COVID-19; H54.7 Unspecified visual loss; E78.00 Pure hypercholesterolemia, unspecified; G47.30 Sleep apnea, unspecified; K59.09 Other constipation; I10 Essential (primary) hypertension; G20 Parkinson's disease; N49.2 Inflammatory disorders of scrotum; R32 Unspecified urinary incontinence; Z88.2 Allergy status to sulfonamides; Z88.1 Allergy status to other antibiotic agents; Z91.011 Allergy to milk products; Z91.09 Other allergy status, other than to drugs and biological substances; Z88.8 Allergy status to other drugs, medicaments and biological substances; Z79.52 Long term (current) use of systemic steroids; Z79.899 Other long term (current) drug therapy; Z85.828 Personal history of other malignant neoplasm of skin; Z98.49 Cataract extraction status, unspecified eye
CPT/HCPCS: 36415; 80053; 81001; 83605; 85025; 87040 ×2; 99284; 99285; J7030; 74177; 74177-26; 76870; 76870-26; 80048; 82607; 82746; 82947; 83615; 85027; 85045; 85060; 87070; 87077; 87186; 87205; 97110-GP; 97162-GP; 97530-GP; 97535-GP; A9270-GY; C9113; J0696; J1200; J1450; J1815; J2930; J3370; J7050; J7512; Q9967; U0002

== ENCOUNTER 2021-06-10 02:25 | Emergency (ER) | payer MEDICARE, BC ==
[2021-06-10 02:35] VITALS: BP 159/78; PULSE 68
--- NOTE | 2021-06-10 02:51 | EDM.PDOC ---
ED HPI GENERAL MEDICAL PROBLEM - General Chief Complaint: Back Pain or Injury Stated Complaint: FALL VIA NORTH Time Seen by Provider: 06/10/21 02:40 Source of Information: Reports: Patient, EMS History Limitations: Reports: No Limitations - History of Present Illness INITIAL COMMENTS - FREE TEXT/NARRATIVE: 80-year-old male in a high level assisted living center has been falling frequently, tonight he lost his balance and fell backwards and has an increase in mid back pain. No shortness of breath. He has numerous bruises on his arms from frequent falls. Denies abdominal pain or head injury. He was sent in for back evaluation. Onset: Sudden Duration: Hour(s): (Within the last few hours) Location: Reports: Back (Mid back) Associated Symptoms: Reports: Weakness. Denies: Shortness of Breath Back Pain Score (Numeric/FACES): 10 - Related Data Allergies Allergy/AdvReac Type Severity Reaction Status Date / Time simvastatin Allergy Muscle Verified 06/10/21 02:29 Aches [id number]-Ekp Reductase Allergy Cannot Verified 06/10/21 02:29 Inhibitor Remember sulfamethoxazole Allergy Cannot Verified 06/10/21 02:29 [From Remember Sulfamethoxazole-Trimethoprim] trimethoprim Allergy Cannot Verified 06/10/21 02:29 [From Remember Sulfamethoxazole-Trimethoprim] vancomycin Allergy Hives Verified 06/10/21 02:29 cats Allergy Unknown not known Uncoded 06/10/21 02:29 cow milk Allergy Unknown unknown Uncoded 06/10/21 02:29 dogs Allergy Unknown unknown Uncoded 06/10/21 02:29 environmental Allergy Unknown unknown Uncoded 06/10/21 02:29 horses Allergy Unknown unknown Uncoded 06/10/21 02:29 Home Meds: Home Meds Metoprolol Succinate [Toprol XL 50mg] 25 mg PO DAILY 05/06/14 [History] Folic Acid 1 mg PO DAILY 08/23/16 [History] Methotrexate Sodium [Methotrexate] 2.5 tab PO .EVERY 7 DAYS 08/23/16 [History] Docusate Sodium [Colace] 100 - 200 mg PO DAILY PRN 08/25/16 [History] Carbidopa/Levodopa [Sinemet 25-100 mg Tablet] 1 each PO BID #14 tablet 06/02/20 [Rx] predniSONE [Prednisone] 2.5 mg PO DAILY 06/02/20 [History] Acetaminophen [Tylenol] 650 mg PO Q4H PRN #100 tablet 04/06/21 [Rx] Cyanocobalamin (Vitamin B12) [Vitamin B12] 1,000 mcg PO DAILY #30 tablet 04/06/21 [Rx] Nystatin [Nystatin Crm] 1 gm TOP TID #2 tube 04/06/21 [Rx] Bacitracin [Bacitracin Oint 1 GM] 1 dose TOP DAILY 06/10/21 [History] Past Medical History HEENT History: Reports: Hard of Hearing, Impaired Vision Cardiovascular History: Reports: High Cholesterol, Hypertension Respiratory History: Reports: Sleep Apnea Other Respiratory History: has cpap does not use Gastrointestinal History: Reports: Chronic Constipation, Hemorrhoids, Other (See Below) Other Gastrointestinal History: "yellow jaundice" at age 3yo Genitourinary History: Reports: Urinary Incontinence Musculoskeletal History: Reports: RA Neurological History: Reports: Parkinson's Immunologic History: Reports: None Oncologic (Cancer) History: Reports: Other (See Below) Other Oncologic History: skin cancer Dermatologic History: Reports: Other (See Below) Other Dermatologic History: skin cancer - Infectious Disease History Infectious Disease History: Reports: Chicken Pox - Past Surgical History Head Surgeries/Procedures: Reports: None HEENT Surgical History: Reports: Cataract Surgery Other HEENT Surgeries/Procedures: wears glasses Cardiovascular Surgical History: Reports: None Respiratory Surgical History: Reports: None GI Surgical History: Reports: Colonoscopy, Hernia, Inguinal Neurological Surgical History: Reports: None Oncologic Surgical History: Reports: None Dermatological Surgical History: Reports: Skin Biopsy Social & Family History - Family History Family Medical History: Unobtainable - Tobacco Use Tobacco Use Status *Q: Never Tobacco User Second Hand Smoke Exposure: No - Caffeine Use Caffeine Use: Reports: None - Recreational Drug Use Recreational Drug Use: No - Living Situation & Occupation Living situation: Reports: with Significant Other, with Family (lives at home with family) Occupation: Retired (lives with [employer] and has adult Step-children. No children of his own.) ED ROS GENERAL - Review of Systems Review Of Systems: See Below Constitutional: Denies: Fever, Chills HEENT: Denies: Vision Change Respiratory: Denies: Shortness of Breath GI/Abdominal: Denies: Nausea, Vomiting Musculoskeletal: Reports: Back Pain Skin: Reports: Bruising Neurological: Reports: Weakness, Other (Significant dementia) ED EXAM,LOWER BACK PAIN/INJURY - Physical Exam Exam: See Below Exam Limited By: No Limitations General Appearance: Alert, No Apparent Distress (Very little if any pain when still, marked increase in pain with range of motion or movement centered in the middle of his back) Head: Atraumatic Neck: Non-Tender Respiratory/Chest: No Respiratory Distress, Lungs Clear GI/Abdominal: Soft, Tender (Reacts with some mild diffuse discomfort but no focal tenderness) Back Exam: Vertebral Tenderness (Patient did react with tenderness to palpation or percussion of the mid thoracic spine. There was no objective visual evidence of trauma such as bruising or deformity) Extremities: Other (Bruising on his arms, no pain with movement of the hips or knees, no trauma to the lower extremities) Neurological: Alert Psychiatric: Normal Affect, Normal Mood Skin Exam: Warm, Dry, Other (Bruising on his arms, superficial skin tear on the right elbow) Course - Vital Signs Last Recorded V/S: Last Vital Signs Temp 97.3 F 06/10/21 02:35 Pulse 68 06/10/21 02:35 Resp 18 06/10/21 02:35 BP 159/78 H 06/10/21 02:35 Pulse Ox 97 06/10/21 02:35 - Orders/Labs/Meds Meds: Medications Discontinued Medications Generic Name Dose Route Start Last Admin Trade Name Bandar PRN Reason Stop Dose Admin Hydrocodone Bitart/Acetaminophen 1 tab 06/10/21 04:21 06/10/21 04:29 Acetaminophen/Hydrocodone 325-5 Mg Tab PO 06/10/21 04:22 1 tab ONETIME ONE Administration - Re-Assessments/Exams Free Text/Narrative Re-Assessment/Exam: 06/10/21 02:[address] spine was ordered. This will be done without contrast. 06/10/21 04:22 CT scan confirmed a stable acute endplate fracture of L1. Patient was given 1 oral hydrocodone and will be sent back to [facility] assisted living with 20 additional doses to use every 6-8 hours as needed. Increase activity as tolerated, he can recheck with his primary next week if not improving or return sooner if not tolerating the injury or getting relief with the pain medication. Departure - Departure Time of Disposition: 08:05 Disposition: DC/Tfer to [facility] Clinical Impression: Fracture, lumbar vertebra, compression Qualifiers: Encounter type: initial encounter Lumbar vertebra fracture level: L1 Qualified Code(s): S32.010A - Wedge compression fracture of first lumbar vertebra, initial encounter for closed fracture - Discharge Information Instructions: Spinal Compression Fracture Referrals: PCP,None [Primary Care Provider] - Forms: ED Department Discharge Care Plan Goals: Continue current medications but add 1-2 hydrocodone with Tylenol every 6-8 hours for extra pain control. Continue activity as tolerated and recheck in 1 to 2 weeks if not improving satisfactorily. Return anytime if worsening despite treatment or not getting enough pain relief. Sepsis Event Note (ED) - Evaluation Sepsis Screening Result: No Definite Risk
--- NOTE | 2021-06-10 03:56 | CRLCT ---
For Patients: As a result of the Century Cures Act, medical imaging exams and procedure reports are released immediately into your electronic medical record. You may view this report before your referring provider. If you have questions, please contact your health care provider. INDICATION: Pain after fall TECHNIQUE: CT thoracic spine without contrast. COMPARISON: None. FINDINGS: Vertebral alignment: Increased kyphosis of the thoracic spine. Vertebrae: Osteopenia. Acute inferior endplate fracture of L1 with minimal height loss. There is an old T12 inferior endplate fracture with approximately 20 percent anterior vertebral height loss. Discs and facet joints: Moderate multilevel degenerative disc and facet changes. Extraspinal findings: Coronary artery calcifications. IMPRESSION: Acute inferior endplate fracture of L1 with minimal height loss. Old T12 fracture. Coronary artery disease. Please note that all CT scans at this facility use dose modulation, iterative reconstruction, and/or weight-based dosing when appropriate to reduce radiation dose to as low as reasonably achievable. Dictated by Sharron Ward MD @ 06/10/2021 3:55:49 AM (Electronically Signed)
[2021-06-10] MEDS ORDERED: Acetaminophen/HYDROcodone 325-5 MG Tab PO ONE (04:21)
== END 2021-06-10 08:05 ==
LOC: JP.ED 02:25
DX: S32.010A Wedge compression fracture of first lumbar vertebra, initial encounter for closed fracture (principal); I10 Essential (primary) hypertension; E78.00 Pure hypercholesterolemia, unspecified; Z88.8 Allergy status to other drugs, medicaments and biological substances; Z88.2 Allergy status to sulfonamides; Z88.1 Allergy status to other antibiotic agents; Z91.09 Other allergy status, other than to drugs and biological substances; Z91.011 Allergy to milk products; Z79.899 Other long term (current) drug therapy; W01.0XXA Fall on same level from slipping, tripping and stumbling without subsequent striking against object, initial encounter
CPT/HCPCS: 72128; 99284; A9270

== ENCOUNTER 2021-08-03 16:22 | Emergency (ER) | payer MEDICARE, BC ==
--- NOTE | 2021-08-03 17:01 | EDM.PDOC ---
ED HPI GENERAL MEDICAL PROBLEM - General Chief Complaint: Head Injury Stated Complaint: FALL VIA [place]TH Time Seen by Provider: 08/03/21 16:40 Source of Information: Reports: Patient, EMS, RN Notes Reviewed History Limitations: Reports: Physical Impairment - History of Present Illness INITIAL COMMENTS - FREE TEXT/NARRATIVE: 80-year-old gentleman presents emergency department today following a fall in the assisted living center. He has known Parkinson's disease end-stage communication is difficult, this was an unwitnessed fall. He does present with a large hematoma on his forehead. He does complain of headache complains of pain in his left wrist, otherwise no other complaints at this time - Related Data Allergies Allergy/AdvReac Type Severity Reaction Status Date / Time simvastatin Allergy Muscle Verified 08/03/21 16:29 Aches [id number]-DoT Reductase Allergy Cannot Verified 08/03/21 16:29 Inhibitor Remember [Nsxqkmi-Uxr-Yte Reductase Inhibitor] sulfamethoxazole Allergy Cannot Verified 08/03/21 16:29 [From Remember Sulfamethoxazole-Trimethoprim] trimethoprim Allergy Cannot Verified 08/03/21 16:29 [From Remember Sulfamethoxazole-Trimethoprim] vancomycin Allergy Hives Verified 08/03/21 16:29 cats Allergy Unknown not known Uncoded 08/03/21 16:29 cow milk Allergy Unknown unknown Uncoded 08/03/21 16:29 dogs Allergy Unknown unknown Uncoded 08/03/21 16:29 environmental Allergy Unknown unknown Uncoded 08/03/21 16:29 horses Allergy Unknown unknown Uncoded 08/03/21 16:29 Home Meds: Home Meds Metoprolol Succinate [Toprol XL 50mg] 25 mg PO DAILY 05/06/14 [History] Folic Acid 1 mg PO DAILY 08/23/16 [History] Methotrexate Sodium [Methotrexate] 2.5 tab PO .EVERY 7 DAYS 08/23/16 [History] Docusate Sodium [Colace] 100 - 200 mg PO DAILY PRN 08/25/16 [History] Carbidopa/Levodopa [Sinemet 25-100 mg Tablet] 1 each PO BID #14 tablet 06/02/20 [Rx] predniSONE [Prednisone] 2.5 mg PO DAILY 06/02/20 [History] Acetaminophen [Tylenol] 650 mg PO Q4H PRN #100 tablet 04/06/21 [Rx] Cyanocobalamin (Vitamin B12) [Vitamin B12] 1,000 mcg PO DAILY #30 tablet 04/06/21 [Rx] Nystatin [Nystatin Crm] 1 gm TOP TID #2 tube 04/06/21 [Rx] Bacitracin [Bacitracin Oint 1 GM] 1 dose TOP DAILY 06/10/21 [History] Past Medical History HEENT History: Reports: Hard of Hearing, Impaired Vision Cardiovascular History: Reports: High Cholesterol, Hypertension Respiratory History: Reports: Sleep Apnea Other Respiratory History: has cpap does not use Gastrointestinal History: Reports: Chronic Constipation, Hemorrhoids, Other (See Below) Other Gastrointestinal History: "yellow jaundice" at age 3yo Genitourinary History: Reports: Urinary Incontinence Musculoskeletal History: Reports: RA Neurological History: Reports: Parkinson's Immunologic History: Reports: None Oncologic (Cancer) History: Reports: Other (See Below) Other Oncologic History: skin cancer Dermatologic History: Reports: Other (See Below) Other Dermatologic History: skin cancer - Infectious Disease History Infectious Disease History: Reports: Chicken Pox - Past Surgical History Head Surgeries/Procedures: Reports: None HEENT Surgical History: Reports: Cataract Surgery Other HEENT Surgeries/Procedures: wears glasses Cardiovascular Surgical History: Reports: None Respiratory Surgical History: Reports: None GI Surgical History: Reports: Colonoscopy, Hernia, Inguinal Neurological Surgical History: Reports: None Oncologic Surgical History: Reports: None Dermatological Surgical History: Reports: Skin Biopsy Social & Family History - Family History Family Medical History: Unobtainable - Tobacco Use Tobacco Use Status *Q: Unknown Ever Used Tobacco - Caffeine Use Caffeine Use: Reports: None - Living Situation & Occupation Living situation: Reports: with Significant Other, with Family (lives at home with family) Occupation: Retired (lives with [employer] and has adult Step-children. No children of his own.) ED ROS GENERAL - Review of Systems Review Of Systems: Unable To Obtain Reason Not Obtained: Physical impairment ED EXAM, HEAD INJURY - Physical Exam Exam: See Below Text/Narrative:: Examination of the skeletal system there is no tenderness to the shoulders elbows bilaterally right wrist is nontender he does complain of pain in the left wrist on appreciate any deformity there is no erythema no edema noted radial pulses +2 pelvic rocks is negative the none tenderness at the knees or ankles bilaterally Exam Limited By: Physical Impairment General Appearance: Alert, No Apparent Distress Head: Normocephalic, Scalp Swelling, Scalp Hematoma, Scalp Tenderness Nexus Criteria: No: Posterior, Midline Cervical Tenderness, Evidence of Intoxication, Altered Level of Consciousness, Focal Neurological Deficit, Painful Distraction Injuries Eyes: Bilateral Eye: EOMI, PERRL Nose: Dried Blood Throat/Mouth: Normal Inspection, Normal Lips, Normal Teeth, Normal Gums, Normal Oropharynx, Normal Voice, No Airway Compromise Neck: Non-Tender, Full Range of Motion, Normal Alignment, Normal Inspection Respiratory: No Respiratory Distress, Lungs Clear, Normal Breath Sounds, No Accessory Muscle Use, Chest Non-Tender Cardiovascular: Regular Rate, Rhythm, No Murmur GI/Abdominal Exam: Soft, Non-Tender Course - Vital Signs Last Recorded V/S: Last Vital Signs Temp 98.1 F 08/03/21 16:25 Pulse 74 08/03/21 17:17 Resp 16 08/03/21 17:17 BP 151/75 H 08/03/21 17:17 Pulse Ox 95 08/03/21 17:17 - Orders/Labs/Meds Orders: Active Orders 24 hr Category Date Time Status Max Facial Sinus wo Cont [CT] Stat Exams 08/03/21 16:59 Taken Wrist Comp Min 3V Lt [CR] Stat Exams 08/03/21 16:43 Taken Departure - Departure Time of Disposition: 18:53 Disposition: DC/Tfer to Longterm Care [facility] Condition: Critical Clinical Impression: Subarachnoid hemorrhage following injury Qualifiers: Encounter type: initial encounter Loss of consciousness presence/duration: with LOC of unspecified duration Qualified Code(s): S06.6X9A - Traumatic subarachnoid hemorrhage with loss of consciousness of unspecified duration, initial encounter - Discharge Information Referrals: PCP,None [Primary Care Provider] - Forms: ED Department Discharge Additional Instructions: Comfort care only hospice consult on Sunday Sepsis Event Note (ED) - Evaluation Sepsis Screening Result: No Definite Risk - Focused Exam Vital Signs: Vital Signs Temp Pulse Pulse Resp BP Pulse Ox 08/03/21 17:17 74 16 151/75 H 95 08/03/21 16:25 98.1 F 72 16 156/66 H 95 08/03/21 16:24 97.4 F 74 16 171/91 H 95 - My Orders Last 24 Hours: My Active Orders 08/03/21 16:43 Wrist Comp Min 3V Lt [CR] Stat 08/03/21 16:59 Max Facial Sinus wo Cont [CT] Stat - Assessment/Plan Last 24 Hours: My Active Orders 08/03/21 16:43 Wrist Comp Min 3V Lt [CR] Stat 08/03/21 16:59 Max Facial Sinus wo Cont [CT] Stat Plan: Assessment Acuity = acute Site and laterality = subarachnoid hemorrhage no mass-effect Etiology = secondary to a fall Manifestations = none Location of injury = Home Lab values = CT scan of the head describes the hemorrhage above Plan Called and discussed the case with his power of insurance defense attorney Penny brainstorm recommended comfort care only he is a DNR/DNI and she does have a hospice consult for Sunday. Therefore we agreed to send him back to the [facility] home for comfort care only This note was dictated using [employer] voice recognition software please call with any questions on syntax or grammar.
--- NOTE | 2021-08-03 18:29 | CRLCT ---
For Patients: As a result of the Century Cures Act, medical imaging exams and procedure reports are released immediately into your electronic medical record. You may view this report before your referring provider. If you have questions, please contact your health care provider. INDICATION: Fall. COMPARISON: CT head 11/03/2018. TECHNIQUE: CT of the head without IV contrast. Coronal and sagittal reconstructions are provided. FINDINGS: There is a small amount of hyperdense traumatic subarachnoid hemorrhage layering within temporo-occipital sulci bilaterally (for example series 3 image 36 and series 6, image 70). No mass effect or midline shift. No evidence of acute infarct. Moderate generalized cerebral and cerebellar volume loss with associated ex vacuo dilation of the lateral ventricles. Mild chronic small vessel ischemic disease. Old lacunar infarct right basal ganglia. Stable arachnoid cyst in the posterior fossa. Orbits and extraocular muscles are symmetric. Moderate diffuse paranasal sinus mucosal thickening. The mastoid air cells are clear. No acute fracture identified. Soft tissue swelling overlying the left lateral frontal bone. IMPRESSION: : 1. Small amount of hyperdense traumatic subarachnoid hemorrhage layering within temporo-occipital sulci bilaterally. No mass effect or midline shift. 2. Soft tissue swelling overlying the left lateral frontal bone. 3. Moderate diffuse paranasal sinus mucosal thickening. 4. Findings discussed with Cristian Officer at 6:27 p.m. on 08/03/2021. Please note that all CT scans at this facility use dose modulation, iterative reconstruction, and/or weight-based dosing when appropriate to reduce radiation dose to as low as reasonably achievable. Dictated by Olivia Houser MD @ 08/03/2021 6:27:42 PM (Electronically Signed)
[2021-08-03 19:08] VITALS: BP 127/85; PULSE 86
--- NOTE | 2021-08-03 19:20 | CRLCT ---
For Patients: As a result of the Century Cures Act, medical imaging exams and procedure reports are released immediately into your electronic medical record. You may view this report before your referring provider. If you have questions, please contact your health care provider. INDICATION: Fall TECHNIQUE: CT maxillofacial without contrast. COMPARISON: None FINDINGS: Facial bones: No acute fracture or subluxation. Orbits and globes: Unremarkable. Sinuses: Patchy pansinus mucosal thickening. Soft tissues: Unremarkable. IMPRESSION: No sign of acute injury. Please note that all CT scans at this facility use dose modulation, iterative reconstruction, and/or weight-based dosing when appropriate to reduce radiation dose to as low as reasonably achievable. Dictated by Sharron Ward MD @ 08/03/2021 7:19:20 PM (Electronically Signed)
--- NOTE | 2021-08-04 09:09 | CR ---
Wrist Comp Min 3V Lt CLINICAL HISTORY: Fall, pain FINDINGS: There is no acute fracture or dislocation within the left wrist. There is apparent laxity at the radiocarpal joint. There is severe osteoarthritic change at the first carpometacarpal junction. There is some narrowing of the intercarpal joint spaces. Impression: Moderate osteoarthritic change No fracture seen
== END 2021-08-03 20:44 ==
LOC: JP.ED 16:22
DX: S06.6X9A Traumatic subarachnoid hemorrhage with loss of consciousness of unspecified duration, initial encounter (principal); E78.00 Pure hypercholesterolemia, unspecified; M06.9 Rheumatoid arthritis, unspecified; I10 Essential (primary) hypertension; Z79.899 Other long term (current) drug therapy; Z88.1 Allergy status to other antibiotic agents; Z88.8 Allergy status to other drugs, medicaments and biological substances; Z91.09 Other allergy status, other than to drugs and biological substances; Z91.011 Allergy to milk products; W18.39XA Other fall on same level, initial encounter
CPT/HCPCS: 70450; 70486; 73110-26-LT; 73110-LT; 99284-25